=== PATIENT | male | born 1950 | race Caucasian/White ===

== ENCOUNTER 2016-08-08 08:31 | Inpatient (IN) | payer MEDICARE, BC ==
[~2016-08-08] VITALS: Ht 177.8 cm; Wt 153.1 kg
[2016-08-08] MEDS ORDERED: SODIUM CHLORIDE 0.9% 1L BAG IV* STA (08:39)
[2016-08-08] MEDS ORDERED: CEFEPIME 2GM/50 ML (PMX) 50 ML IVPB STA (08:39)
[2016-08-08 08:44] VITALS: Ht 177.8 cm; Wt 153.1 kg
[2016-08-08] MEDS ORDERED: VANCOMYCIN 1 GM (PMX) 250 ML IVPB ONE (09:00)
--- NOTE | 2016-08-08 09:11 | ERA ---
ER Documentation Chief Complaint Date/Time DATE: 08/08/16 TIME: 09:07 Chief Complaint fever, hyperglycemia, and ALOC from SNF HPI Patient is a 66-year-old male who is brought from the longterm with altered level of consciousness. Unfortunately he is not able to speak at baseline. Reportedly his ability to communicate is that he looks at the staff when they talk to him. This morning he was not looking at the staff. This is the extent of the history that was sent with him this morning. They did note prior to sending him that his blood sugar was in the 300s. They did not report fever however he felt warm on arrival. The remainder of the symptoms are limited secondary to patient's inability to communicate. ROS All systems reviewed and are negative except as per history of present illness. Physical Exam Vitals Vital Signs Date Time Temp Pulse Resp B/P Pulse Ox O2 Delivery O2 Flow Rate FiO2 08/08/16 11:11 100.4 91 18 136/55 99 Room Air 08/08/16 10:21 Venti Mask 4 08/08/16 08:44 101.6 86 24 93/65 100 Physical Exam Const: [] Obese male with mild respiratory distress Head: Atraumatic normocephalic Eyes: Normal Conjunctiva ENT: Normal External Ears, Nose and Mouth, T-junction with a trach Neck: Full range of motion..~ No meningismus. Resp: Mild tachypnea with coarse inspiratory breath sounds, poor inspiratory effort Cardio: Irregular rate, not tachycardic Abd: Soft, obese, non tender, non distended. Normal bowel sounds Skin: No petechiae, skin changes of the lower extremities that appear chronic Ext: Patient contracted in both upper and lower extremities Neur: Awake Result Diagram: 08/08/16 0952 08/08/16 0952 Results 24 hrs Laboratory Tests Test 08/08/16 09:51 08/08/16 09:52 08/08/16 10:55 Bedside Glucose 256mg/dL Activated Partial Thromboplast Time 37.7Sec Alanine Aminotransferase (ALT/SGPT) 41IU/L Albumin 2.7g/dl Albumin/Globulin Ratio 0.65 Alkaline Phosphatase 158IU/L Anion Gap 19 Aspartate Amino Transf (AST/SGOT) 27IU/L Basophils # 0.010^3/ul Basophils % 0.1% Blood Urea Nitrogen 46mg/dl Calcium Level 10.1mg/dl Carbon Dioxide Level 26mmol/L Chloride Level 101mmol/L Creatinine 2.71mg/dl Direct Bilirubin 0.00mg/dl Eosinophils # 0.010^3/ul Eosinophils % 0.1% Globulin 4.10g/dl Glucose Level 252mg/dl Hematocrit 27.3% Hemoglobin 8.4g/dl INR International Normalized Ratio 1.98 Indirect Bilirubin 0.0mg/dl Lactic Acid Level 1.3mmol/L 1.4mmol/L Lymphocytes # 0.610^3/ul Lymphocytes % 3.8% Mean Corpuscular Hemoglobin 37.2pg Mean Corpuscular Hemoglobin Concent 30.8g/dl Mean Corpuscular Volume 120.8fl Mean Platelet Volume 9.5fl Monocytes # 0.710^3/ul Monocytes % 4.7% Neutrophils # 13.710^3/ul Neutrophils % 90.3% Nucleated Red Blood Cells # 0.010^3/ul Nucleated Red Blood Cells % 0.0/100WBC Platelet Count 53198^3/UL Potassium Level 3.8mmol/L Prothrombin Time 22.7Sec Prothrombin Time Ratio 1.8 Red Blood Count 2.2610^6/ul Red Cell Distribution Width 16.2% Sodium Level 142mmol/L Total Bilirubin 0.0mg/dl Total Protein 6.8g/dl Troponin I 0.091ng/ml White Blood Count 15.110^3/ul Current Medications Medications (Trade) Dose Ordered Sig/Chiquita Route PRN Reason Start Time Stop Time Status Last Admin Dose Admin Sodium Chloride 4610 ml 4,610 ml BOLUS OVER 2 HOURS STAT IV* 08/08/16 08:39 08/08/16 08:44 DC 08/08/16 10:56 Cefepime HCl 50 ml @ 100 mls/hr ONCE STAT IVPB 08/08/16 08:39 08/08/16 09:08 DC 08/08/16 10:56 Vancomycin HCl (Vancocin) 250 ml @ 125 mls/hr ONCE ONCE IVPB 08/08/16 09:00 08/08/16 10:59 DC 08/08/16 10:57 Procedures/MDM Differential includes but is not limited to fever, sepsis, pneumonia, urinary tract infection, altered mental status, stroke EKG: Rate/Rhythm: Atrial fibrillation at a rate of 80 bpm with poor R- wave progression across the precordium, Q waves noted in lead V1, occasional PVC , no evidence for acute ischemia, no old EKG available for comparison QRS, ST, T-waves: No changes consistent w/ acute ischemia Impression: No evidence of ischemia or arrhythmia Chest x-ray shows complete opacification in the left side of the chest with right sided patchiness consistent with pneumonia CT of the chest shows a soft tissue mass within the left bronchus consistent with either neoplasm or mucous plug, patient has infiltrates of the right upper and lower lobe consistent with pneumonia he also has lymphadenopathy and small pleural effusions Patient was rolled during his visit in order to be cleaned. It was noted that he has significant decubitus ulcers of his buttocks and sacrum. The wound care nurse has been consulted for further care. 11:35 AM: Patient has had no significant change in his clinical status. I have consulted his physician to be admitted to the hospital for further antibiotic therapy. This evaluation for mucous plug/neoplasm can be performed during his treatment here in the hospital. There is no family here at this time. If they arrive while he is here in the emergency department I will update them of his test results. Critical care time of 40 minutes not to include procedures. Departure Diagnosis: Primary Impression: Fever Qualified Code: R50.81 - Fever in other diseases Additional Impressions: Pneumonia Qualified Code: J18.9 - Pneumonia of both lungs due to infectious organism, unspecified part of lung Altered mental status Qualified Code: R40.3 - Persistent vegetative state Renal failure Diabetes Qualified Code: E11.65 - Type 2 diabetes mellitus with hyperglycemia, with long-term current use of insulin Decubitus ulcer of buttock, unstageable Qualified Code: L89.300 - Decubitus ulcer of buttock, unstageable, unspecified laterality Physical deconditioning Condition: Serious (PT ALREADY IN POOR PHYSICAL CONDITION WITH BILATERAL PNEUMONIA AND SEVERE DECUBITUS ULCER OF BUTTOCKS) LEX MILAN Aug 08, 2016 09:11
--- NOTE | 2016-08-08 09:26 | RADRPT ---
PROCEDURE: Chest Radiograph. CLINICAL INDICATION: Sepsis TECHNIQUE: Single frontal chest radiograph. COMPARISON: None available FINDINGS: A tracheostomy tube and right chest wall tunneled hemodialysis catheter in place. There is complete opacification of the left hemithorax with mediastinal shift to the left. There is nonspecific patch y opacities throughout the right lung. The bones are intact. IMPRESSION: 1. Complete opacification of the left hemithorax with mediastinal shift to the left consistent with volume loss which may be related to left pleural effusion and associated compressive atelectasis. T here is likely complete collapse of the left lung. Consider CT chest for further evaluation if shannon cated. Comparison to a prior imaging would be of benefit. 2. Mild patchy air space disease throughout the right lung. 3. Tracheostomy tube and right chest wall tunneled hemodialysis catheter. RPTAT: KK .Arnold Mclain MD, Date Time Electronically viewed and signed by .Arnold Mclain MD, on 08/08/2016 09:26 .B/
[2016-08-08 10:06] LABS: ADD SCAN DIFF NO
[2016-08-08 10:08] LABS: ABNORMAL IP MESSAGE 1; BASOPHILS % 0.1 % (0.0-2.0); EOSINOPHILS % 0.1 % (0.0-7.0); HEMATOCRIT 27.3 % (42.0-52.0); HEMOGLOBIN 8.4 g/dl (14.0-18.0); LYMPHOCYTES # 0.6 10^3/ul (0.8-2.9); LYMPHOCYTES % 3.8 % (15.0-51.0); MEAN CORPUSCULAR HEMOGLOBIN 37.2 pg (29.0-33.0); MEAN CORPUSCULAR HGB CONC 30.8 g/dl (32.0-37.0); MEAN CORPUSCULAR VOLUME 120.8 fl (82.0-101.0); MEAN PLATELET VOLUME 9.5 fl (7.4-10.4); MONOCYTE # 0.7 10^3/ul (0.3-0.9); MONOCYTES % 4.7 % (0.0-11.0); NEUTROPHIL # 13.7 10^3/ul (1.6-7.5); NEUTROPHILS % 90.3 % (39.0-77.0); PLATELET COUNT 206 10^3/UL (140-415); RED BLOOD COUNT 2.26 10^6/ul (4.70-6.10); RED CELL DISTRIBUTION WIDTH 16.2 % (11.5-14.5); WHITE BLOOD COUNT 15.1 10^3/ul (4.8-10.8)
[2016-08-08 10:18] LABS: ALBUMIN 2.7 g/dl (3.3-4.9); POTASSIUM 3.8 mmol/L (3.5-5.1)
[2016-08-08 10:20] LABS: CREATININE 2.71 mg/dl (0.61-1.24)
[2016-08-08 10:21] LABS: ALBUMIN/GLOBULIN RATIO 0.65; TOTAL PROTEIN 6.8 g/dl (6.1-8.1)
[2016-08-08 10:22] LABS: CALCIUM 10.1 mg/dl (8.4-10.2); INR 1.98; PROTIME 22.7 Sec (12.2-14.2); PT RATIO 1.8
[2016-08-08 10:23] LABS: PARTIAL THROMBOPLASTIN TIME 37.7 Sec (25.0-35.0)
[2016-08-08 10:32] LABS: TROPONIN-I 0.091 ng/ml (0.00-0.12)
--- NOTE | 2016-08-08 10:50 | RADRPT ---
PROCEDURE: CT brain without contrast CLINICAL INDICATION: Altered mental status TECHNIQUE: CT of the brain without contrast performed on a multidetector CT scanner, with multiplan ar reformats. One or more of the following dose reduction techniques were used: Automated exposure control, adjustment in mA and / or kV according to patient size, use of iterative reconstructive shu hnique. CTDIvol = 45 mGy; DLP = 810 mGy-cm. COMPARISON: None available FINDINGS: No acute intracranial hemorrhage is identified. No extra-axial fluid collection is seen. There is no mass effect. No midline shift is identified. Ventricles and sulci are mild to moderately enlarged compatible with volume loss. There are mild-moderate areas of hypodensity in the periventricular - deep white matter which are no nspecific but suggestive of chronic small vessel ischemic changes. Olmedo-white differentiation is pr eserved. Atherosclerotic calcifications of the proximal intracranial arteries are noted. Osseous structures are unremarkable. Mastoid air cells are partially opacified. IMPRESSION: 1. No evidence of acute intracranial pathology. 2. Mild to moderate volume loss, with mild to moderate chronic small vessel ischemic changes. RPTAT: VV .Nakul Armenta MD, MD Date Time Electronically viewed and signed by .Nakul Armenta MD, on 08/08/2016 10:50 .O/
--- NOTE | 2016-08-08 11:15 | RADRPT ---
PROCEDURE: CT Chest Without Contrast CLINICAL INDICATION: Clear with opacification of left lung, renal failure TECHNIQUE: Volumetric acquisition of the thorax was performed without the intravenous administrati on of contrast. Radiation Dose: CTDI = 16.75 mGy; DLP = 728.06 mGy-cm. COMPARISON: Chest radiograph done earlier on the same date The previous radiograph demonstrated nearly complete opacification of the left hemithorax. FINDINGS: An endotracheal tube and a right jugular dialysis catheter are seen to be in place. Lung singh: There is high-grade atelectasis of the entire left lung. There is soft tissue density within the left mainstem bronchus and within the lower lobe bronchi which could represent mucus or n eoplasm. There is alveolar infiltrate and atelectasis involving the right upper lobe as well as the posterior right lower lobe. The pleural spaces: Small bilateral gravitating pleural fluid accumulations are evident. There is n o pneumothorax. Lymph nodes: There is a 1.5 cm in short diameter subcarinal node. There are several 1.[address] pretracheal nodes. There are several nodes seen lateral to the left pulmonary artery measuring 1 cm in diameter. Cardiovascular structures: The heart is moderately enlarged and there is coronary artery disease. A gilson is normal in caliber. There is artifact from a dialysis catheter with the tip located at the a trial caval junction. The mediastinum is shifted leftward. Thyroid: The thyroid is not adequately seen. Superior abdominal structures: There is cholelithiasis. A 2.7 cm hypodense nodule extends superiorl y off the superior pole right kidney measuring 38 HU. There are staghorn calculi within the left ki dney. Osseous structures: The osseous elements are rarefied and there is anterior osteophytic bridging iggy picious for dish. IMPRESSION: 1. Nearly complete atelectasis of the left lung. There is soft tissue density within the left main stem and lower lobe bronchi which could represent mucous or neoplasm. There is consolidation with v olume loss to the right upper lobe and to the posterior right lower lobe. 2. Small bilateral gravitating pleural fluid accumulations. 3. Mediastinal adenopathy as described. 4. The mediastinum is shifted leftward and there is mild cardiomegaly with coronary artery disease. A dialysis catheter is seen with the tip at the atrial caval junction. 5. A 2.7 cm hypodense nodule extend superiorly off the superior pole of the right kidney and there are staghorn calculi within the left renal collecting system. 6. Cholelithiasis. 7. Osteoporosis with spine changes suspicious for diffuse idiopathic skeletal hyperostosis. 8. Tracheostomy tube in place. Physician Garett Date Time Electronically viewed and signed by Diana Barrientos Physician on 08/08/2016 11:14 /
[2016-08-08] MEDS ORDERED: ACETAMINOPHEN 325 MG TAB PO PRN (12:00)
[2016-08-08] MEDS ORDERED: ONDANSETRON 4 MG INJ IV PRN (12:00)
[2016-08-08 12:17] LABS: AADO2 Arterial 153.9 mmHg (7.0-24.0); Allen Test ACCEPTAB; Arterial Base Excess -2.6 mmol/L (-3.0-3); Arterial COHb 0.3 % (0.0-3.0); Arterial Fraction of Oxyhgb 91.5 % (93.0-99.0); Arterial HCO3 27.8 mmol/L (22.0-26.0); Arterial MetHb 0.3 % (0.0-1.5); Arterial Total Hemglobin 9.5 g/dl (12.0-18.0); MODE TRACH COLLAR
[2016-08-08] MEDS ORDERED: ACET650T82 GTB (12:27)
[2016-08-08] MEDS ORDERED: hydrALAzine 20 MG INJ IV ONE ×2 (12:30→14:00)
[2016-08-08] MEDS ORDERED: DARB60VI IJ (12:31)
[2016-08-08] MEDS ORDERED: BISA1POW RECTAL (12:31)
[2016-08-08] MEDS ORDERED: BUME2TAB18 G-TUBE (12:34)
[2016-08-08] MEDS ORDERED: COU3 GTB (12:34)
[2016-08-08] MEDS ORDERED: ROSU5TAB5 GTB (12:35)
[2016-08-08] MEDS ORDERED: IPRA3AMP INH (12:39)
[2016-08-08] MEDS ORDERED: FLUT16SP17 NASAL (12:39)
[2016-08-08] MEDS ORDERED: FAMO20TA18 GTB (12:39)
[2016-08-08] MEDS ORDERED: SS SC (12:41)
[2016-08-08] MEDS ORDERED: ACETAMINOPHEN 650MG/20.3ML CUP GTB PRN (12:41)
[2016-08-08] MEDS ORDERED: LANT3I SC (12:41)
[2016-08-08] MEDS ORDERED: PROT946L GTB (12:48)
[2016-08-08] MEDS ORDERED: PARO-37 GTB (12:48)
[2016-08-08] MEDS ORDERED: CHOL20003 GTB (12:48)
[2016-08-08] MEDS ORDERED: ASCO120P GTB (12:48)
[2016-08-08] MEDS ORDERED: ONDA4SOL GTB (12:48)
[2016-08-08] MEDS ORDERED: NEPH GTB (12:48)
[2016-08-08] MEDS ORDERED: SENN-53 GTB (12:48)
[2016-08-08] MEDS ORDERED: ONDANSETRON (2 MG/2.5 ML PO SYG) GTB PRN (13:00)
[2016-08-08] MEDS ORDERED: BISACODYL 10 MG SUPP PR PRN (13:00)
[2016-08-08] MEDS ORDERED: BUMETANIDE 1 MG TAB GTB PRN (13:00)
[2016-08-08] MEDS ORDERED: NON-FORMULARY/PATIENT OWN MED (Protein Supplement (Promod) 30 ML) GTB SCH (13:00)
--- NOTE | 2016-08-08 14:01 | HP ---
DATE OF ADMISSION: 08/08/2016 CHIEF COMPLAINT: Respiratory failure, sepsis. HISTORY OF PRESENT ILLNESS: This is a 66-year-old male with a past medical history of end-stage ronnie al disease on hemodialysis, history of chronic respiratory failure, status post tracheostomy, histor y of dysphagia, status post PEG, history of encephalopathy, history of diabetes, hypertension, histo ry of AFib, who presents to [facility] for evaluation of worsening mental status. The patient apparently at baseline is nonresponsive, but is able to track and was noted this daniel moon, the patient to be altered. The patient was subsequently transferred to [facility]. In the emergency room, the patient was noted to be febrile with a temperature of 101.6. The patient in the ER had an ABG drawn, which showed a pH 7.12, pCO2 of 87. Chest x-ray was obtained which showed patchy airspace disease throughout the right lung opacificatio n of left hemithorax, slight mediastinal shift to the left. A CT scan of the chest was also obtaine d which showed atelectasis at the left lung as well as soft tissue density left mainstem, left lower lobe bronchi which could represent mucus or neoplasm and consolidation of the right upper lobe, med iastinal adenopathy, mediastinal shift, dialysis catheter, hyperdense nodule in the superior aspect of right kidney, cholelithiasis, and osteoporosis. In the emergency room, the patient was given IV antibiotics, was given 1 liter of IV fluid. Upon my evaluation of patient at this time is currently nonresponsive, does retract to deep painful stimuli. There have been no reports of hemoptysis, hemetemesis, or hematochezia. PAST MEDICAL HISTORY: As stated above, history of chronic encephalopathy, history of end-stage steve l disease, history of hypertension, history of arrhythmia, history of morbid obesity, history of aime betes, hypertension, history of CHF, dyslipidemia. PAST SURGICAL HISTORY: Status post trach, status post PEG, status post dialysis PermCath. ALLERGIES: NO KNOWN DRUG ALLERGIES. FAMILY HISTORY: Noncontributory. SOCIAL HISTORY: Lives at a subacute facility. MEDICATIONS: The patient's medications have been reviewed and reconciled. REVIEW OF SYSTEMS: Unable to do adequate review of systems as patient is obtunded. Pertinent posit zachery stated in HPI, otherwise negative. PHYSICAL EXAMINATION: VITAL SIGNS: Blood pressure 157/130, respirations 15, pulse 99, temperature 98.0. HEENT: Head is normocephalic. Pupils are reactive to light. NECK: Supple. HEART: Irregularly irregular. LUNGS: Show has diminished to no breath sounds at left base. The right base has positive rhonchi. ABDOMEN: Obese, soft, positive PEG. EXTREMITIES: Negative for clubbing, cyanosis. Trace edema. DERMATOLOGIC: No rashes. MUSCULOSKELETAL: Positive decubitus wound noted. NEUROLOGIC: The patient is obtunded, limited exam. LABORATORY DATA: Shows a sodium 142, potassium 3.9, chloride 101, BUN 46, creatinine 2.71. White c ount 15.1, hemoglobin 8.4, hematocrit 27.3, platelet count 206. ABG showed as stated above, pH 7.12 , pCO2 of 87, pO2 of 67. IMAGING STUDIES: As stated in HPI. ASSESSMENT AND PLAN: This 66-year-old male who presents with: 1. Severe sepsis. Underlying source is likely secondary to healthcare-associated pneumonia. The p guera's CT scan chest x-ray shows evidence of right upper lobe infiltrate and left lung atelectasis . Plan at this point is to check blood cultures, urine culture and will check sputum culture. The p atient's lactic acid was checked within normal limits. We will check procalcitonin level. We will continue the patient on empiric antibiotics of cefepime, vancomycin and place an ID consult for eval uation. 2. Hypercapnic hypoxemic respiratory failure. The patient has been placed back on ventilator suppo rt. We will place a pulmonary consult for evaluation. ABG was reviewed. 3. Hypertensive urgency. The patient's systolic blood pressures is greater than 200. Plan is to g george patient hydralazine 5 mg IV x1. We will also order hemodialysis for volume removal. We will mi nimize IV fluids. 4. End-stage renal disease on dialysis 3 times weekly. The patient will be dialyzed today for 3 ho urs, 3 K bath, calcium 2.5, will ultrafiltrate as tolerated. 5. Acute on chronic encephalopathy. Etiology is likely secondary to sepsis, toxic metabolic. The patient's CT scan of the brain shows no evidence of acute cerebrovascular accident. We will continu e to monitor. Consider neurologic evaluation. 6. Anemia of chronic disease. Monitor hemoglobin and hematocrit levels. We will give Epogen neede d. 7. Mineral bone disorder. Continue to monitor calcium and phosphorus levels. No need for phosphat e binders. 8. Diabetes. Continue Lantus, Accu-Cheks and sliding scale. 9. Dysphagia, status post PEG. The patient will be resumed on tube feeding. 10. Decubitus wound. Place wound care consult, consider general surgery consult for evaluation and debridement. 11. History of arrhythmia. We will continue to monitor. Continue Coumadin. INR is near goal. Co nsider cardiology evaluation. 12. Gastrointestinal and deep venous thrombosis prophylaxis. Continue proton pump inhibitor and Co umadin. Dictated By: JENNIFER TAFOYA DO NR/ODALYS Conf#: [id number] DID#: [id number]
--- NOTE | 2016-08-08 15:21 | CONS ---
Date/Time of Note Date/Time of Note DATE: 08/08/16 TIME: 15:18 Assessment/Plan Assessment/Plan Chief Complaint/Hosp Course Sepsis Acute on chronic encephalopathy Acute respiratory failure HCAP ESRD DM Dysphagia Plan: Figueroa cx, bld cx with next HD, start Vanco and Merrem, pulmonary eval Problems: Consultation Date/Type/Reason Admit Date/Time Type of Consultation: ID Referring Provider: JENNIFER TAFOYA DO Social History Smoking Status: Unknown if ever smoked Exam/Review of Systems Vital Signs Vitals Vital Signs Date Time Temp Pulse Resp B/P Pulse Ox O2 Delivery O2 Flow Rate FiO2 08/08/16 14:55 86 13 89/54 100 Mechanical Ventilator 08/08/16 12:33 98.0 08/08/16 12:30 50 08/08/16 10:21 4 Results Result Diagram: 08/08/16 0952 08/08/16 0952 Results 24 hrs Laboratory Tests Test 08/08/16 08:39 08/08/16 09:51 08/08/16 09:52 08/08/16 10:55 Arterial Blood HCO3 27.8 H Arterial Blood Base Excess -2.6 Arterial Blood Oxygen Saturation 92.1 L Morgan Test ACCEPTAB Arterial Blood Gas Puncture Site Right Radial Arterial Blood Carboxyhemoglobin 0.3 Arterial Blood Date Drawn 08/08/2016 12:10:50 PM Arterial Blood Methemoglobin 0.3 Arterial Blood pCO2 (Temp correct) 87.2 *H Arterial Blood pH (Temp corrected) 7.121 *L Arterial Blood pO2 (Temp corrected) 67.8 L Blood Gas A-a O2 Differential 153.9 H Blood Gas Critical Value Read Back Gary MILAN MD Blood Gas Modality [facility] Blood Gas Notified Time 08/08/2016 12:16:55 PM Blood Gas Notified Whom SARA Blood Gas Specimen Source Blood arterial Blood Gas Temperature 37.0 FiO2 45.0 Oxyhemoglobin Percent 91.5 L Total Hemoglobin 9.5 L Bedside Glucose 256 H Activated Partial Thromboplast Time 37.7 H Alanine Aminotransferase (ALT/SGPT) 41 Albumin 2.7 L Albumin/Globulin Ratio 0.65 Alkaline Phosphatase 158 H Anion Gap 19 H Aspartate Amino Transf (AST/SGOT) 27 Basophils # 0.0 Basophils % 0.1 Blood Urea Nitrogen 46 H Calcium Level 10.1 Carbon Dioxide Level 26 Chloride Level 101 Creatinine 2.71 H Direct Bilirubin 0.00 Eosinophils # 0.0 Eosinophils % 0.1 Globulin 4.10 H Glucose Level 252 H Hematocrit 27.3 L Hemoglobin 8.4 L INR International Normalized Ratio 1.98 Indirect Bilirubin 0.0 Lactic Acid Level 1.3 1.4 Lymphocytes # 0.6 L Lymphocytes % 3.8 L Mean Corpuscular Hemoglobin 37.2 H Mean Corpuscular Hemoglobin Concent 30.8 L Mean Corpuscular Volume 120.8 H Mean Platelet Volume 9.5 Monocytes # 0.7 Monocytes % 4.7 Neutrophils # 13.7 H Neutrophils % 90.3 H Nucleated Red Blood Cells # 0.0 Nucleated Red Blood Cells % 0.0 Platelet Count 206 Potassium Level 3.8 Prothrombin Time 22.7 H Prothrombin Time Ratio 1.8 Red Blood Count 2.26 L Red Cell Distribution Width 16.2 H Sodium Level 142 Total Bilirubin 0.0 L Total Protein 6.8 Troponin I 0.091 White Blood Count 15.1 H Test 08/08/16 13:45 Lactic Acid Level 2.0 Medications Medications Current Medications Cholecalciferol (Vitamin D) 2,000 unit DAILY GTB ; Start 08/09/16 at 09:00; Status UNV Famotidine (Pepcid) 20 mg DAILY GTB ; Start 08/09/16 at 09:00; Status UNV Fluticasone Propionate (Flonase 0.05% Nasal) 1 spray DAILY NASAL ; Start at 09:00; Status UNV Insulin Glargine (Lantus) 8 unit QHS SC ; Start 08/08/16 at 21:00; Status UNV Albuterol/ Ipratropium (Duoneb) 3 ml Q6 PRN INH SHORTNESS OF BREATH; Start at 13:00; Status UNV Multivit/Ca Carb/ B Cmplx/FA/Prenat (Magui-Cedric) 1 tab DAILY GTB ; Start at 09:00; Status UNV Ondansetron HCl (Zofran (Ped)) 4 mg Q6H PRN GTB NAUSEA AND/OR VOMITING; Start 08/08/16 at 13:00; Status UNV Paroxetine HCl (Paxil) 20 mg DAILY GTB ; Start 08/09/16 at 09:00; Status UNV Senna (Senokot) 2 tab hs GTB ; Start 08/08/16 at 21:00; Status UNV Warfarin Sodium (Coumadin) 4 mg DAILY GTB ; Start 08/09/16 at 09:00; Status UNV Miscellaneous Information 650 mg Q4 GTB ; Start 08/08/16 at 13:00; Status UNV Miscellaneous Information 250 mg DAILY GTB ; Start 08/09/16 at 09:00; Status UNV Miscellaneous Information 10 mg DAILY PRN RECTAL CONSTIPATION; Start 08/08/16 at 13:00; Status UNV Miscellaneous Information 2 mg DAILY PRN G-TUBE william; Start 08/08/16 at 13:00; Status UNV Miscellaneous Information 30 ml TID GTB ; Start 08/08/16 at 13:00; Status UNV Miscellaneous Information 5 mg QHS GTB ; Start 08/08/16 at 21:00; Status UNV Miscellaneous Information (* Miscellaneous Pharmacy Order) HYPOGLYCEMIA PROTOCOL w... ONCE ONCE XX ; Start 08/08/16 at 13:00; Stop 08/08/16 at 13:01; Status UNV Miscellaneous Information (* Miscellaneous Pharmacy Order) Discontinue Glyburide , Glipizide,... ONCE ONCE XX ; Start 08/08/16 at 13:00; Stop 08/08/16 at 13:01 ; Status UNV Miscellaneous Information (* Miscellaneous Pharmacy Order) Discontinue all previ... ONCE ONCE XX ; Start 08/08/16 at 13:00; Stop 08/08/16 at 13:01; Status UNV SLAVA CHILDRESS NP Aug 08, 2016 15:20
[2016-08-08] MEDS ORDERED: VANCOMYCIN IV PER PHARMACY XX SCH (15:30)
[2016-08-08] MEDS ORDERED: SOD CHLORIDE 0.9% 1,000 ML IV STA ×2 (16:33→18:24)
[2016-08-08] MEDS ORDERED: LIDOCAINE 1% (MDV) 20 ML INJ SC ONE (18:30)
[2016-08-08] MEDS ORDERED: NORepinephrine 8MG/250 ML (PMX 250 ML ONE (19:01)
[2016-08-08] MEDS ORDERED: NORepinephrine 8MG/250 ML (PMX 250 ML IV STA (19:01)
[2016-08-08] MEDS ORDERED: ALBUTEROL/IPRATROPIUM (NEB) 3 ML AMP INH PRN (20:00)
[2016-08-08] MEDS: SENNA TAB GTB SCH (20:54)
[2016-08-08] MEDS: INSULIN GLARGINE [LANtus] 3 ML PEN SC SCH (20:56)
[2016-08-08] MEDS ORDERED: DEXTROSE 50% 50 ML SYRINGE IV PRN ×2 (21:00)
[2016-08-08] MEDS: INSULIN ASPART [NOVOLOG] 3 ML PEN SC SCH ×2 (21:00→21:32)
[2016-08-08] MEDS ORDERED: GLUCOSE GEL 15 GRAM TUBE BUCCAL PRN (21:00)
[2016-08-08] MEDS ORDERED: GLUCAGON 1 MG INJ IM PRN (21:00)
[2016-08-08] MEDS ORDERED: GLUCOSE GEL 15 GRAM TUBE PO PRN ×2 (21:00)
[2016-08-08] MEDS: MEROPENEM 500 MG/100 ML (PMX) 100 ML IVPB SCH (21:25)
[2016-08-08] MEDS ORDERED: VANCOMYCIN 1 GM in NS 250 ML IVPB ONE (23:45)
[2016-08-09] VITALS (79 sets, daily range): BP systolic 75–136; BP diastolic 36–117; PULSE 75–100; RESP 12–34; TEMP 98.7
[2016-08-09 03:31] LABS: AADO2 Arterial 107.8 mmHg (7.0-24.0); Allen Test ACCEPTAB; Arterial Base Excess -4.9 mmol/L (-3.0-3); Arterial COHb 0.3 % (0.0-3.0); Arterial Fraction of Oxyhgb 96.6 % (93.0-99.0); Arterial HCO3 20.9 mmol/L (22.0-26.0); Arterial MetHb 0.2 % (0.0-1.5); Arterial Total Hemglobin 9.9 g/dl (12.0-18.0); MODE VENT - AC
[2016-08-09 05:43] LABS: ADD SCAN DIFF NO
[2016-08-09 05:59] LABS: HEMATOCRIT 25.6 % (42.0-52.0); HEMOGLOBIN 7.9 g/dl (14.0-18.0); MEAN CORPUSCULAR HEMOGLOBIN 36.2 pg (29.0-33.0); MEAN CORPUSCULAR HGB CONC 30.9 g/dl (32.0-37.0); MEAN CORPUSCULAR VOLUME 117.4 fl (82.0-101.0); MEAN PLATELET VOLUME 10.4 fl (7.4-10.4); RED BLOOD COUNT 2.18 10^6/ul (4.70-6.10); WHITE BLOOD COUNT 12.3 10^3/ul (4.8-10.8)
[2016-08-09 06:05] LABS: POTASSIUM 3.1 mmol/L (3.5-5.1)
[2016-08-09 06:07] LABS: CREATININE 2.94 mg/dl (0.61-1.24)
[2016-08-09 06:08] LABS: CALCIUM 10.1 mg/dl (8.4-10.2); MAGNESIUM 2.6 mg/dl (1.7-2.5); PHOSPHORUS 2.9 mg/dl (2.5-4.9)
[2016-08-09 07:11] LABS: PLATELET COUNT 161 10^3/UL (140-415)
[2016-08-09] MEDS ORDERED: POTASSIUM CHLORIDE 20 MEQ POWDER FOR ORAL SOLN GTB ONE (08:00)
--- NOTE | 2016-08-09 08:54 | PN ---
DATE: 08/09/2016 SUBJECTIVE: The patient is currently in intensive care unit on pressor support, critically ill over night, no other events noted. No hematemesis, hematochezia. The patient is mildly more alert, able to track with his eyes. No other events noted. OBJECTIVE: VITAL SIGNS: Blood pressure is 94/68, respirations 15, pulse 83, temperature 98.2. I's AND O'S: The patient 1100 in, no urinary output. HEENT: Head is normocephalic. Pupils are reactive. NECK: Shows trach. HEART: Regular rate. LUNGS: Show diminished breath sounds at base. ABDOMEN: Soft, obese, nontender to palpation. Positive PEG. EXTREMITIES: Negative for clubbing, cyanosis. Trace edema. DERMATOLOGIC: No rashes. MUSCULOSKELETAL: Positive decubitus wound. NEUROLOGIC: No change in exam. DERMATOLOGIC: No rashes. LABORATORY DATA: Shows a sodium 144, potassium 3.1, BUN 25, creatinine 2.94, magnesium 2.9, pH 7.31 , PCO2 42, pO2 92. ASSESSMENT AND PLAN: 1. Septic shock, etiology is likely multifactorial secondary to healthcare-associated pneumonia, po ssible urinary tract infection and/or decubitus wound. The patient currently is on pressor support and IV antibiotics. The patient's blood cultures and urine culture have been sent. The patient's la ctic acid levels are within normal limits. Plan at this point is to continue current treatment plan . Continue to wean off pressor support. Continue antibiotic therapy. The patient is status post 4 liters of IV fluids. Will minimize IV fluids as pressor support is being titrated off as patient i s a dialysis patient. Will follow up with Infectious Disease. 2. Hypercapnic hypoxemic respiratory failure. The patient was placed back on ventilator support. Repeat ABG has been reviewed with improvement. Continue current vent settings. We will follow up w ith pulmonary. 3. Hypertension. The patient now is in shock. Will continue to monitor. Continue treatment plan as stated above. 4. End-stage renal disease. Patient scheduled for dialysis today for 3 hours on 3 K bath, calcium 2.5. Will minimalize ultrafiltration. 5. Hypokalemia. We will replete with potassium chloride. 6. Acute on chronic encephalopathy. Etiology is likely septic, toxic metabolic. The patient's CT scan showed no acute findings. Will continue to monitor. Consider neurologic evaluation. 7. Anemia of chronic disease. Continue to monitor H and H levels. Continue Epogen. 8. Mineral bone disorder. Continue to monitor calcium and phosphorus levels. No need for phosphate binders. 9. Diabetes. Will continue Lantus, Accu-Cheks and sliding scale. 10. Dysphagia. Status post PEG. Will place a dietary consult, start tube feeds. 11. Decubitus wound. Continue wound care, offloading. Consider general surgical consult. 12. History of arrhythmia, atrial fibrillation, patient is currently rate controlled on Coumadin. INR is near goal. Follow up with cardiology. 13. GI and deep vein thrombosis prophylaxis. Continue proton pump inhibitor and Coumadin. Please note I spent over 40 minutes of critical care time with this patient. Dictated By: JENNIFER KNOWLES/ODALYS Conf#: [id number] DID#: [id number]
[2016-08-09] MEDS ORDERED: VANCOMYCIN 1 GM in NS 250 ML IVPB ONE (09:00)
--- NOTE | 2016-08-09 09:20 | CONS ---
DATE OF ADMISSION: 08/08/2016 DATE OF CONSULTATION: 08/09/2016 CARDIOLOGY CONSULTATION REFERRING PHYSICIAN: Dr. Pereyra REASON FOR CONSULTATION: Atrial fibrillation, shock. CHIEF COMPLAINT: Altered level of consciousness. HISTORY OF PRESENT ILLNESS: Thank you for this referral. History obtained from the patient's chart , review of the old chart, discussion with physician and staff including Dr. Pereyra. The patient i s unable to provide history ____ complicated medical history status post tracheostomy and chronic re spiratory failure who was brought in because after of consciousness. The patient was noted to be fe brile and in shock and septic. He has atrial fibrillation. Apparently he has been on Coumadin. Al so markedly anemic. Has been admitted to intensive care unit overnight, has been placed on Levophed drip. This morning, his blood pressure has improved on antibiotic, his Levophed is being weaned of f. He was also in respiratory acidosis on admission with pH of 7.12 and pCO2 of 87. The patient is unable to provide any history to me. His rhythm has showed atrial fibrillation, but his rate has b een under good control so far. PAST MEDICAL HISTORY: History of renal failure, on dialysis, history of chronic respiratory failure , status post tracheostomy, vent dependent, history of hypertension, history of atrial fibrillation, morbid obesity, diabetes, hypertension, CHF, dyslipidemia, possible strokes in the past as well. PAST SURGICAL HISTORY: Tracheostomy, PEG placement, dialysis access placement. ALLERGIES: NO KNOWN REPORTED ALLERGIES. FAMILY HISTORY: No reported early coronary artery disease. SOCIAL HISTORY: The patient lives in a subacute facility. At this point there is no active tobacco , alcohol, or drug abuse. Unable to obtain the old records. MEDICATIONS: As per medical reconciliation, personally reviewed. REVIEW OF SYSTEMS: Unable to obtain except for above-mentioned. PHYSICAL EXAMINATION: VITAL SIGNS: Temperature 98.1, T-max is 101.6 degrees on admission, heart rate of 83, blood pressur e 94/68, respiration rate of 17, saturating 100% on the vent, 35% oxygen. HEENT: Normocephalic, atraumatic. Morbidly obese gentleman. Status post tracheostomy, on the vent . Eyes: Pupils are equal and round. NECK: Status post tracheostomy, on the vent. CARDIOVASCULAR: Regular rate and rhythm. Distant heart sounds. Difficult to assess for murmur. PULMONARY: Mild rhonchi, diffuse. No wheezes heard. GASTROINTESTINAL: Obese, soft, nontender. Status post PEG placement. EXTREMITIES: Positive lower extremity edema. Positive hyperpigmentation of lower extremities. NEUROLOGIC: Opens his eyes; however, does not appear to be following commands. PSYCHIATRIC: Appears to be calm. LABORATORY DATA: INR was 1.98 on admission yesterday. Sodium 144, potassium 3.1, BUN of 35, creati nine 2.94, glucose of 158. WBC of 12.3, hemoglobin 7.9, platelets of 161. DIAGNOSTIC DATA: Chest x-ray done yesterday showed complete opacification of left hemithorax. CT o f the chest done yesterday shows nearly complete atelectasis of the left lung. There is soft tissue density within the left mediastinum and left lower lobe bronchi which could present mucus or neopla sm. There is a consolidation with volume loss in the right upper lobe and posterior right lower lob e. Small bilateral pleural accumulation. There is some adenopathy. Mild cardiomegaly with coronar y artery disease. Dialysis catheter was seen, 2.7 cm hyperdense nodule extends off of the superior pole of the right kidney. Cholelithiasis. EKG was personally reviewed, showed atrial fibrillation. I personally reviewed. Low voltage. Poss ible anterior infarct, age undetermined. There is a PVC noted as well. ASSESSMENT AND PLAN: 1. Septic shock. 2. Hypoxemic respiratory failure. 3. Hypercapnic respiratory failure, acute on chronic. 4. Renal failure, on dialysis. 5. History of hypertension. 6. Diabetes. 7. Electrolyte abnormalities and hypokalemia. 8. Chronic atrial fibrillation, on anticoagulation. 9. Anemia. 10. Dysphagia, status post percutaneous endoscopic gastrostomy placement. 11. History of decubitus wounds. RECOMMENDATIONS: Antibiotic is managed as per ID recommendation, follow with pulmonary recommendati ons, ____ suctioning and possibly bronchoscopy, will be deferred to pulmonary if needed. Coumadin w ill be continued. PT/INR will be checked again tomorrow and adjusted. INR currently is a 2. We di d additional antibiotic, that may need to be decreased, Coumadin. The patient will be titrated off of the Levophed as tolerated. I will also check an echocardiogram to evaluate for LV function. Ángela lysis as per renal will be continued. We will continue to follow along with you. Dictated By: THOM HUSAIN/ODALYS Conf#: [id number] DID#: [id number] CC: JENNIFER PEREYRA DO;*EndCC*
[2016-08-09 09:34] LABS: INR 2.16; PROTIME 24.3 Sec (12.2-14.2); PT RATIO 1.9
[2016-08-09] MEDS: INSULIN ASPART [NOVOLOG] 3 ML PEN SC SCH ×4 (09:56→21:00)
[2016-08-09 09:58] LABS: LYMPHOCYTES # 0.4 10^3/ul (0.8-2.9); MONOCYTE # 0.9 10^3/ul (0.3-0.9); NEUTROPHIL # 10.7 10^3/ul (1.6-7.5); PLATELETS CLUMPS RARE
--- NOTE | 2016-08-09 10:15 | CONS ---
Date/Time of Note Date/Time of Note DATE: 08/09/16 TIME: 10:09 Assessment/Plan Assessment/Plan Additional Assessment/Plan Chest x-ray was reviewed from yesterday which is showing extensive consolidation involving the left lung. There is volume loss as well and mediastinal shift towards the left. Ventilator setting; are AC of 16 tidal volume 550, PEEP of 5, 30% FiO2. Assessment recommendations; 1. Patient admitted for sepsis and healthcare associated pneumonia involving the left lung. Currently on appropriate antibiotic regimen. 2. Multiple other comorbidities as outlined above. Patient currently getting hemodialyzed at bedside. Continue current treatment. Obtain follow-up chest x-ray in 24 hours. The patient may need to have a bronchoscopy performed. Consultation Date/Type/Reason Admit Date/Time Date of Consultation: Aug 09, 2016 Type of Consultation: Pulmonary/critical care Reason for Consultation Pulmonary consultation obtained for evaluation of respiratory failure. Patient admitted for sepsis. History presenting; patient is a 66-year-old white male who was admitted [facility] for evaluation of hypoxemia upon evaluation a chest x-ray was done which is showing complete white out of the left lung. Possibly indicative of underlying extensive pneumonia versus mucus plugging. Patient currently getting hemodialysis at bedside. She was obtained from medical records. The patient is awake but unresponsive to any commands. Past medical history; 1. History of CVA. 2. History of chronic respiratory failure. It is unclear at this point where the patient is ventilator dependent orders maintained on T piece in the prison. 3. Morbid obesity. 4. Cardiac arrhythmia. 5. End-stage renal disease, on hemodialysis. 6. Hypertension. 7. Diabetes. 8. History of sacral decubitus wound. 9. History of tracheostomy and G-tube placement. 10. Based upon examination, history of right thigh surgery. Medications; were reviewed. Allergies; are none. Next Social history; family history; occupational history; the not available. Next Review of systems; not obtainable. General exam; elderly male, morbidly obese, on ventilator via tracheostomy awake but does not respond to any commands. Social History Smoking Status: Unknown if ever smoked Exam/Review of Systems Vital Signs Vitals Vital Signs Date Time Temp Pulse Resp B/P Pulse Ox O2 Delivery O2 Flow Rate FiO2 08/09/16 09:00 81 19 120/80 100 08/09/16 07:43 35 08/09/16 07:30 98.1 Mechanical Ventilator 08/08/16 10:21 4 Intake and Output 08/08/16 08/08/16 08/09/16 15:00 23:00 07:00 Intake Total 1115.00 ml 25.500 ml Balance 1115.00 ml 25.500 ml Exam HEENT exam; supple neck, JVD difficult to see because of short neck. Patient has fair dentition. Tracheostomy in place with clean insertion site. No neck masses, no thyromegaly. Chest examination; diminished breath sounds throughout. S1-S2 audible, no murmurs. Regular rhythm. Abdomen exam is; is grossly protuberant. G-tube in place. Bowel sounds audible. Extremity examination; there is a well-healed right thigh scar. Pulses 1+ bilaterally. There is trace edema. APPOINTMENT SETTER examination; patient is awake but does not follow any commands. Has contractures involving all 4 extremities. Results Result Diagram: 08/09/16 0530 08/09/16 0530 Results 24 hrs Laboratory Tests Test 08/08/16 10:55 08/08/16 13:45 08/08/16 20:54 08/08/16 23:49 Lactic Acid Level 1.4 2.0 Bedside Glucose 197 Arterial Blood HCO3 20.9 L Arterial Blood Base Excess -4.9 L Arterial Blood Oxygen Saturation 97.1 Morgan Test ACCEPTAB Arterial Blood Gas Puncture Site Right Radial Arterial Blood Carboxyhemoglobin 0.3 Arterial Blood Date Drawn 08/09/2016 3:20:58 AM Arterial Blood Methemoglobin 0.2 Arterial Blood pCO2 (Temp correct) 42.0 Arterial Blood pH (Temp corrected) 7.315 L Arterial Blood pO2 (Temp corrected) 92.9 Blood Gas A-a O2 Differential 107.8 H Blood Gas Actual Respiration Rate 18 Blood Gas Low PEEP Setting 5.0 Blood Gas Modality VENT - AC Blood Gas Notified Time 08/09/2016 3:31:44 AM Blood Gas Notified Whom MA Blood Gas Respiration Rate 16.0 Blood Gas Specimen Source Blood arterial Blood Gas Temperature 37.0 Blood Gas Tidal Volume 550.0 FiO2 35.0 Oxyhemoglobin Percent 96.6 Total Hemoglobin 9.9 L Test 08/09/16 05:30 08/09/16 08:16 08/09/16 09:10 Anion Gap 17 H Band Neutrophils % 3.0 Blood Urea Nitrogen 55 H Calcium Level 10.1 Carbon Dioxide Level 21 Chloride Level 109 Clumped Platelets RARE Creatinine 2.94 H Glucose Level 158 Hematocrit 25.6 L Hemoglobin 7.9 L Lymphocytes # 0.4 L Lymphocytes % 3.0 L Magnesium Level 2.6 H Mean Corpuscular Hemoglobin 36.2 H Mean Corpuscular Hemoglobin Concent 30.9 L Mean Corpuscular Volume 117.4 H Mean Platelet Volume 10.4 Monocytes # 0.9 Monocytes % 7.0 Neutrophils # 10.7 H Neutrophils % 87.0 H Phosphorus Level 2.9 Platelet Count 161 # Potassium Level 3.1 L Red Blood Count 2.18 L Red Cell Distribution Width 16.0 H Sodium Level 144 White Blood Count 12.3 H Bedside Glucose 165 INR International Normalized Ratio 2.16 Prothrombin Time 24.3 H Prothrombin Time Ratio 1.9 Medications Medications Current Medications Cholecalciferol (Vitamin D) 2,000 unit DAILY GTB ; Start 08/09/16 at 09:00 Famotidine (Pepcid) 20 mg DAILY GTB ; Start 08/09/16 at 09:00 Fluticasone Propionate (Flonase 0.05% Nasal) 1 spray DAILY NASAL ; Start at 09:00 Insulin Glargine (Lantus) 8 unit QHS SC ; Start 08/08/16 at 21:00 Multivit/Ca Carb/ B Cmplx/FA/Prenat (Magui-Cedric) 1 tab DAILY GTB ; Start at 09:00 Ondansetron HCl (Zofran (Ped)) 4 mg Q6H PRN GTB NAUSEA AND/OR VOMITING; Start 08/08/16 at 13:00 Paroxetine HCl (Paxil) 20 mg DAILY GTB ; Start 08/09/16 at 09:00 Senna (Senokot) 2 tab hs GTB ; Start 08/08/16 at 21:00 Warfarin Sodium (Coumadin) 4 mg DAILY@17 GTB ; Start 08/09/16 at 17:00 Miscellaneous Information 650 mg Q4 GTB ; Start 08/08/16 at 13:00; Status UNV Ascorbic Acid (Vitamin C) 250 mg DAILY GTB ; Start 08/09/16 at 09:00 Bisacodyl (Dulcolax Supp) 10 mg DAILY PRN [place] CONSTIPATION; Start 08/08/16 at 13 :00 Bumetanide (Bumex) 2 mg DAILY@06 PRN GTB EDEMA; Start 08/08/16 at 13:00 Atorvastatin Calcium 20 mg 20 mg DAILY@21 PO ; Start 08/09/16 at 21:00 Meropenem (Merrem 500 Mg/ 100 ml (Pmx)) 100 ml @ 200 mls/hr Q24H IVPB Last administered on 08/08/16 21:25; Admin Dose 200 MLS/HR; Start 08/08/16 at 21:00 Miscellaneous Information 1 ea NOTE XX ; Start 08/08/16 at 21:00 Glucose (Glutose) 15 gm Q15M PRN PO DECREASED GLUCOSE; Start 08/08/16 at 21:00 Glucose (Glutose) 22.5 gm Q15M PRN PO DECREASED GLUCOSE; Start 08/08/16 at 21: 00 Dextrose (D50w Syringe) 25 ml Q15M PRN IV DECREASED GLUCOSE; Start 08/08/16 at 21:00 Dextrose (D50w Syringe) 50 ml Q15M PRN IV DECREASED GLUCOSE; Start 08/08/16 at 21:00 Glucagon (Glucagen) 1 mg Q15M PRN IM DECREASED GLUCOSE; Start 08/08/16 at 21:00 Glucose (Glutose) 15 gm Q15M PRN BUCCAL DECREASED GLUCOSE; Start 08/08/16 at 21 :00 Insulin Aspart NOVOLOG *MILD* ALGORI... Q4 SC Last administered on 08/09/16 09 :56; Admin Dose 1 UNIT; Start 08/09/16 at 09:00 Vancomycin HCl (Vancocin) 250 ml @ 125 mls/hr ONCE ONCE IVPB ; Start 08/09/16 at 09:00; Stop 08/09/16 at 10:59 GELY FU Aug 09, 2016 10:15
[2016-08-09] MEDS: MULTIVIT/CA CARB/B CMPLX/FA TAB GTB SCH ×2 (11:50→15:08)
[2016-08-09] MEDS: FAMOTIDINE 20 MG TAB GTB SCH ×2 (11:50→15:09)
--- NOTE | 2016-08-09 14:34 | PN ---
DATE: 08/09/2016 SUBJECTIVE: No acute changes overnight. The patient is awake, noncommunicative, lying comfortably in bed. He is afebrile. OBJECTIVE: VITAL SIGNS: Temperature 98.1, pulse 90, respirations 23, blood pressure 126/61, satura tion 100 on 30 FIO2. WBC 12.3, H and H 7.9 and 25.6, platelets 161, neutrophils 87. MICROBIOLOGY: Blood cultures preliminary negative. DIAGNOSTICS: CT of the chest revealed nearly complete atelectasis of the left lung. Questionable m ucous plug versus neoplasm. Also, consolidation with volume loss to the right upper lobe and to the posterior and right lower lobe, mediastinal adenopathy, cholelithiasis, osteosclerosis of the spin e. INDWELLINGS: Trach, PEG, right chest Perm-A-Cath. ANTIMICROBIALS: The patient is on: 1. IV vancomycin. 2. Meropenem. PHYSICAL EXAMINATION: GENERAL: This is a morbidly obese, elderly white man who is lying comfortably in bed. HEENT: Head atraumatic, normocephalic. Sclerae anicteric. Buccal mucosa dry. NECK: Obese, tracheostomy present. CHEST: Rise symmetrical. Breath sounds diminished to bases. HEART: S1, S2. ABDOMEN: Soft, bowel tones present. EXTREMITIES: Without cyanosis. Bilateral trace edema. SKIN: With multiple chronic wounds. ASSESSMENT: 1. Severe sepsis status post shock. 2. Healthcare-associated pneumonia. 3. Acute on chronic respiratory failure. 4. Pxyij-oe-stbebxv encephalopathy. 5. End-stage renal disease. 6. Multiple decubitus. 7. Diabetes. PLAN: The patient remains hemodynamically stable. He is being seen by multiple consultants. Cultu res are pending. Continue present care, antibiotics, local wound care. Dictated By: SLAVA CHILDRESS BILL ADJUSTER for MEKA MATOS/NTS Conf#: [id number] DID#: [id number]
[2016-08-09] MEDS: FLUTICASONE 0.05% 16 GM NAS SPRAY NASAL SCH (15:09)
[2016-08-09] MEDS: ASCORBIC ACID 250 MG TAB GTB SCH (15:09)
[2016-08-09] MEDS: CHOLECALCIFEROL 2,000 UNIT CAP GTB SCH (15:09)
[2016-08-09] MEDS: WARFARIN 2 MG TAB GTB SCH (17:20)
[2016-08-09] MEDS: PAROXETINE 20 MG TAB GTB SCH (17:20)
[2016-08-09] MEDS: EPOETIN 10000 UNITS/1 ML INJ (ESRD) SC SCH (18:05)
[2016-08-09] MEDS ORDERED: LIDOCAINE 1% (MDV) 20 ML INJ ONE (19:46)
[2016-08-09] MEDS: SENNA TAB GTB SCH (20:45)
[2016-08-09] MEDS: ATORVASTATIN 20 MG TAB PO SCH (20:45)
[2016-08-09] MEDS: MEROPENEM 500 MG/100 ML (PMX) 100 ML IVPB SCH (20:45)
[2016-08-09] MEDS: COLLAGENASE 30 GM TUBE TOP SCH (20:46)
--- NOTE | 2016-08-09 20:56 | OPR ---
DATE OF OPERATION: PREOPERATIVE DIAGNOSIS: Respiratory failure. POSTOPERATIVE DIAGNOSIS: Respiratory failure. OPERATION PERFORMED: Left femoral central line placement. SURGEON: Octavio Gillette MD ANESTHESIA: Local. CONSENT: Risks, benefits, complications, alternative therapies explained to the patient and the [facility] nathan; consent obtained. OPERATIVE TECHNIQUE IN DETAIL: The patient was placed in supine position, prepped and draped in the usual sterile fashion. Lidocaine 1% was used throughout the operation for local anesthesia. Acces s was gained in the left femoral vein. Guidewire was advanced through without any difficulty. Subc utaneous tissues were dilated. Central line advanced over the guidewire. Guidewire secured to the skin using silk sutures. All ports of the catheter were aspirated and injected using saline solutio n. Patient tolerated procedure well. Dictated By: OCTAVIO MOCTEZUMA/ODALYS Conf#: [id number] DID#: [id number]
[2016-08-09] MEDS: INSULIN GLARGINE [LANtus] 3 ML PEN SC SCH (22:03)
[2016-08-10] VITALS (67 sets, daily range): BP systolic 73–140; BP diastolic 45–89; PULSE 74–99; RESP 17–30
[2016-08-10] MEDS: INSULIN ASPART [NOVOLOG] 3 ML PEN SC SCH ×6 (01:06→20:53)
[2016-08-10 04:37] LABS: ADD SCAN DIFF NO
[2016-08-10 04:50] LABS: BASOPHILS % 0.2 % (0.0-2.0); EOSINOPHILS # 0.1 10^3/ul (0.0-0.5); EOSINOPHILS % 0.8 % (0.0-7.0); HEMATOCRIT 26.5 % (42.0-52.0); LYMPHOCYTES % 9.8 % (15.0-51.0); MEAN CORPUSCULAR HEMOGLOBIN 34.8 pg (29.0-33.0); MEAN CORPUSCULAR HGB CONC 30.2 g/dl (32.0-37.0); MEAN CORPUSCULAR VOLUME 115.2 fl (82.0-101.0); MEAN PLATELET VOLUME 9.9 fl (7.4-10.4); MONOCYTE # 0.5 10^3/ul (0.3-0.9); MONOCYTES % 5.5 % (0.0-11.0); NEUTROPHILS % 82.7 % (39.0-77.0); NUCLEATED RED BLOOD CELLS% 0.2 /100WBC (0.0-0.0); PLATELET COUNT 213 10^3/UL (140-415); RED CELL DISTRIBUTION WIDTH 15.9 % (11.5-14.5); WHITE BLOOD COUNT 9.7 10^3/ul (4.8-10.8)
[2016-08-10 04:54] LABS: INR 3.37; PROTIME 34.6 Sec (12.2-14.2); PT RATIO 2.7
[2016-08-10 05:00] LABS: ALBUMIN 2.5 g/dl (3.3-4.9)
[2016-08-10 05:02] LABS: CREATININE 2.52 mg/dl (0.61-1.24); MAGNESIUM 2.5 mg/dl (1.7-2.5); PHOSPHORUS 2.5 mg/dl (2.5-4.9)
[2016-08-10 05:03] LABS: ALBUMIN/GLOBULIN RATIO 0.64; TOTAL PROTEIN 6.4 g/dl (6.1-8.1)
[2016-08-10 05:06] LABS: POTASSIUM 2.9 mmol/L (3.5-5.1)
[2016-08-10] MEDS ORDERED: POTASSIUM CHLORIDE (SR) 20 MEQ TAB PO ONE (05:41)
[2016-08-10] MEDS ORDERED: POTASSIUM CHLORIDE 20 MEQ POWDER FOR ORAL SOLN GTB ONE (06:00)
--- NOTE | 2016-08-10 08:03 | CONS ---
Date/Time of Note Date/Time of Note DATE: 08/10/16 TIME: 08:00 Assessment/Plan Assessment/Plan Additional Assessment/Plan Ventilator settings are AC of 16, tidal volume 550, PEEP of 5, 30% FiO2. Next Assessment recommendations; 1. Patient admitted for severe pneumonia involving the left lung. Possibly underlying mucous plug with atelectasis. 2. Chronic respiratory failure on account of extensive CVA. 3. Status post tracheostomy and G-tube placement. 4. End-stage renal disease, on hemodialysis. 5. Diabetes. 6. History of sacral decubitus ulcer. 7. Anemia. 8. Hypertension. Continue current treatment. Awaiting chest x-ray from today. If there is persistent atelectasis patient will need to have a bronchoscopy performed. Consultation Date/Type/Reason Admit Date/Time Aug 08, 2016 at 11:44 Initial Consult Date 08/09/16 Type of Consultation: Pulmonary/critical care Referring Provider: JENNIFER TAFOYA DO 24 HR Interval Summary Free Text/Dictation Patient condition remains critical. Remains ventilator dependent due to chronic respiratory failure due to underlying severe CVA. Has remained hemodynamically stable. General exam; elderly male, morbidly obese, unresponsive. Awake. Exam/Review of Systems Vital Signs Vitals Vital Signs Date Time Temp Pulse Resp B/P Pulse Ox O2 Delivery O2 Flow Rate FiO2 08/10/16 07:38 94 22 97 30 08/10/16 06:00 110/61 Mechanical Ventilator 08/10/16 04:00 100.0 08/09/16 08:00 Intake and Output 08/09/16 08/09/16 08/10/16 15:00 23:00 07:00 Intake Total 500 ml 210 ml 420 ml Output Total 6500 ml Balance -6000 ml 210 ml 420 ml Exam HEENT exam; supple neck, JVD difficult to see because of short neck. Tracheostomy in place. Midline trachea. No thyromegaly. No neck masses. No lymphadenopathy. Chest examination; diminished breath sound bilaterally. S1-S2 audible, no murmurs. Regular rhythm. Abdomen examination; protuberant, G-tube in place. Bowel is audible. Extremity examination; trace peripheral edema. There is a well-healed right thigh scar. Pulses 1+ bilaterally. Next SUPERVISOR RESIDENTIAL examination; patient remains awake but unresponsive. Results Result Diagram: 3/17/17 0400 3/17/17 0400 Results 24 hrs Laboratory Tests Test 08/09/16 08:16 08/09/16 09:10 08/09/16 15:16 08/09/16 17:18 Bedside Glucose 165 146 142 INR International Normalized Ratio 2.16 Prothrombin Time 24.3 H Prothrombin Time Ratio 1.9 Test 08/09/16 22:01 08/10/16 01:05 08/10/16 04:00 08/10/16 05:10 Bedside Glucose 140 141 166 Alanine Aminotransferase (ALT/SGPT) 20 Albumin 2.5 L Albumin/Globulin Ratio 0.64 Alkaline Phosphatase 142 H Anion Gap 16 Aspartate Amino Transf (AST/SGOT) 20 Basophils # 0.0 Basophils % 0.2 Blood Urea Nitrogen 41 #H Calcium Level 10.0 Carbon Dioxide Level 24 Chloride Level 110 Creatinine 2.52 H Digoxin Level < 0.4 L Direct Bilirubin 0.00 Eosinophils # 0.1 Eosinophils % 0.8 Globulin 3.90 H Glucose Level 153 Hematocrit 26.5 L Hemoglobin 8.0 L INR International Normalized Ratio 3.37 Indirect Bilirubin 0.0 Lymphocytes # 1.0 Lymphocytes % 9.8 L Magnesium Level 2.5 Mean Corpuscular Hemoglobin 34.8 H Mean Corpuscular Hemoglobin Concent 30.2 L Mean Corpuscular Volume 115.2 H Mean Platelet Volume 9.9 Monocytes # 0.5 Monocytes % 5.5 Neutrophils # 8.0 H Neutrophils % 82.7 H Nucleated Red Blood Cells # 0.0 Nucleated Red Blood Cells % 0.2 H Phosphorus Level 2.5 Platelet Count 213 # Potassium Level 2.9 *L Prothrombin Time 34.6 #H Prothrombin Time Ratio 2.7 Red Blood Count 2.30 L Red Cell Distribution Width 15.9 H Sodium Level 147 H Total Bilirubin 0.0 L Total Protein 6.4 White Blood Count 9.7 # Medications Medications Current Medications Cholecalciferol (Vitamin D) 2,000 unit DAILY GTB Last administered on 15:09; Admin Dose 2,000 UNIT; Start 08/09/16 at 09:00 Famotidine (Pepcid) 20 mg DAILY GTB Last administered on 08/09/16 15:09; Admin Dose 20 MG; Start 08/09/16 at 09:00 Fluticasone Propionate (Flonase 0.05% Nasal) 1 spray DAILY NASAL Last administered on 08/09/16 15:09; Admin Dose 1 SPRAY; Start 08/09/16 at 09:00 Insulin Glargine (Lantus) 8 unit QHS SC Last administered on 08/09/16 22:03; Admin Dose 8 UNIT; Start 08/08/16 at 21:00 Multivit/Ca Carb/ B Cmplx/FA/Prenat (Magui-Cedric) 1 tab DAILY GTB Last administered on 08/09/16 15:08; Admin Dose 1 TAB; Start 08/09/16 at 09:00 Ondansetron HCl (Zofran (Ped)) 4 mg Q6H PRN GTB NAUSEA AND/OR VOMITING; Start 08/08/16 at 13:00 Paroxetine HCl (Paxil) 20 mg DAILY GTB Last administered on 08/09/16 17:20; Admin Dose 20 MG; Start 08/09/16 at 09:00 Senna (Senokot) 2 tab hs GTB Last administered on 08/09/16 20:45; Admin Dose 2 TAB; Start 08/08/16 at 21:00 Warfarin Sodium (Coumadin) 4 mg DAILY@17 GTB Last administered on 08/09/16 17: 20; Admin Dose 4 MG; Start 08/09/16 at 17:00 Acetaminophen (Tylenol Liquid) 650 mg Q4H PRN GTB PAIN AND OR ELEVATED TEMP; Start 08/08/16 at 12:41 Ascorbic Acid (Vitamin C) 250 mg DAILY GTB Last administered on 08/09/16 15:09 ; Admin Dose 250 MG; Start 08/09/16 at 09:00 Bisacodyl (Dulcolax Supp) 10 mg DAILY PRN [place] CONSTIPATION; Start 08/08/16 at 13 :00 Bumetanide (Bumex) 2 mg DAILY@06 PRN GTB EDEMA; Start 08/08/16 at 13:00 Atorvastatin Calcium 20 mg 20 mg DAILY@21 PO Last administered on 08/09/16 20: 45; Admin Dose 20 MG; Start 08/09/16 at 21:00 Meropenem (Merrem 500 Mg/ 100 ml (Pmx)) 100 ml @ 200 mls/hr Q24H IVPB Last administered on 08/09/16 20:45; Admin Dose 200 MLS/HR; Start 08/08/16 at 21:00 Miscellaneous Information 1 ea NOTE XX ; Start 08/08/16 at 21:00 Glucose (Glutose) 15 gm Q15M PRN PO DECREASED GLUCOSE; Start 08/08/16 at 21:00 Glucose (Glutose) 22.5 gm Q15M PRN PO DECREASED GLUCOSE; Start 08/08/16 at 21: 00 Dextrose (D50w Syringe) 25 ml Q15M PRN IV DECREASED GLUCOSE; Start 08/08/16 at 21:00 Dextrose (D50w Syringe) 50 ml Q15M PRN IV DECREASED GLUCOSE; Start 08/08/16 at 21:00 Glucagon (Glucagen) 1 mg Q15M PRN IM DECREASED GLUCOSE; Start 08/08/16 at 21:00 Glucose (Glutose) 15 gm Q15M PRN BUCCAL DECREASED GLUCOSE; Start 08/08/16 at 21 :00 Insulin Aspart (Novolog Insulin Pen) NOVOLOG *MILD* ALGORI... Q4 SC Last administered on 08/10/16t 05:12; Admin Dose 1 UNIT; Start 08/09/16 at 09:00 Collagenase (Santyl) 1 applic DAILY TOP ; Start 08/09/16 at 21:00 GELY FU Aug 10, 2016 08:03
--- NOTE | 2016-08-10 08:37 | PN ---
DATE: 08/10/2016 SUBJECTIVE: The patient is critical, but stable. Currently off pressor support. The patient is on hemodialysis. No other acute events noted. No hemoptysis, hematemesis or hematochezia. OBJECTIVE: VITAL SIGNS: Blood pressure 110/61, respirations 22, pulse 82, temperature 100. HEENT: Head is normocephalic. NECK: Shows a trach. HEART: Regular rate. LUNGS: Showed diminished breath sounds at the base. ABDOMEN: Soft, nontender to palpation. No rebound or guarding. EXTREMITIES: Negative for clubbing or cyanosis. No edema. DERMATOLOGIC: No rashes. MUSCULOSKELETAL: Have no joint effusion. NEUROLOGIC: No change in exam. MEDICATIONS: The patient's medications have been reviewed. LABORATORY DATA: Shows sodium 147, potassium 3.9, BUN 41, creatinine 2.52, white count 9.7, hemoglo bin 8.0, hematocrit 26.5, platelet count 213. ASSESSMENT AND PLAN: 1. Sepsis, status post shock. Etiology is secondary to healthcare-associated pneumonia, urinary tr act infection and decubitus wound. The patient is currently off pressor support. Plan at this poin t is to continue antibiotic therapy. Cultures have been reviewed, negative to date. Will follow up with infectious disease for further recommendations. 2. Ventilator-dependent respiratory failure. Vent settings have been reviewed. ABG has been revie wed. Continue to monitor. 3. Hypokalemia. Replete potassium chloride, 40 mEq. 4. Hypertension. The patient is currently hypotensive. Will continue to monitor. Hold blood pres sure medications. 5. End-stage renal disease. Plan for hemodialysis today for 3 hours on a 3K bath, calcium 2.5. 6. Acute on chronic encephalopathy. Etiology is toxic metabolic. Will continue to monitor. The p atient's mental status appears to be returning back to baseline. 7. Anemia of chronic disease. Continue to monitor hemoglobin and hematocrit levels. Continue Epog en. 8. Mineral bone disorder. Continue to monitor calcium and phosphorus levels. No need for phosphat e binders. 9. Diabetes. Continue Lantus, Accu-Cheks and insulin sliding scale. 10. Dysphagia. Status post PEG. Continue tube feedings. 11. Decubitus wound. Continue offloading. Continue wound care. Consider general surgical consult . 12. History of arrhythmia and atrial fibrillation. Currently rate controlled. Continue Coumadin. INR is supratherapeutic. Will defer to cardiology for management of anticoagulation. 13. Gastrointestinal and deep venous thrombosis prophylaxis. Continue proton pump inhibitor and Co umadin. Please note, I spent over 40 minutes of critical care time with this patient. Dictated By: JENNIFER TAFOYA DO NR/NTS Conf#: [id number] DID#: [id number]
--- NOTE | 2016-08-10 09:09 | RADRPT ---
PROCEDURE: Chest 1 views. CLINICAL INDICATION: Shortness of breath TECHNIQUE: AP views of the chest was obtained. COMPARISON: August 08, 2016 FINDINGS: The heart is large. Tracheostomy tube is stable and appears in grossly appropriate location. Right- sided dialysis catheter is unchanged. Central pulmonary vascular congestion and interstitial promin ence is seen in both lungs. Improved aeration of the left upper lobe is observed. Retrocardiac opa city continues to be seen. Patchy perihilar infiltrates in the right lung are stable. The osseous structures are unchanged. IMPRESSION: Cardiomegaly . Interval improvement in the aeration of the left upper lobe. Continued central pulmonary vascular congestion and interstitial prominence in both lungs. Stable retrocardiac opacity that may reflect left lower lobe atelectasis or infiltrate combined with small pleural effusion. Stable mild perihilar infiltrates throughout the right lung. RPTAT: AA .Kwaku Aguayo MD, Date Time Electronically viewed and signed by .Kwaku Aguayo MD, on 08/10/2016 09:09 .P/
[2016-08-10] MEDS: FLUTICASONE 0.05% 16 GM NAS SPRAY NASAL SCH (10:09)
[2016-08-10] MEDS: CHOLECALCIFEROL 2,000 UNIT CAP GTB SCH (10:14)
[2016-08-10] MEDS: MULTIVIT/CA CARB/B CMPLX/FA TAB GTB SCH (10:14)
[2016-08-10] MEDS: PAROXETINE 20 MG TAB GTB SCH (10:14)
[2016-08-10] MEDS: ASCORBIC ACID 250 MG TAB GTB SCH (10:14)
--- NOTE | 2016-08-10 14:15 | CONS ---
Date/Time of Note Date/Time of Note DATE: 08/10/16 TIME: 14:14 Assessment/Plan Assessment/Plan Chief Complaint/Hosp Course SUBJECTIVE: No acute changes overnight. The patient is awake, noncommunicative , lying comfortably in bed. He is afebrile. MICROBIOLOGY: Blood cultures preliminary negative. INDWELLINGS: Trach, PEG, right chest Perm-A-Cath. ANTIMICROBIALS: The patient is on: 1. IV vancomycin. 2. Meropenem. PHYSICAL EXAMINATION: GENERAL: This is a morbidly obese, elderly white man who is lying comfortably in bed. HEENT: Head atraumatic, normocephalic. Sclerae anicteric. Buccal mucosa dry. NECK: Obese, tracheostomy present. CHEST: Rise symmetrical. Breath sounds diminished to bases. HEART: S1, S2. ABDOMEN: Soft, bowel tones present. EXTREMITIES: Without cyanosis. Bilateral trace edema. SKIN: With multiple chronic wounds. ASSESSMENT: 1. Severe sepsis status post shock. 2. Healthcare-associated pneumonia. 3. Acute on chronic respiratory failure. 4. [id number]-[id number] encephalopathy. 5. End-stage renal disease. 6. Multiple decubitus. 7. Diabetes. PLAN: The patient remains hemodynamically stable. He is being seen by multiple consultants. Cultures are pending. Continue present care, antibiotics , local wound care. staff Problems: Consultation Date/Type/Reason Admit Date/Time Aug 08, 2016 at 11:44 Initial Consult Date 08/09/16 Type of Consultation: ID Referring Provider: JENNIFER TAFOYA DO Exam/Review of Systems Vital Signs Vitals Vital Signs Date Time Temp Pulse Resp B/P Pulse Ox O2 Delivery O2 Flow Rate FiO2 08/10/16 11:35 92 19 100 30 08/10/16 08:15 91/71 Mechanical Ventilator 08/10/16 07:30 98.0 08/09/16 08:00 Intake and Output 08/09/16 08/09/16 08/10/16 15:00 23:00 07:00 Intake Total 500 ml 210 ml 420 ml Output Total 6500 ml Balance -6000 ml 210 ml 420 ml Results Result Diagram: 08/10/16 0400 08/10/16 0400 Results 24 hrs Laboratory Tests Test 08/09/16 15:16 08/09/16 17:18 08/09/16 22:01 08/10/16 01:05 Bedside Glucose 146 142 140 141 Test 08/10/16 04:00 08/10/16 05:10 08/10/16 10:07 08/10/16 13:23 Alanine Aminotransferase (ALT/SGPT) 20 Albumin 2.5 L Albumin/Globulin Ratio 0.64 Alkaline Phosphatase 142 H Anion Gap 16 Aspartate Amino Transf (AST/SGOT) 20 Basophils # 0.0 Basophils % 0.2 Blood Urea Nitrogen 41 #H Calcium Level 10.0 Carbon Dioxide Level 24 Chloride Level 110 Creatinine 2.52 H Digoxin Level < 0.4 L Direct Bilirubin 0.00 Eosinophils # 0.1 Eosinophils % 0.8 Globulin 3.90 H Glucose Level 153 Hematocrit 26.5 L Hemoglobin 8.0 L INR International Normalized Ratio 3.37 Indirect Bilirubin 0.0 Lymphocytes # 1.0 Lymphocytes % 9.8 L Magnesium Level 2.5 Mean Corpuscular Hemoglobin 34.8 H Mean Corpuscular Hemoglobin Concent 30.2 L Mean Corpuscular Volume 115.2 H Mean Platelet Volume 9.9 Monocytes # 0.5 Monocytes % 5.5 Neutrophils # 8.0 H Neutrophils % 82.7 H Nucleated Red Blood Cells # 0.0 Nucleated Red Blood Cells % 0.2 H Phosphorus Level 2.5 Platelet Count 213 # Potassium Level 2.9 *L Prothrombin Time 34.6 #H Prothrombin Time Ratio 2.7 Red Blood Count 2.30 L Red Cell Distribution Width 15.9 H Sodium Level 147 H Total Bilirubin 0.0 L Total Protein 6.4 White Blood Count 9.7 # Bedside Glucose 166 179 181 Medications Medications Current Medications Cholecalciferol (Vitamin D) 2,000 unit DAILY GTB Last administered on 10:14; Admin Dose 2,000 UNIT; Start 08/09/16 at 09:00 Famotidine (Pepcid) 20 mg DAILY GTB Last administered on 08/09/16 15:09; Admin Dose 20 MG; Start 08/09/16 at 09:00 Fluticasone Propionate (Flonase 0.05% Nasal) 1 spray DAILY NASAL Last administered on 08/10/16 10:09; Admin Dose 1 SPRAY; Start 08/09/16 at 09:00 Insulin Glargine (Lantus) 8 unit QHS SC Last administered on 08/09/16 22:03; Admin Dose 8 UNIT; Start 08/08/16 at 21:00 Multivit/Ca Carb/ B Cmplx/FA/Prenat (Magui-Cedric) 1 tab DAILY GTB Last administered on 08/10/16 10:14; Admin Dose 1 TAB; Start 08/09/16 at 09:00 Ondansetron HCl (Zofran (Ped)) 4 mg Q6H PRN GTB NAUSEA AND/OR VOMITING; Start 08/08/16 at 13:00 Paroxetine HCl (Paxil) 20 mg DAILY GTB Last administered on 08/10/16 10:14; Admin Dose 20 MG; Start 08/09/16 at 09:00 Senna (Senokot) 2 tab hs GTB Last administered on 08/09/16 20:45; Admin Dose 2 TAB; Start 08/08/16 at 21:00 Warfarin Sodium (Coumadin) 4 mg DAILY@17 GTB Last administered on 08/09/16 17: 20; Admin Dose 4 MG; Start 08/09/16 at 17:00 Acetaminophen (Tylenol Liquid) 650 mg Q4H PRN GTB PAIN AND OR ELEVATED TEMP; Start 08/08/16 at 12:41 Ascorbic Acid (Vitamin C) 250 mg DAILY GTB Last administered on 08/10/16 10:14 ; Admin Dose 250 MG; Start 08/09/16 at 09:00 Bisacodyl (Dulcolax Supp) 10 mg DAILY PRN [place] CONSTIPATION; Start 08/08/16 at 13 :00 Bumetanide (Bumex) 2 mg DAILY@06 PRN GTB EDEMA; Start 08/08/16 at 13:00 Atorvastatin Calcium 20 mg 20 mg DAILY@21 PO Last administered on 08/09/16 20: 45; Admin Dose 20 MG; Start 08/09/16 at 21:00 Meropenem (Merrem 500 Mg/ 100 ml (Pmx)) 100 ml @ 200 mls/hr Q24H IVPB Last administered on 08/09/16 20:45; Admin Dose 200 MLS/HR; Start 08/08/16 at 21:00 Miscellaneous Information 1 ea NOTE XX ; Start 08/08/16 at 21:00 Glucose (Glutose) 15 gm Q15M PRN PO DECREASED GLUCOSE; Start 08/08/16 at 21:00 Glucose (Glutose) 22.5 gm Q15M PRN PO DECREASED GLUCOSE; Start 08/08/16 at 21: 00 Dextrose (D50w Syringe) 25 ml Q15M PRN IV DECREASED GLUCOSE; Start 08/08/16 at 21:00 Dextrose (D50w Syringe) 50 ml Q15M PRN IV DECREASED GLUCOSE; Start 08/08/16 at 21:00 Glucagon (Glucagen) 1 mg Q15M PRN IM DECREASED GLUCOSE; Start 08/08/16 at 21:00 Glucose (Glutose) 15 gm Q15M PRN BUCCAL DECREASED GLUCOSE; Start 08/08/16 at 21 :00 Insulin Aspart (Novolog Insulin Pen) NOVOLOG *MILD* ALGORI... Q4 SC Last administered on 08/10/16t 13:25; Admin Dose 2 UNIT; Start 08/09/16 at 09:00 Collagenase (Santyl) 1 applic DAILY TOP ; Start 08/09/16 at 21:00 Miscellaneous Information (*Rx Drug Level Order Reminder*) VANCO RANDOM LEVEL... ONCE ONCE XX ; Start 08/11/16 at 05:00; Stop 08/11/16 at 05:01 SLAVA CHILDRESS NP Aug 10, 2016 14:15
--- NOTE | 2016-08-10 17:15 | RADRPT ---
Echocardiogram Report Patient Name: CLARITA RODARTE Gender: Male Date: 1950 Study Date: 09-Aug-2016 Road Freight Conductor: Ezequiel Christina RDCS Location: 119 Ref. Physician: THOM CHILDS Quality: Technically Difficult Study Procedures: Transthoracic echocardiogram with complete 2D, M-Mode, and doppler examination. Indications: Sepsis. 2D/M Mode Doppler Measurement Value Normal Ranges Measurement Value Normal Ranges LVIDd 2D 4.2 3.5 - 5.6 cm WILBERT Vmax 1.4 cm2 LVIDs 2D 2.3 2.1 - 4.1 cm WILBERT VTI 0.9 cm2 LVPWd 2D 1.0 0.6 - 1.1 cm LVOT Mean Wan 0.6 m/sec IVSd 2D 1.0 0.6 - 1.1 cm LVOT Mean PG 1.5 mmHg AoR Diam 2D 3.1 2.0 - 3.7 cm LVOT Peak Wan 0.8 m/sec EDV 2D 77.5 cm3 LVOT Peak PG 2.5 mmHg ESV 2D 12.1 cm3 LVOT VTI 17.3 cm LA Dimen 2D 4.6 2.3 - 4.0 cm TR Peak Wan 2.9 m/sec LVOT Diam 2.3 cm TR Peak PG 33.3 mmHg RVSP 41.0 mmHg Findings Left Ventricle: Hyperdynamic left ventricular systolic function. Normal left ventricular cavity size. Mild concentric left ventricular hypertrophy. Ejection fraction is visually estimated at 70 %. Resting left ventricular outflow tract velocity 2.33 m/sec. Resting left ventricular outflow tract gradient 22.0 mmHg. Velocity3.72 m/sec. Max PG55.00 mmHg. Right Ventricle: Normal right ventricular size. Normal right ventricular systolic function. Left Atrium: There is mild enlargement of left atrium. Right Atrium: The right atrium is normal in size. Mitral Valve: Normal appearance of the mitral valve. Mild mitral annular calcification. Trace mitral regurgitation. Aortic Valve: Aortic valve not well visualized. Moderate aortic stenosis. Aortic valve area 1.4 cm2. Aortic cusps appear mildly calcified. No aortic regurgitation. Tricuspid Valve: Normal appearance of the tricuspid valve. Estimated peak PA systolic pressure 41 mmHg. There is mild tricuspid regurgitation. Pulmonic Valve: Pulmonic valve not well visualized. Pericardium: Normal pericardium with no significant pericardial effusion. Aorta: Normal aortic root. IVC: Normal size and normal respiratory collapse consistent with normal right atrial pressure. Conclusions 1.Hyperdynamic left ventricular systolic function. Normal left ventricular cavity size. Mild concentric left ventricular hypertrophy. Ejection fraction is visually estimated at 70 %. Resting left ventricular outflow tract velocity 2.33 m/sec. Resting left ventricular outflow tract gradient 22.0 mmHg. Velocity3.72 m/sec. Max PG55.00 mmHg. 2.There is mild enlargement of left atrium. 3.Normal appearance of the mitral valve. Mild mitral annular calcification. Trace mitral regurgitation. 4.Aortic valve not well visualized. Moderate aortic stenosis. Aortic valve area 1.4 cm2. Aortic cusps appear mildly calcified. No aortic regurgitation. 5.Normal appearance of the tricuspid valve. Estimated peak PA systolic pressure 41 mmHg. There is mild tricuspid regurgitation. 6.Normal size and normal respiratory collapse consistent with normal right atrial pressure. Electronically Signed By: Thom Childs 10-Aug-2016 17:14:47 -0700 Patient Name: CLARITA RODARTE Study Date: 09-Aug-2016 [id number]
[2016-08-10] MEDS: EPOETIN 10000 UNITS/1 ML INJ (ESRD) SC SCH (17:57)
--- NOTE | 2016-08-10 18:31 | PN ---
DATE: 08/10/2016 CARDIOLOGY FOLLOWUP SUBJECTIVE: Discussed with staff. Rhythm strip was reviewed. The patient remains in atrial fibril lation with occasional PVCs. No episodes of sustained VT noted. The patient is nonverbal, tracheos klarissa on the vent. Blood pressure has been improved and off of pressors, but on the low side. The p atient also had dialysis done already as well. MEDICATIONS: Reviewed as per medication reconciliation, personally reviewed. PHYSICAL EXAMINATION: VITAL SIGNS: Temperature 98, temperature max is 100, heart rate of 85, blood pressure 91/71, respir atory rate of 24, saturating 100% on 30% oxygen. HEENT: Normocephalic, atraumatic. Obese gentleman. Pupils equal and round. NECK: Supple. Tracheostomy on the vent. CARDIOVASCULAR: Irregularly irregular, systolic murmur. PULMONARY: Anteriorly with no wheezes, mild rhonchi at the bases. GASTROINTESTINAL: Obese, soft, nontender. EXTREMITIES: Diffuse lower extremity edema. NEUROLOGIC: Eyes are open. Does not follow any commands. PSYCHIATRIC: Calm. DERMATOLOGIC: Multiple ecchymoses. LABORATORY DATA: WBC of 9.7, hemoglobin 8.0, platelets of 213. Sodium 147, potassium 2.9, BUN of 4 1, creatinine 2.52, glucose 153. Albumin is 2.1. Digoxin level is less than 0.4. INR is 3.37, yes terday was 2.16. Chest x-ray done today shows improved aeration of the upper lobe. Echocardiogram was personally rev iewed. It was a technically difficult study. Ejection fraction appears to be normal at about 70%. There is some LV gradient noted as well as aortic valve gradient. Aortic valve was not well visual ized, but appeared to be calcified with probably moderate aortic stenosis. PA pressure was estimate d about 41 mmHg. ASSESSMENT AND PLAN: 1. Hypoxemic respiratory failure, status post tracheostomy, vent-dependent. 2. Status post septic shock, currently blood pressure has improved. 3. Renal failure, on dialysis. 4. Valvular heart disease with aortic stenosis. 5. Hypertension, currently hypotensive in shock. 6. Atrial fibrillation, chronic, on anticoagulation. 7. Severe anemia. 8. Electrolyte abnormalities, hypokalemia. 9. Dysphagia, status post percutaneous endoscopic gastrostomy placement. 10. Encephalopathy. 11. Decubitus wound. RECOMMENDATIONS: Antibiotic is managed as per ID recommendation. Respiratory care and pulmonary ca re and aggressive suctioning will be continued. Statin will be continued as tolerated. Coumadin is on hold today and being adjusted. We will continue the vent support. Respiratory care will be con tinued. Diabetic management as per Dr. Pereyra and associates. Heart rate currently under good con trol, we will continue. The extra digoxin will be given as needed at a very low dose to avoid digox in toxicity. We will continue with the ICU care. More than 39 minutes of critical care time was spent in the management of this patient excluding any procedures. Dictated By: THOM DURAN MD AV/NTS Conf#: [id number] DID#: [id number] CC: JENNIFER PEREYRA DO;*EndCC*
[2016-08-10] MEDS: MEROPENEM 500 MG/100 ML (PMX) 100 ML IVPB SCH (20:45)
[2016-08-10] MEDS: ATORVASTATIN 20 MG TAB PO SCH (20:45)
[2016-08-10] MEDS: SENNA TAB GTB SCH (20:45)
[2016-08-10] MEDS: INSULIN GLARGINE [LANtus] 3 ML PEN SC SCH (20:53)
[2016-08-11] VITALS (82 sets, daily range): BP systolic 76–122; BP diastolic 41–95; PULSE 65–111; RESP 15–29
[2016-08-11] MEDS: INSULIN ASPART [NOVOLOG] 3 ML PEN SC SCH ×6 (01:28→22:17)
[2016-08-11 05:04] LABS: INR 2.44; PROTIME 26.8 Sec (12.2-14.2); PT RATIO 2.1
[2016-08-11] MEDS: CHOLECALCIFEROL 2,000 UNIT CAP GTB SCH (09:14)
[2016-08-11] MEDS: ASCORBIC ACID 250 MG TAB GTB SCH (09:14)
[2016-08-11] MEDS: PAROXETINE 20 MG TAB GTB SCH (09:14)
[2016-08-11] MEDS: FAMOTIDINE 20 MG TAB GTB SCH (09:14)
[2016-08-11] MEDS: COLLAGENASE 30 GM TUBE TOP SCH (09:23)
[2016-08-11] MEDS: FLUTICASONE 0.05% 16 GM NAS SPRAY NASAL SCH (09:23)
--- NOTE | 2016-08-11 10:12 | CONS ---
Date/Time of Note Date/Time of Note DATE: 08/11/16 TIME: 10:07 Consult Date/Type/Reason Admit Date/Time Aug 08, 2016 at 11:44 Initial Consult Date 08/09/16 Type of Consultation: ID Ordering Provider: JENNIFER TAFOYA DO Subjective patient is a 66-year-old white male who was admitted yesterday transferred over from residential to ER for evaluation of hypoxemia upon evaluation a chest x-ray was done which is showing complete white out of the left lung. Possibly indicative of underlying extensive pneumonia versus mucus plugging.The patient is critical, but stable. Currently off pressor support. The patient is sp hemodialysis yesterday. No other acute events noted. No hemoptysis, hematemesis or hematochezia. OBJECTIVE: HEENT: Head is normocephalic. NECK: Shows a trach. HEART: Regular rate. LUNGS: Showed diminished breath sounds at the base. ABDOMEN: Soft, nontender to palpation. No rebound or guarding. EXTREMITIES: Negative for clubbing or cyanosis. No edema. DERMATOLOGIC: No rashes. MUSCULOSKELETAL: Have no joint effusion. NEUROLOGIC: No change in exam. MEDICATIONS: The patient's medications have been reviewed. Objective Vital Signs Date Time Temp Pulse Resp B/P Pulse Ox O2 Delivery O2 Flow Rate FiO2 08/11/16 08:00 99 16 95/67 100 08/11/16 07:45 98.9 Mechanical Ventilator 08/11/16 05:28 30 08/09/16 08:00 Intake and Output 08/10/16 08/10/16 08/11/16 15:00 23:00 07:00 Intake Total 1080 ml 470 ml 445 ml Output Total 5500 ml Balance -4420 ml 470 ml 445 ml Results/Medications Result Diagram: 08/10/16 0400 08/10/16 0400 Results 24 hrs Laboratory Tests Test 08/10/16 13:23 08/10/16 17:16 08/10/16 20:30 08/11/16 01:22 Bedside Glucose 181 182 215 209 Test 08/11/16 04:40 08/11/16 04:48 08/11/16 09:26 INR International Normalized Ratio 2.44 Prothrombin Time 26.8 #H Prothrombin Time Ratio 2.1 Random Vancomycin Level 10.1 Bedside Glucose 180 208 Medications Current Medications Cholecalciferol (Vitamin D) 2,000 unit DAILY GTB Last administered on 09:14; Admin Dose 2,000 UNIT; Start 08/09/16 at 09:00 Famotidine (Pepcid) 20 mg DAILY GTB Last administered on 08/11/16 09:14; Admin Dose 20 MG; Start 08/09/16 at 09:00 Fluticasone Propionate (Flonase 0.05% Nasal) 1 spray DAILY NASAL Last administered on 08/11/16 09:23; Admin Dose 1 SPRAY; Start 08/09/16 at 09:00 Insulin Glargine (Lantus) 8 unit QHS SC Last administered on 08/10/16 20:53; Admin Dose 8 UNIT; Start 08/08/16 at 21:00 Multivit/Ca Carb/ B Cmplx/FA/Prenat (Magui-Cedric) 1 tab DAILY GTB Last administered on 08/10/16 10:14; Admin Dose 1 TAB; Start 08/09/16 at 09:00 Ondansetron HCl (Zofran (Ped)) 4 mg Q6H PRN GTB NAUSEA AND/OR VOMITING; Start 08/08/16 at 13:00 Paroxetine HCl (Paxil) 20 mg DAILY GTB Last administered on 08/11/16 09:14; Admin Dose 20 MG; Start 08/09/16 at 09:00 Senna (Senokot) 2 tab hs GTB Last administered on 08/10/16 20:45; Admin Dose 2 TAB; Start 08/08/16 at 21:00 Warfarin Sodium (Coumadin) 4 mg DAILY@17 GTB Last administered on 08/09/16 17: 20; Admin Dose 4 MG; Start 08/09/16 at 17:00; Status Future hold Acetaminophen (Tylenol Liquid) 650 mg Q4H PRN GTB PAIN AND OR ELEVATED TEMP; Start 08/08/16 at 12:41 Ascorbic Acid (Vitamin C) 250 mg DAILY GTB Last administered on 08/11/16 09:14 ; Admin Dose 250 MG; Start 08/09/16 at 09:00 Bisacodyl (Dulcolax Supp) 10 mg DAILY PRN [place] CONSTIPATION; Start 08/08/16 at 13 :00 Bumetanide (Bumex) 2 mg DAILY@06 PRN GTB EDEMA; Start 08/08/16 at 13:00 Atorvastatin Calcium 20 mg 20 mg DAILY@21 PO Last administered on 08/10/16 20: 45; Admin Dose 20 MG; Start 08/09/16 at 21:00 Meropenem (Merrem 500 Mg/ 100 ml (Pmx)) 100 ml @ 200 mls/hr Q24H IVPB Last administered on 08/10/16 20:45; Admin Dose 200 MLS/HR; Start 08/08/16 at 21:00 Miscellaneous Information 1 ea NOTE XX ; Start 08/08/16 at 21:00 Glucose (Glutose) 15 gm Q15M PRN PO DECREASED GLUCOSE; Start 08/08/16 at 21:00 Glucose (Glutose) 22.5 gm Q15M PRN PO DECREASED GLUCOSE; Start 08/08/16 at 21: 00 Dextrose (D50w Syringe) 25 ml Q15M PRN IV DECREASED GLUCOSE; Start 08/08/16 at 21:00 Dextrose (D50w Syringe) 50 ml Q15M PRN IV DECREASED GLUCOSE; Start 08/08/16 at 21:00 Glucagon (Glucagen) 1 mg Q15M PRN IM DECREASED GLUCOSE; Start 08/08/16 at 21:00 Glucose (Glutose) 15 gm Q15M PRN BUCCAL DECREASED GLUCOSE; Start 08/08/16 at 21 :00 Insulin Aspart (Novolog Insulin Pen) NOVOLOG *MILD* ALGORI... Q4 SC Last administered on 08/11/16 09:30; Admin Dose 2 UNIT; Start 08/09/16 at 09:00 Collagenase 1 applic 1 applic DAILY TOP Last administered on 08/11/16 09:23; Admin Dose 1 APPLIC; Start 08/09/16 at 21:00 Vancomycin HCl/ Sodium Chloride (Vancocin/NS) 250 ml @ 83.333 mls/ hr 12 IVPB ; Start 08/11/16 at 12:00; Stop 08/11/16 at 23:00 Assessment/Plan Chief Complaint/Hosp Course 1. Sepsis, status post shock. Etiology is secondary to healthcare-associated pneumonia, urinary tract infection and decubitus wound. The patient is currently off pressor support. Plan at this point is to continue antibiotic therapy. Cultures have been reviewed, negative to date. Will follow up with infectious disease for further recommendations. 2. Ventilator-dependent respiratory failure. Vent settings have been reviewed. ABG has been reviewed. Continue to monitor. 3. Hypokalemia. Replete potassium chloride, 40 mEq. 4. Hypertension. The patient is currently hypotensive. Will continue to monitor. Hold blood pressure medications. 5. End-stage renal disease. Plan for hemodialysis today for 3 hours on a 3K bath, calcium 2.5. 6. Acute on chronic encephalopathy. Etiology is toxic metabolic. Will continue to monitor. The patient's mental status appears to be returning back to baseline. 7. Anemia of chronic disease. Continue to monitor hemoglobin and hematocrit levels. Continue Epogen. 8. Mineral bone disorder. Continue to monitor calcium and phosphorus levels. No need for phosphate binders. 9. Diabetes. Continue Lantus, Accu-Cheks and insulin sliding scale. 10. Dysphagia. Status post PEG. Continue tube feedings. 11. Decubitus wound. Continue offloading. Continue wound care. Consider general surgical consult. 12. History of arrhythmia and atrial fibrillation. Currently rate controlled. Continue Coumadin. INR is supratherapeutic. Will defer to cardiology for management of anticoagulation. 13. Gastrointestinal and deep venous thrombosis prophylaxis. Continue proton pump inhibitor and Coumadin. 14. hypok- replace carefully 15. hypernatremia- adjust conductivity of hd. Problems: DON CASTELLANOS MD Aug 11, 2016 10:12
--- NOTE | 2016-08-11 11:54 | PN ---
DATE: 08/11/2016 SUBJECTIVE: The patient remains stable, on mechanical ventilation. Awake, alert, but not following commands. PHYSICAL EXAMINATION: VITAL SIGNS: Temperature 98, pulse 99, blood pressure 95/67, O2 saturation 96% on 30% FIO2. NECK: Supple. No JVD or lymphadenopathy. Tracheal site appears clean and intact. CARDIAC EXAM: S1, S2. No added sounds or murmurs. CHEST: Diminished air entry bilaterally. ABDOMEN: Soft, nontender. No guarding or rebound. EXTREMITIES: No cyanosis or clubbing. 1+ edema. NEUROLOGIC: Generalized weakness. LABORATORY DATA: White count 9.7, hemoglobin 8, platelets of 213. BUN 41, creatinine 2.52. INR 2. 44. IMPRESSION AND PLAN: 1. Vent-dependent respiratory failure. 2. History of cerebrovascular accident with encephalopathy. 3. Dysphagia with G-tube. 4. End-stage renal failure, on hemodialysis. 5. Decubitus ulcer. PLAN: 1. Continue mechanical ventilation. 2. Tube feeding. 3. Hemodialysis per nephrology. 4. DVT and GI prophylaxis. Dictated By: SHANI DEL REAL/ODALYS Conf#: [id number] DID#: [id number]
[2016-08-11] MEDS ORDERED: VANCOMYCIN 1.5 GM in SOD CHLORIDE 0.9% 250 ML IVPB SCH (12:00)
--- NOTE | 2016-08-11 15:03 | CONS ---
Date/Time of Note Date/Time of Note DATE: 08/11/16 TIME: 15:02 Assessment/Plan Assessment/Plan Chief Complaint/Hosp Course SUBJECTIVE: No acute changes overnight. The patient is noncommunicative, lying comfortably in bed. Off pressors, no fevers MICROBIOLOGY: Blood cultures negative. INDWELLINGS: Trach, PEG, right chest Perm-A-Cath. ANTIMICROBIALS: The patient is on: 1. IV vancomycin. 2. Meropenem. PHYSICAL EXAMINATION: GENERAL: This is a morbidly obese, elderly white man who is lying comfortably in bed. HEENT: Head atraumatic, normocephalic. Sclerae anicteric. Buccal mucosa dry. NECK: Obese, tracheostomy present. CHEST: Rise symmetrical. Breath sounds diminished to bases. HEART: S1, S2. ABDOMEN: Soft, bowel tones present. EXTREMITIES: Without cyanosis. Bilateral trace edema. SKIN: With multiple chronic wounds. ASSESSMENT: 1. Severe sepsis status post shock. 2. Healthcare-associated pneumonia. 3. Acute on chronic respiratory failure. 4. [id number] encephalopathy. 5. End-stage renal disease. 6. Multiple decubitus. 7. Diabetes. PLAN: The patient remains hemodynamically stable. Continue present care, antibiotics, local wound care. DW staff Problems: Consultation Date/Type/Reason Admit Date/Time Aug 08, 2016 at 11:44 Initial Consult Date 08/09/16 Type of Consultation: ID Referring Provider: JENNIFER TAFOYA DO Exam/Review of Systems Vital Signs Vitals Vital Signs Date Time Temp Pulse Resp B/P Pulse Ox O2 Delivery O2 Flow Rate FiO2 08/11/16 13:00 73 17 86/67 100 Mechanical Ventilator 08/11/16 11:45 30 08/11/16 11:00 98.7 08/09/16 08:00 Intake and Output 08/10/16 08/10/16 08/11/16 15:00 23:00 07:00 Intake Total 1080 ml 470 ml 445 ml Output Total 5500 ml Balance -4420 ml 470 ml 445 ml Results Result Diagram: 08/10/16 0400 08/10/16 0400 Results 24 hrs Laboratory Tests Test 08/10/16 17:16 08/10/16 20:30 08/11/16 01:22 08/11/16 04:40 Bedside Glucose 182 215 209 INR International Normalized Ratio 2.44 Prothrombin Time 26.8 #H Prothrombin Time Ratio 2.1 Random Vancomycin Level 10.1 Test 08/11/16 04:48 08/11/16 09:26 08/11/16 14:08 Bedside Glucose 180 208 188 Medications Medications Current Medications Cholecalciferol (Vitamin D) 2,000 unit DAILY GTB Last administered on 09:14; Admin Dose 2,000 UNIT; Start 08/09/16 at 09:00 Famotidine (Pepcid) 20 mg DAILY GTB Last administered on 08/11/16 09:14; Admin Dose 20 MG; Start 08/09/16 at 09:00 Fluticasone Propionate (Flonase 0.05% Nasal) 1 spray DAILY NASAL Last administered on 08/11/16 09:23; Admin Dose 1 SPRAY; Start 08/09/16 at 09:00 Insulin Glargine (Lantus) 8 unit QHS SC Last administered on 08/10/16 20:53; Admin Dose 8 UNIT; Start 08/08/16 at 21:00 Multivit/Ca Carb/ B Cmplx/FA/Prenat (Maugi-Cedric) 1 tab DAILY GTB Last administered on 08/10/16 10:14; Admin Dose 1 TAB; Start 08/09/16 at 09:00 Ondansetron HCl (Zofran (Ped)) 4 mg Q6H PRN GTB NAUSEA AND/OR VOMITING; Start 08/08/16 at 13:00 Paroxetine HCl (Paxil) 20 mg DAILY GTB Last administered on 08/11/16 09:14; Admin Dose 20 MG; Start 08/09/16 at 09:00 Senna (Senokot) 2 tab hs GTB Last administered on 08/10/16 20:45; Admin Dose 2 TAB; Start 08/08/16 at 21:00 Warfarin Sodium (Coumadin) 4 mg DAILY@17 GTB Last administered on 08/09/16 17: 20; Admin Dose 4 MG; Start 08/09/16 at 17:00; Status Future hold Acetaminophen (Tylenol Liquid) 650 mg Q4H PRN GTB PAIN AND OR ELEVATED TEMP; Start 08/08/16 at 12:41 Ascorbic Acid (Vitamin C) 250 mg DAILY GTB Last administered on 08/11/16 09:14 ; Admin Dose 250 MG; Start 08/09/16 at 09:00 Bisacodyl (Dulcolax Supp) 10 mg DAILY PRN [place] CONSTIPATION; Start 08/08/16 at 13 :00 Bumetanide (Bumex) 2 mg DAILY@06 PRN GTB EDEMA; Start 08/08/16 at 13:00 Atorvastatin Calcium 20 mg 20 mg DAILY@21 PO Last administered on 08/10/16 20: 45; Admin Dose 20 MG; Start 08/09/16 at 21:00 Meropenem (Merrem 500 Mg/ 100 ml (Pmx)) 100 ml @ 200 mls/hr Q24H IVPB Last administered on 08/10/16 20:45; Admin Dose 200 MLS/HR; Start 08/08/16 at 21:00 Miscellaneous Information 1 ea NOTE XX ; Start 08/08/16 at 21:00 Glucose (Glutose) 15 gm Q15M PRN PO DECREASED GLUCOSE; Start 08/08/16 at 21:00 Glucose (Glutose) 22.5 gm Q15M PRN PO DECREASED GLUCOSE; Start 08/08/16 at 21: 00 Dextrose (D50w Syringe) 25 ml Q15M PRN IV DECREASED GLUCOSE; Start 08/08/16 at 21:00 Dextrose (D50w Syringe) 50 ml Q15M PRN IV DECREASED GLUCOSE; Start 08/08/16 at 21:00 Glucagon (Glucagen) 1 mg Q15M PRN IM DECREASED GLUCOSE; Start 08/08/16 at 21:00 Glucose (Glutose) 15 gm Q15M PRN BUCCAL DECREASED GLUCOSE; Start 08/08/16 at 21 :00 Insulin Aspart (Novolog Insulin Pen) NOVOLOG *MILD* ALGORI... Q4 SC Last administered on 08/11/16 14:14; Admin Dose 2 UNIT; Start 08/09/16 at 09:00 Collagenase 1 applic 1 applic DAILY TOP Last administered on 08/11/16 09:23; Admin Dose 1 APPLIC; Start 08/09/16 at 21:00 Vancomycin HCl/ Sodium Chloride (Vancocin/NS) 250 ml @ 83.333 mls/ hr 12 IVPB Last administered on 08/11/16 12:26; Admin Dose 83.333 MLS/HR; Start 08/11/16 at 12:00; Stop 08/11/16 at 23:00 SLAVA CHILDRESS NP Aug 11, 2016 15:03
[2016-08-11] MEDS ORDERED: NORepinephrine 8MG/250 ML (PMX 250 ML IV SCH (16:00)
[2016-08-11] MEDS ORDERED: SOD CHLORIDE 0.9% 250 ML IV ONE (16:00)
[2016-08-11] MEDS: WARFARIN 2 MG TAB GTB SCH (18:19)
[2016-08-11] MEDS: SENNA TAB GTB SCH (21:25)
[2016-08-11] MEDS: MEROPENEM 500 MG/100 ML (PMX) 100 ML IVPB SCH (21:25)
[2016-08-11] MEDS: ATORVASTATIN 20 MG TAB PO SCH (21:25)
[2016-08-11] MEDS: INSULIN GLARGINE [LANtus] 3 ML PEN SC SCH (22:16)
[2016-08-11] MEDS ORDERED: POTASSIUM CHLORIDE 250 ML IVPB ONE (23:00)
[2016-08-11] MEDS ORDERED: POTASSIUM CHLORIDE 20 MEQ in SOD CHLORIDE 0.9% 100 ML IVPB PRN (23:00)
[2016-08-12] VITALS (103 sets, daily range): BP systolic 74–131; BP diastolic 47–97; PULSE 68–104; RESP 13–27
[2016-08-12] MEDS: INSULIN ASPART [NOVOLOG] 3 ML PEN SC SCH ×6 (02:08→20:46)
[2016-08-12 03:42] LABS: ADD SCAN DIFF NO
[2016-08-12 03:46] LABS: BASOPHILS % 0.2 % (0.0-2.0); EOSINOPHILS # 0.2 10^3/ul (0.0-0.5); EOSINOPHILS % 1.5 % (0.0-7.0); HEMATOCRIT 26.5 % (42.0-52.0); LYMPHOCYTES # 1.2 10^3/ul (0.8-2.9); LYMPHOCYTES % 10.3 % (15.0-51.0); MEAN CORPUSCULAR HEMOGLOBIN 35.4 pg (29.0-33.0); MEAN CORPUSCULAR HGB CONC 30.2 g/dl (32.0-37.0); MEAN CORPUSCULAR VOLUME 117.3 fl (82.0-101.0); MONOCYTE # 0.7 10^3/ul (0.3-0.9); MONOCYTES % 6.2 % (0.0-11.0); NEUTROPHIL # 9.6 10^3/ul (1.6-7.5); NEUTROPHILS % 80.3 % (39.0-77.0); NUCLEATED RED BLOOD CELLS # 0.1 10^3/ul (0.0-0.0); NUCLEATED RED BLOOD CELLS% 0.4 /100WBC (0.0-0.0); PLATELET COUNT 254 10^3/UL (140-415); RED BLOOD COUNT 2.26 10^6/ul (4.70-6.10); RED CELL DISTRIBUTION WIDTH 15.9 % (11.5-14.5); WHITE BLOOD COUNT 11.9 10^3/ul (4.8-10.8)
[2016-08-12 04:02] LABS: POTASSIUM 3.5 mmol/L (3.5-5.1)
[2016-08-12 04:04] LABS: CREATININE 3.05 mg/dl (0.61-1.24)
[2016-08-12 04:05] LABS: CALCIUM 9.6 mg/dl (8.4-10.2); MAGNESIUM 2.7 mg/dl (1.7-2.5); PHOSPHORUS 2.4 mg/dl (2.5-4.9)
[2016-08-12 05:07] LABS: INR 1.94; PROTIME 22.3 Sec (12.2-14.2); PT RATIO 1.7
[2016-08-12] MEDS: FAMOTIDINE 20 MG TAB GTB SCH (08:34)
[2016-08-12] MEDS: MULTIVIT/CA CARB/B CMPLX/FA TAB GTB SCH (08:34)
[2016-08-12] MEDS: PAROXETINE 20 MG TAB GTB SCH (08:34)
[2016-08-12] MEDS: CHOLECALCIFEROL 2,000 UNIT CAP GTB SCH (08:34)
[2016-08-12] MEDS: ASCORBIC ACID 250 MG TAB GTB SCH (08:34)
[2016-08-12] MEDS: FLUTICASONE 0.05% 16 GM NAS SPRAY NASAL SCH (08:34)
[2016-08-12] MEDS: COLLAGENASE 30 GM TUBE TOP SCH (08:35)
--- NOTE | 2016-08-12 09:21 | CONS ---
Date/Time of Note Date/Time of Note DATE: 08/12/16 TIME: 09:13 Consult Date/Type/Reason Admit Date/Time Aug 08, 2016 at 11:44 Initial Consult Date 08/09/16 Type of Consultation: neph Ordering Provider: JENNIFER TAFOYA DO Subjective patient is a 66-year-old white male who was admitted yesterday transferred over from custodial to ER for evaluation of hypoxemia upon evaluation a chest x-ray was done which is showing complete white out of the left lung. Possibly indicative of underlying extensive pneumonia versus mucus plugging.The patient is critical, but stable. Currently off pressor support. The patient is on hd today. No other acute events noted. No hemoptysis, hematemesis or hematochezia. noted positive cdiff. had ectopy overnight and required k supplement. OBJECTIVE: HEENT: Head is normocephalic. NECK: Shows a trach. HEART: Regular rate. LUNGS: Showed diminished breath sounds at the base. ABDOMEN: Soft, nontender to palpation. No rebound or guarding. EXTREMITIES: Negative for clubbing or cyanosis. No edema. DERMATOLOGIC: No rashes. MUSCULOSKELETAL: Have no joint effusion. NEUROLOGIC: No change in exam. Objective Vital Signs Date Time Temp Pulse Resp B/P Pulse Ox O2 Delivery O2 Flow Rate FiO2 08/12/16 08:00 98 08/12/16 06:45 17 96/78 100 08/12/16 05:37 30 08/12/16 04:00 98.0 Mechanical Ventilator 08/09/16 08:00 Intake and Output 08/11/16 08/11/16 08/12/16 15:00 23:00 07:00 Intake Total 580 ml 1200.55 ml 936.10 ml Balance 580 ml 1200.55 ml 936.10 ml Results/Medications Result Diagram: 08/12/16 0330 08/12/16 0330 Results 24 hrs Laboratory Tests Test 08/11/16 09:26 08/11/16 14:08 08/11/16 18:17 08/11/16 18:20 Bedside Glucose 208 188 199 Stool Occult Blood NEGATIVE Test 08/11/16 20:58 08/11/16 21:00 08/12/16 02:04 08/12/16 03:30 Bedside Glucose 184 201 Magnesium Level 2.7 H 2.7 H Potassium Level 3.0 L 3.6 Anion Gap 16 Basophils # 0.0 Basophils % 0.2 Blood Urea Nitrogen 48 H Calcium Level 9.6 Carbon Dioxide Level 26 Chloride Level 110 Creatinine 3.05 H Eosinophils # 0.2 Eosinophils % 1.5 Glucose Level 186 Hematocrit 26.5 L Hemoglobin 8.0 L Lymphocytes # 1.2 Lymphocytes % 10.3 L Mean Corpuscular Hemoglobin 35.4 H Mean Corpuscular Hemoglobin Concent 30.2 L Mean Corpuscular Volume 117.3 H Mean Platelet Volume 10.0 Monocytes # 0.7 Monocytes % 6.2 Neutrophils # 9.6 H Neutrophils % 80.3 H Nucleated Red Blood Cells # 0.1 H Nucleated Red Blood Cells % 0.4 H Phosphorus Level 2.4 L Platelet Count 254 Red Blood Count 2.26 L Red Cell Distribution Width 15.9 H Sodium Level 148 H White Blood Count 11.9 #H Test 08/12/16 04:45 08/12/16 08:21 INR International Normalized Ratio 1.94 Prothrombin Time 22.3 H Prothrombin Time Ratio 1.7 Bedside Glucose 184 Medications Current Medications Cholecalciferol (Vitamin D) 2,000 unit DAILY GTB Last administered on 08:34; Admin Dose 2,000 UNIT; Start 08/09/16 at 09:00 Famotidine (Pepcid) 20 mg DAILY GTB Last administered on 08/12/16 08:34; Admin Dose 20 MG; Start 08/09/16 at 09:00 Fluticasone Propionate (Flonase 0.05% Nasal) 1 spray DAILY NASAL Last administered on 08/12/16 08:34; Admin Dose 1 SPRAY; Start 08/09/16 at 09:00 Insulin Glargine (Lantus) 8 unit QHS SC Last administered on 08/11/16 22:16; Admin Dose 8 UNIT; Start 08/08/16 at 21:00 Multivit/Ca Carb/ B Cmplx/FA/Prenat (Magui-Cedric) 1 tab DAILY GTB Last administered on 08/12/16 08:34; Admin Dose 1 TAB; Start 08/09/16 at 09:00 Ondansetron HCl (Zofran (Ped)) 4 mg Q6H PRN GTB NAUSEA AND/OR VOMITING; Start 08/08/16 at 13:00 Paroxetine HCl (Paxil) 20 mg DAILY GTB Last administered on 08/12/16 08:34; Admin Dose 20 MG; Start 08/09/16 at 09:00 Senna (Senokot) 2 tab hs GTB Last administered on 08/11/16 21:25; Admin Dose 2 TAB; Start 08/08/16 at 21:00 Warfarin Sodium (Coumadin) 4 mg DAILY@17 GTB Last administered on 08/11/16 18: 19; Admin Dose 4 MG; Start 08/09/16 at 17:00; Status Future hold Acetaminophen (Tylenol Liquid) 650 mg Q4H PRN GTB PAIN AND OR ELEVATED TEMP; Start 08/08/16 at 12:41 Ascorbic Acid (Vitamin C) 250 mg DAILY GTB Last administered on 08/12/16 08:34 ; Admin Dose 250 MG; Start 08/09/16 at 09:00 Bisacodyl (Dulcolax Supp) 10 mg DAILY PRN [place] CONSTIPATION; Start 08/08/16 at 13 :00 Bumetanide (Bumex) 2 mg DAILY@06 PRN GTB EDEMA; Start 08/08/16 at 13:00 Atorvastatin Calcium 20 mg 20 mg DAILY@21 PO Last administered on 08/11/16 21: 25; Admin Dose 20 MG; Start 08/09/16 at 21:00 Meropenem (Merrem 500 Mg/ 100 ml (Pmx)) 100 ml @ 200 mls/hr Q24H IVPB Last administered on 08/11/16 21:25; Admin Dose 200 MLS/HR; Start 08/08/16 at 21:00 Miscellaneous Information 1 ea NOTE XX ; Start 08/08/16 at 21:00 Glucose (Glutose) 15 gm Q15M PRN PO DECREASED GLUCOSE; Start 08/08/16 at 21:00 Glucose (Glutose) 22.5 gm Q15M PRN PO DECREASED GLUCOSE; Start 08/08/16 at 21: 00 Dextrose (D50w Syringe) 25 ml Q15M PRN IV DECREASED GLUCOSE; Start 08/08/16 at 21:00 Dextrose (D50w Syringe) 50 ml Q15M PRN IV DECREASED GLUCOSE; Start 08/08/16 at 21:00 Glucagon (Glucagen) 1 mg Q15M PRN IM DECREASED GLUCOSE; Start 08/08/16 at 21:00 Glucose (Glutose) 15 gm Q15M PRN BUCCAL DECREASED GLUCOSE; Start 08/08/16 at 21 :00 Insulin Aspart (Novolog Insulin Pen) NOVOLOG *MILD* ALGORI... Q4 SC Last administered on 08/12/16 08:36; Admin Dose 2 UNIT; Start 08/09/16 at 09:00 Collagenase 1 applic 1 applic DAILY TOP Last administered on 08/12/16 08:35; Admin Dose 1 APPLIC; Start 08/09/16 at 21:00 Norepinephrine 16 mg/Dextrose 500 ml @ 1.87 mls/hr TITRATE IV ; Start 08/11/16 at 18:00 Potassium Chloride/Sodium Chloride (KCl/NS) 110 ml @ 55 mls/hr ONCE PRN IVPB if K+ <3.5 after recheck; Start 08/11/16 at 23:00; Stop 08/12/16 at 22:59 Assessment/Plan Chief Complaint/Hosp Course 1. Sepsis, status post shock. Etiology is secondary to healthcare-associated pneumonia, urinary tract infection and decubitus wound. The patient is currently off pressor support. Plan at this point is to continue antibiotic therapy. Cultures have been reviewed, negative to date. Will follow up with infectious disease for further recommendations. 2. Ventilator-dependent respiratory failure. Vent settings have been reviewed. ABG has been reviewed. Continue to monitor. 3. Hypokalemia. Replete potassium chloride, 40 mEq. 4. Hypertension. The patient is currently hypotensive. Will continue to monitor. Hold blood pressure medications. 5. End-stage renal disease. Plan for hemodialysis today for 3 hours on a 3K bath, calcium 2.5. 6. Acute on chronic encephalopathy. Etiology is toxic metabolic. Will continue to monitor. The patient's mental status appears to be returning back to baseline. 7. Anemia of chronic disease. Continue to monitor hemoglobin and hematocrit levels. Continue Epogen. 8. Mineral bone disorder. Continue to monitor calcium and phosphorus levels. No need for phosphate binders. 9. Diabetes. Continue Lantus, Accu-Cheks and insulin sliding scale. 10. Dysphagia. Status post PEG. Continue tube feedings. 11. Decubitus wound. Continue offloading. Continue wound care. Consider general surgical consult. 12. History of arrhythmia and atrial fibrillation. Currently rate controlled. Continue Coumadin. INR is supratherapeutic. Will defer to cardiology for management of anticoagulation. 13. Gastrointestinal and deep venous thrombosis prophylaxis. Continue proton pump inhibitor and Coumadin. 14. hypok- replace carefully 15. hypernatremia- adjust conductivity of hd. Problems: DON CASTELLANOS MD Aug 12, 2016 09:20
--- NOTE | 2016-08-12 10:50 | RADRPT ---
PROCEDURE: XR Chest. CLINICAL INDICATION: Pneumonia follow up TECHNIQUE: Anterior chest x-ray. COMPARISON: 08/10/2016 FINDINGS: Endotracheal tube terminates 3 cm above the marcello, unchanged. Right-sided dual lumen dialysis catheters unchanged from previous exam. The interstitial lung markings are prominent, likely pulmonary edema. Small left pleural effusion is unchanged from previous exam. Consolidation left lung base with obscured left hemidiaphragm is unchanged from previous exam. There is no evidence of pneumothorax. The heart size is large. The cardiomediastinal silhouette is otherwise unremarkable. The soft tissues are normal. Osseous structures are unremarkable. IMPRESSION: 1. Stable and satisfactory position of support lines. 2. Prominent interstitial lung markings, suggesting pulmonary edema. 3. Atelectasis versus infiltrate in left lung base, unchanged. 4. Small left pleural effusion, unchanged. 5. Cardiomegaly. RPTAT: QQ .Romeo Estrada MD, MD Date Time Electronically viewed and signed by .Romeo Estrada MD, MD on 08/12/2016 10:50 .M/
[2016-08-12] MEDS: EPOETIN 10000 UNITS/1 ML INJ (ESRD) SC SCH (13:23)
--- NOTE | 2016-08-12 15:10 | PN ---
DATE: 08/12/2016 SUBJECTIVE: Mr. Olmedo is stable this morning on mechanical ventilation, no evidence of respiratory d istress. Still requiring Levophed, however. PHYSICAL EXAMINATION: VITAL SIGNS: Temperature 98, pulse 97, blood pressure 98/70, O2 saturation 96%, FIO2 of 30%. NECK: Supple. Trach site clean and intact. CARDIAC: S1, S2, no added sounds or murmurs. CHEST: Diminished air entry bilaterally. ABDOMEN: Soft, nontender. No guarding or rebound. EXTREMITIES: No cyanosis, clubbing, edema. NEUROLOGIC: Generalized weakness. LABORATORY DATA: White count 11.9, hemoglobin 8, platelets 254. BUN 38, creatinine 3.05. INR was 1.94. IMAGING: Chest x-ray was reviewed, shows patchy bilateral infiltrates. IMPRESSION AND PLAN: 1. Status post hypoxemic respiratory failure. 2. Chronic mechanical ventilation via tracheostomy. 3. Encephalopathy. 4. Septic shock. 5. Possible aspiration pneumonia. 6. Dysphagia with G-tube. PLAN: 1. Continue vasopressors. 2. Transfusion of packed red blood cells. 3. Tube feeding. 4. Vent support. 5. DVT and GI prophylaxis. Dictated By: SHANI DEL REAL/ODALYS Conf#: [id number] DID#: [id number]
--- NOTE | 2016-08-12 16:02 | CONS ---
Date/Time of Note Date/Time of Note DATE: 08/12/16 TIME: 16:01 Assessment/Plan Assessment/Plan Chief Complaint/Hosp Course SUBJECTIVE: No acute changes overnight. The patient is noncommunicative, lying comfortably in bed. Off pressors, no fevers MICROBIOLOGY: Blood cultures negative. INDWELLINGS: Trach, PEG, right chest Perm-A-Cath. ANTIMICROBIALS: The patient is on: 1. IV vancomycin. 2. Meropenem. PHYSICAL EXAMINATION: GENERAL: This is a morbidly obese, elderly white man who is lying comfortably in bed. HEENT: Head atraumatic, normocephalic. Sclerae anicteric. Buccal mucosa dry. NECK: Obese, tracheostomy present. CHEST: Rise symmetrical. Breath sounds diminished to bases. HEART: S1, S2. ABDOMEN: Soft, bowel tones present. EXTREMITIES: Without cyanosis. Bilateral trace edema. SKIN: With multiple chronic wounds. ASSESSMENT: 1. Severe sepsis status post shock. 2. Healthcare-associated pneumonia. 3. Acute on chronic respiratory failure. 4. Vsxki-vu-omqlajl encephalopathy. 5. End-stage renal disease. 6. Multiple decubitus. 7. Diabetes. 8. C dif colitis PLAN: The patient remains hemodynamically stable. Will add PO Vanco, change Merrem to Amikacin, continue IV Vanco, local wound care. JOSE ANTONIO staff Problems: Consultation Date/Type/Reason Admit Date/Time Aug 08, 2016 at 11:44 Initial Consult Date 08/09/16 Type of Consultation: ID Referring Provider: JENNIFER TAFOYA DO Exam/Review of Systems Vital Signs Vitals Vital Signs Date Time Temp Pulse Resp B/P Pulse Ox O2 Delivery O2 Flow Rate FiO2 08/12/16 12:00 97 08/12/16 09:00 16 100 30 08/12/16 06:45 96/78 08/12/16 04:00 98.0 Mechanical Ventilator 08/09/16 08:00 Intake and Output 08/11/16 08/11/16 08/12/16 15:00 23:00 07:00 Intake Total 580 ml 1200.55 ml 936.10 ml Balance 580 ml 1200.55 ml 936.10 ml Results Result Diagram: 08/12/16 0330 08/12/16 0330 Results 24 hrs Laboratory Tests Test 08/11/16 18:17 08/11/16 18:20 08/11/16 20:58 08/11/16 21:00 Stool Occult Blood NEGATIVE Bedside Glucose 199 184 Magnesium Level 2.7 H Potassium Level 3.0 L Test 08/12/16 02:04 08/12/16 03:30 08/12/16 04:45 08/12/16 08:21 Bedside Glucose 201 184 Anion Gap 16 Basophils # 0.0 Basophils % 0.2 Blood Urea Nitrogen 48 H Calcium Level 9.6 Carbon Dioxide Level 26 Chloride Level 110 Creatinine 3.05 H Eosinophils # 0.2 Eosinophils % 1.5 Glucose Level 186 Hematocrit 26.5 L Hemoglobin 8.0 L Lymphocytes # 1.2 Lymphocytes % 10.3 L Magnesium Level 2.7 H Mean Corpuscular Hemoglobin 35.4 H Mean Corpuscular Hemoglobin Concent 30.2 L Mean Corpuscular Volume 117.3 H Mean Platelet Volume 10.0 Monocytes # 0.7 Monocytes % 6.2 Neutrophils # 9.6 H Neutrophils % 80.3 H Nucleated Red Blood Cells # 0.1 H Nucleated Red Blood Cells % 0.4 H Phosphorus Level 2.4 L Platelet Count 254 Potassium Level 3.6 Red Blood Count 2.26 L Red Cell Distribution Width 15.9 H Sodium Level 148 H White Blood Count 11.9 #H INR International Normalized Ratio 1.94 Prothrombin Time 22.3 H Prothrombin Time Ratio 1.7 Test 08/12/16 12:48 Bedside Glucose 221 H Medications Medications Current Medications Cholecalciferol (Vitamin D) 2,000 unit DAILY GTB Last administered on 08:34; Admin Dose 2,000 UNIT; Start 08/09/16 at 09:00 Famotidine (Pepcid) 20 mg DAILY GTB Last administered on 08/12/16 08:34; Admin Dose 20 MG; Start 08/09/16 at 09:00 Fluticasone Propionate (Flonase 0.05% Nasal) 1 spray DAILY NASAL Last administered on 08/12/16 08:34; Admin Dose 1 SPRAY; Start 08/09/16 at 09:00 Insulin Glargine (Lantus) 8 unit QHS SC Last administered on 08/11/16 22:16; Admin Dose 8 UNIT; Start 08/08/16 at 21:00 Multivit/Ca Carb/ B Cmplx/FA/Prenat (Magui-Cedric) 1 tab DAILY GTB Last administered on 08/12/16 08:34; Admin Dose 1 TAB; Start 08/09/16 at 09:00 Ondansetron HCl (Zofran (Ped)) 4 mg Q6H PRN GTB NAUSEA AND/OR VOMITING; Start 08/08/16 at 13:00 Paroxetine HCl (Paxil) 20 mg DAILY GTB Last administered on 08/12/16 08:34; Admin Dose 20 MG; Start 08/09/16 at 09:00 Senna (Senokot) 2 tab hs GTB Last administered on 08/11/16 21:25; Admin Dose 2 TAB; Start 08/08/16 at 21:00 Warfarin Sodium (Coumadin) 4 mg DAILY@17 GTB Last administered on 08/11/16 18: 19; Admin Dose 4 MG; Start 08/09/16 at 17:00; Status Future hold Acetaminophen (Tylenol Liquid) 650 mg Q4H PRN GTB PAIN AND OR ELEVATED TEMP; Start 08/08/16 at 12:41 Ascorbic Acid (Vitamin C) 250 mg DAILY GTB Last administered on 08/12/16 08:34 ; Admin Dose 250 MG; Start 08/09/16 at 09:00 Bisacodyl (Dulcolax Supp) 10 mg DAILY PRN [place] CONSTIPATION; Start 08/08/16 at 13 :00 Bumetanide (Bumex) 2 mg DAILY@06 PRN GTB EDEMA; Start 08/08/16 at 13:00 Atorvastatin Calcium 20 mg 20 mg DAILY@21 PO Last administered on 08/11/16 21: 25; Admin Dose 20 MG; Start 08/09/16 at 21:00 Meropenem (Merrem 500 Mg/ 100 ml (Pmx)) 100 ml @ 200 mls/hr Q24H IVPB Last administered on 08/11/16 21:25; Admin Dose 200 MLS/HR; Start 08/08/16 at 21:00 Miscellaneous Information 1 ea NOTE XX ; Start 08/08/16 at 21:00 Glucose (Glutose) 15 gm Q15M PRN PO DECREASED GLUCOSE; Start 08/08/16 at 21:00 Glucose (Glutose) 22.5 gm Q15M PRN PO DECREASED GLUCOSE; Start 08/08/16 at 21: 00 Dextrose (D50w Syringe) 25 ml Q15M PRN IV DECREASED GLUCOSE; Start 08/08/16 at 21:00 Dextrose (D50w Syringe) 50 ml Q15M PRN IV DECREASED GLUCOSE; Start 08/08/16 at 21:00 Glucagon (Glucagen) 1 mg Q15M PRN IM DECREASED GLUCOSE; Start 08/08/16 at 21:00 Glucose (Glutose) 15 gm Q15M PRN BUCCAL DECREASED GLUCOSE; Start 08/08/16 at 21 :00 Insulin Aspart (Novolog Insulin Pen) NOVOLOG *MILD* ALGORI... Q4 SC Last administered on 08/12/16 13:18; Admin Dose 2 UNIT; Start 08/09/16 at 09:00 Collagenase 1 applic 1 applic DAILY TOP Last administered on 08/12/16 08:35; Admin Dose 1 APPLIC; Start 08/09/16 at 21:00 Norepinephrine 16 mg/Dextrose 500 ml @ 1.87 mls/hr TITRATE IV ; Start 08/11/16 at 18:00 Potassium Chloride/Sodium Chloride (KCl/NS) 110 ml @ 55 mls/hr ONCE PRN IVPB if K+ <3.5 after recheck; Start 08/11/16 at 23:00; Stop 08/12/16 at 22:59 SLAVA CHILDRESS NP Aug 12, 2016 16:02
[2016-08-12] MEDS ORDERED: AMIKACIN IV PER PHARMACY XX SCH (16:30)
[2016-08-12] MEDS: WARFARIN 2 MG TAB GTB SCH (16:50)
[2016-08-12] MEDS ORDERED: AMIKACIN 750 MG in SOD CHLORIDE 0.9% 100 ML IVPB SCH (18:00)
[2016-08-12] MEDS: VANCOMYCIN HCL 250 MG/5ML POSYG PO SCH (18:03)
[2016-08-12] MEDS: ATORVASTATIN 20 MG TAB PO SCH (20:43)
[2016-08-12] MEDS: SENNA TAB GTB SCH (20:43)
[2016-08-12] MEDS: INSULIN GLARGINE [LANtus] 3 ML PEN SC SCH (20:45)
[2016-08-13] VITALS (103 sets, daily range): BP systolic 68–109; BP diastolic 44–79; PULSE 61–102; RESP 11–22
[2016-08-13] MEDS: INSULIN ASPART [NOVOLOG] 3 ML PEN SC SCH ×6 (02:06→20:14)
[2016-08-13 05:03] LABS: ADD SCAN DIFF NO
[2016-08-13 05:07] LABS: BASOPHILS % 0.2 % (0.0-2.0); EOSINOPHILS # 0.3 10^3/ul (0.0-0.5); EOSINOPHILS % 2.9 % (0.0-7.0); HEMATOCRIT 25.8 % (42.0-52.0); HEMOGLOBIN 7.8 g/dl (14.0-18.0); LYMPHOCYTES # 1.2 10^3/ul (0.8-2.9); LYMPHOCYTES % 13.4 % (15.0-51.0); MEAN CORPUSCULAR HEMOGLOBIN 35.1 pg (29.0-33.0); MEAN CORPUSCULAR HGB CONC 30.2 g/dl (32.0-37.0); MEAN CORPUSCULAR VOLUME 116.2 fl (82.0-101.0); MEAN PLATELET VOLUME 10.4 fl (7.4-10.4); MONOCYTE # 0.5 10^3/ul (0.3-0.9); NEUTROPHIL # 6.6 10^3/ul (1.6-7.5); NEUTROPHILS % 76.2 % (39.0-77.0); NUCLEATED RED BLOOD CELLS% 0.3 /100WBC (0.0-0.0); PLATELET COUNT 201 10^3/UL (140-415); RED BLOOD COUNT 2.22 10^6/ul (4.70-6.10); RED CELL DISTRIBUTION WIDTH 18.4 % (11.5-14.5); WHITE BLOOD COUNT 8.6 10^3/ul (4.8-10.8)
[2016-08-13 05:33] LABS: POTASSIUM 3.4 mmol/L (3.5-5.1)
[2016-08-13 05:36] LABS: CREATININE 2.5 mg/dl (0.61-1.24); PHOSPHORUS 2.7 mg/dl (2.5-4.9)
[2016-08-13 05:37] LABS: CALCIUM 8.9 mg/dl (8.4-10.2); MAGNESIUM 2.4 mg/dl (1.7-2.5)
[2016-08-13] MEDS: VANCOMYCIN HCL 250 MG/5ML POSYG PO SCH ×5 (05:40→23:32)
--- NOTE | 2016-08-13 07:41 | RADRPT ---
PROCEDURE: XR Chest. CLINICAL INDICATION: Shortness of breath. TECHNIQUE: Single frontal view. COMPARISON: 08/12/2016. FINDINGS: The tunneled right internal jugular vein dialysis catheter and tracheostomy tube are in satisfactory position. Pulmonary edema is unchanged. There is mild left basilar atelectasis. The lungs are ot herwise clear. The heart is enlarged. There is no pleural effusion. There is no pneumothorax. IMPRESSION: 1. Tracheostomy tube and tunneled dialysis catheter in satisfactory position. 2. Mild pulmonary edema and left basilar atelectasis. 3. Cardiomegaly. RPTAT: QQ .Heladio Farrell MD, MD Date Time Electronically viewed and signed by .Heladio Farrell MD, MD on 08/13/2016 07:40 .R/
[2016-08-13] MEDS ORDERED: POTASSIUM CHLORIDE 20 MEQ POWDER FOR ORAL SOLN GTB ONE (08:00)
[2016-08-13] MEDS: MULTIVIT/CA CARB/B CMPLX/FA TAB GTB SCH (08:29)
[2016-08-13] MEDS: ASCORBIC ACID 250 MG TAB GTB SCH (08:29)
[2016-08-13] MEDS: CHOLECALCIFEROL 2,000 UNIT CAP GTB SCH (08:29)
[2016-08-13] MEDS: FLUTICASONE 0.05% 16 GM NAS SPRAY NASAL SCH (08:29)
[2016-08-13] MEDS: PAROXETINE 20 MG TAB GTB SCH (08:29)
[2016-08-13] MEDS: FAMOTIDINE 20 MG TAB GTB SCH (08:29)
[2016-08-13] MEDS: COLLAGENASE 30 GM TUBE TOP SCH (08:32)
[2016-08-13] MEDS: ALBUMIN HUMAN 25% 100 ML IV SCH ×3 (08:36→23:33)
[2016-08-13 08:38] LABS: IRON 53 ug/dl (35-150)
[2016-08-13 08:47] LABS: TOTAL IRON BINDING CAPACITY 160 ug/dl (241-421)
--- NOTE | 2016-08-13 11:12 | PN ---
DATE: 08/13/2016 SUBJECTIVE: The patient remains critically ill on full ventilatory support, on pressor support. No other acute events noted. No hemoptysis, hematemesis or hematochezia. The patient did receive 1 u nit of blood yesterday. OBJECTIVE: VITAL SIGNS: Blood pressure 103/68, respirations 22, pulse 86, temperature 98.2. I's AND O'S: The patient had 1900 in with 300 out. HEENT: Head is normocephalic. Pupils are reactive. NECK: Shows trach. HEART: Regular rate. LUNGS: Show diminished breath sounds at base. ABDOMEN: Soft, obese, nontender to palpation. Positive PEG. EXTREMITIES: Negative for clubbing, cyanosis, no edema. DERMATOLOGIC: No rashes. MUSCULOSKELETAL: Positive decubitus wound. NEUROLOGIC: Limited exam as the patient is obtunded although able to track. LABORATORY DATA: Shows sodium 147, potassium 3.4, chloride 113, BUN 44, creatinine 2.50. White cou nt 8.6 and hemoglobin was 7.8, hematocrit 25.8, platelet count is 201. IMAGING: The patient's chest x-ray shows some mild pulmonary edema and left basilar atelectasis. The patient's C. difficile is positive. Blood cultures are negative. ASSESSMENT AND PLAN: 1. Septic shock. Etiology is multifactorial secondary to, healthcare-associated pneumonia, decubit us wound, Clostridium difficile colitis. The patient remains on pressor support. Remains on broad spectrum antibiotics and oral vancomycin. Plan at this point is to continue current treatment plan. We will give the patient IV albumin. Will attempt to wean off pressor support. We will follow up with infectious disease for further recommendations. 2. Ventilatory dependent respiratory failure. Vent settings reviewed. ABG is reviewed. Continue to monitor. Follow up with pulmonary. 3. Hypokalemia, replete potassium chloride. 4. End-stage renal disease. The patient had hemodialysis yesterday, tolerated well. Plan for dial ysis again tomorrow for 3 hours, 3K bath, calcium 2.5. 5. Anemia of chronic disease. The patient is status post blood transfusion. Continue Epogen will follow up an iron panel. Consider intensifying Epogen dose. 6. Mineral bone disorder. Monitor calcium, phosphorus levels. No need for phosphate binders. 7. Hypernatremia. We will increase free water flushes 200 mL q.4h. 8. Diabetes. Continue Lantus, Accu-Cheks and sliding scale. 9. Dysphagia status post PEG. Continue tube feed. 10. Clostridium difficile. Continue oral vancomycin. 11. Decubitus wounds. Continue offloading. Continue wound care. 12. Atrial fibrillation, currently rate controlled. Continue Coumadin. INR is near goal. We will defer to cardiology for management. 13. Acute on chronic encephalopathy. Etiology is toxic metabolic. The patient appears at baseline , which is able to track, but is nonverbal due to previous anoxic injury. 14. Gastrointestinal and deep venous thrombosis prophylaxis. Continue proton pump inhibitor and Co umadin. 15. Volume overload. The patient is currently in shock. Will therefore continue gentle IV fluids. Will monitor I's and O's closely. Please note I spent over 40 minutes of critical care time with this patient. Dictated By: JENNIFRE TAFOYA DO NR/NTS Conf#: [id number] DID#: [id number]
[2016-08-13] MEDS: WARFARIN 2 MG TAB GTB SCH (16:44)
--- NOTE | 2016-08-13 17:01 | PN ---
DATE: 08/13/2016 SUBJECTIVE: Patient remains on vasopressor support. Neurologically unchanged. PHYSICAL EXAMINATION: VITAL SIGNS: Temperature 98, pulse is 100, blood pressure 108/68, O2 saturation 96% on FIO2 of 30%. NECK: Trach site appears clean and intact. CARDIAC: S1, S2, no added sounds or murmurs. CHEST: Diminished air entry bilaterally. ABDOMEN: Soft, nontender. No guarding or rebound. EXTREMITIES: No cyanosis, clubbing, edema. NEUROLOGIC: Generalized weakness. LABORATORY DATA: White count 8.6, hemoglobin 7.8, platelets of 201. BUN 44, creatinine 2.5. IMAGING: Chest x-ray was reviewed, shows mild pulmonary edema and bibasilar atelectasis. IMPRESSION AND PLAN: 1. Chronic encephalopathy. 2. Vent dependent respiratory failure. 3. Likely aspiration pneumonia. 4. Dysphagia with G-tube. 5. Renal insufficiency. 6. Significant anemia. PLAN: 1. Continue vasopressor support. 2. Continue mechanical ventilation. 3. Transfusion of packed red blood cells, likely with hemodialysis. 4. Establish code status and goals of care. Dictated By: SHANI DEL REAL/ODALYS Conf#: [id number] DID#: [id number]
[2016-08-13] MEDS: SENNA TAB GTB SCH (20:03)
[2016-08-13] MEDS: ATORVASTATIN 20 MG TAB PO SCH (20:03)
[2016-08-13] MEDS: INSULIN GLARGINE [LANtus] 3 ML PEN SC SCH (20:14)
--- NOTE | 2016-08-13 20:41 | PN ---
DATE: 08/13/2016 SUBJECTIVE: No acute changes. The patient is comfortably in bed. Afebrile. LABORATORY DATA: WBC today 8.6, platelets 201, no shift. INDWELLINGS: Trach, PEG, right chest PermCath. DIAGNOSTICS: Chest x-ray this morning revealed mild pulmonary edema and left basilar atelectasis. ANTIMICROBIALS: The patient is on: 1. IV vancomycin. 2. PO vancomycin. 3. Also on IV amikacin. 4. Status post meropenem. PHYSICAL EXAMINATION: GENERAL: This is a morbidly obese, chronically ill-appearing, elderly man who is lying comfortably in bed. HEENT: Head atraumatic, normocephalic. Sclerae anicteric. Buccal mucosa dry. NECK: Supple. Tracheostomy present. CHEST: Rise symmetrical. Breath sounds diminished. HEART: S1, S2. ABDOMEN: Obese, soft. Bowel tones hypoactive. EXTREMITIES: Without cyanosis. ASSESSMENT: 1. Resolving sepsis. 2. Healthcare-associated pneumonia. 3. Multiple chronic wounds. 4. Clostridium difficile colitis. 5. End-stage renal disease, hemodialysis dependent. 6. Encephalopathy. PLAN: The patient remains unchanged. He is on low dose of Levophed at 1 mcg that is being titrated down. He is on appropriate antimicrobials. Continue present care. Dictated By: SLAVA CHILDRESS [employer] MARKETING SPECIALIST for MEKA MATOS/ODALYS Conf#: [id number] DID#: [id number]
[2016-08-14] VITALS (104 sets, daily range): BP systolic 77–125; BP diastolic 38–105; PULSE 83–118; RESP 12–27
[2016-08-14] MEDS: INSULIN ASPART [NOVOLOG] 3 ML PEN SC SCH ×6 (01:26→21:51)
[2016-08-14 05:51] LABS: ADD SCAN DIFF NO
[2016-08-14 06:15] LABS: INR 1.93; PROTIME 22.2 Sec (12.2-14.2); PT RATIO 1.7
[2016-08-14 06:17] LABS: BASOPHILS % 0.2 % (0.0-2.0); EOSINOPHILS # 0.3 10^3/ul (0.0-0.5); EOSINOPHILS % 2.4 % (0.0-7.0); HEMATOCRIT 27.3 % (42.0-52.0); LYMPHOCYTES # 1.4 10^3/ul (0.8-2.9); MEAN CORPUSCULAR HEMOGLOBIN 34.6 pg (29.0-33.0); MEAN CORPUSCULAR HGB CONC 29.3 g/dl (32.0-37.0); MEAN CORPUSCULAR VOLUME 118.2 fl (82.0-101.0); MEAN PLATELET VOLUME 10.2 fl (7.4-10.4); MONOCYTE # 0.8 10^3/ul (0.3-0.9); MONOCYTES % 6.2 % (0.0-11.0); NEUTROPHIL # 9.9 10^3/ul (1.6-7.5); NUCLEATED RED BLOOD CELLS% 0.2 /100WBC (0.0-0.0); PLATELET COUNT 249 10^3/UL (140-415); RED BLOOD COUNT 2.31 10^6/ul (4.70-6.10); RED CELL DISTRIBUTION WIDTH 18.2 % (11.5-14.5); WHITE BLOOD COUNT 12.5 10^3/ul (4.8-10.8)
[2016-08-14 06:24] LABS: POTASSIUM 3.1 mmol/L (3.5-5.1)
[2016-08-14 06:26] LABS: CREATININE 3.3 mg/dl (0.61-1.24)
[2016-08-14 06:27] LABS: CALCIUM 9.5 mg/dl (8.4-10.2); MAGNESIUM 2.7 mg/dl (1.7-2.5); PHOSPHORUS 2.7 mg/dl (2.5-4.9)
[2016-08-14] MEDS: VANCOMYCIN HCL 250 MG/5ML POSYG PO SCH ×3 (07:03→17:41)
--- NOTE | 2016-08-14 07:57 | PN ---
DATE: 08/13/2016 CARDIOLOGY FOLLOWUP SUBJECTIVE: Discussed with the staff. Rhythm strip was reviewed. The patient remains in atrial fi brillation. Still in the ICU on the vent with full support. Also, still on Levophed drip. Unable to wean off yet. Blood pressure on the low side but has been stable. Received a unit of bloo d yesterday as well. The patient remains nonverbal. MEDICATIONS: Reviewed as per medical reconciliation, personally reviewed. PHYSICAL EXAMINATION: VITAL SIGNS: Temperature 99.9, heart rate of 90, blood pressure of 95/60, respiratory rate of 18, s aturating 100%. HEENT: Normocephalic, atraumatic. Status post tracheostomy, on the vent. Obese gentleman. Eyes: Pupils equal and round. CARDIOVASCULAR: Irregularly irregular. Systolic murmur. PULMONARY: Mild rhonchi, diffuse. GASTROINTESTINAL: Obese, soft, nontender. EXTREMITIES: Positive edema. NEUROLOGIC: Eyes open; however, does not appear to be following commands though. LABORATORY: WBC of 8.6, hemoglobin 7.8, platelets of 201. Sodium 147, potassium 3.4, BUN of 44, cr eatinine 2.5, glucose of 149. Most recent chest x-ray from this morning showed tracheostomy in plac e. Mild pulmonary edema. ASSESSMENT AND PLAN: 1. Septic shock, currently remains on Levophed, unable to wean off so far. 2. Hypoxemic respiratory failure, status post tracheostomy, vent dependent. 3. Renal failure on dialysis. 4. History of valvular heart disease with aortic stenosis. 5. Coronary hypotension and shock. 6. Atrial fibrillation, chronic. 7. History of severe anemia, electrolyte abnormality. 8. Hyperkalemia has been corrected. 9. Dysphagia, PEG placement. 10. Encephalopathy. 11. History of decubitus wounds. RECOMMENDATIONS: I will check the PT, INR again tomorrow and adjust the Coumadin. Continue with Le vophed as tolerated. Continue with the ICU care and vent support. Antibiotic is being managed as p er pulmonary, internal medicine, as well as by ID recommendations. We will continue with the ICU ca re. More than 39 minutes of critical care time was spent in management of this patient excluding any pro cedures. Dictated By: THOM DURAN MD AV/ODALYS Conf#: [id number] DID#: [id number] CC: JENNIFER TAFOYA DO;*[facility]*
[2016-08-14] MEDS ORDERED: POTASSIUM CHLORIDE 20 MEQ POWDER FOR ORAL SOLN GTB ONE (08:00)
[2016-08-14] MEDS: ASCORBIC ACID 250 MG TAB GTB SCH (09:00)
[2016-08-14] MEDS: CHOLECALCIFEROL 2,000 UNIT CAP GTB SCH (09:00)
[2016-08-14] MEDS: MULTIVIT/CA CARB/B CMPLX/FA TAB GTB SCH (09:00)
[2016-08-14] MEDS: PAROXETINE 20 MG TAB GTB SCH (09:00)
[2016-08-14] MEDS: FAMOTIDINE 20 MG TAB GTB SCH (09:00)
[2016-08-14] MEDS: FLUTICASONE 0.05% 16 GM NAS SPRAY NASAL SCH (09:00)
[2016-08-14] MEDS: PANTOPRAZOLE (EC) 40 MG TAB PO SCH (09:16)
[2016-08-14] MEDS: ALBUMIN HUMAN 25% 100 ML IV SCH ×3 (09:17→19:33)
[2016-08-14] MEDS: COLLAGENASE 30 GM TUBE TOP SCH (09:20)
--- NOTE | 2016-08-14 09:36 | PN ---
DATE: 08/14/2016 SUBJECTIVE: The patient remains critically ill on ventilatory support, on pressor support. No othe r acute events noted overnight. No hemoptysis, hematemesis or hematochezia. OBJECTIVE: VITAL SIGNS: Blood pressure 93/59, respirations 18, pulse 91, temperature 98.7. HEENT: Head is normocephalic. NECK: Supple. HEART: Regular rate. LUNGS: Show diminished breath sounds at base. ABDOMEN: Soft, nontender to palpation without rebound or guarding. EXTREMITIES: Negative for clubbing, cyanosis. No edema. DERMATOLOGIC: No rashes. MUSCULOSKELETAL: Positive wounds noted. No change. NEUROLOGIC: No change in exam. MEDICATIONS: The patient's medications have been reviewed. LABORATORY DATA: Shows a sodium of 146, potassium 3.1, chloride 108, BUN 53, creatinine 3.30, magne sium 2.7. White count 12.5, hemoglobin 8.0, hematocrit 27.3, platelet count 249. INR is 1.93. The patient's cultures have been reviewed, x-ray has been reviewed. ASSESSMENT AND PLAN: 1. Septic shock, etiology is multifactorial secondary to, healthcare-associated pneumonia, decubitu s wound, Clostridium difficile colitis. The patient remains on pressor support, IV fluids, receivin g IV antibiotics and oral vancomycin. We will continue current treatment plan. Continue to wean of f pressor support. 2. Ventilator dependent respiratory failure. Vent settings reviewed. ABG is reviewed. Continue t o monitor. 3. End-stage renal disease. The patient is on dialysis Saturday, and Saturday. Will have hemodialysis today for 3 hours, 4K bath, calcium 2.5, ultrafiltrate as tolerated. 4. Hypokalemia, replete potassium chloride. The patient will be dialyzed on high potassium bath. 5. Hypernatremia. Will increase free water flushes 300 mL q.4h. 6. Anemia. Will continue to monitor hemoglobin and hematocrit levels. Continue Epogen. Will calixto sfuse PRBCs as needed. 7. Mineral bone disorder. Continue to monitor calcium, phosphorus levels. No need for phosphate b inders. 8. Diabetes. Continue Accu-Cheks, insulin sliding scale. 9. Dysphagia status post PEG, continue tube feeding. 10. Clostridium difficile colitis. Continue oral vancomycin. 11. Decubitus wound. Continue wound care, offloading. 12. Atrial fibrillation, currently rate controlled. Continue Coumadin. INR is near goal. Defer t o cardiology for further management. 13. Acute on chronic encephalopathy, etiology toxic metabolic. The patient appears to be returning to baseline, able to track, is nonverbal. Continue to monitor. 14. Volume overload secondary to capillary leak IV fluids. We will continue current IV hydration a s the patient is in shock, minimize ultrafiltration dialysis. Continue to monitor closely. 15. GI/deep venous thrombosis prophylaxis. Continue proton pump inhibitor and Coumadin. Please note I spent over 40 minutes of critical care time with this patient. Dictated By: JENNIFER TAFOYA DO NR/NTS Conf#: [id number] DID#: [id number]
--- NOTE | 2016-08-14 10:45 | PN ---
DATE: 08/14/2016 SUBJECTIVE: The patient Olmedo continues mechanical ventilation, continues vasopressor support. Neur ologically unhanged. PHYSICAL EXAMINATION: VITAL SIGNS: Temperature 99, pulse 96, blood pressure 101/63, O2 saturation 96% on 30% FIO2. NECK: Trach site clean and intact. CARDIAC: S1, S2, no added sounds or murmurs. CHEST: Diminished air entry bilaterally. ABDOMEN: Soft, nontender. No guarding or rebound. EXTREMITIES: No cyanosis, clubbing, 1+ edema. NEUROLOGIC: Generalized weakness. LABORATORY DATA: White count 12.1, hemoglobin 8.0, platelets 249. Chemistry: BUN 53, creatinine 3 .3. IMPRESSION AND PLAN: 1. Chronic respiratory failure. 2. History of encephalopathy. 3. No evidence for adrenal insufficiency with a cortisol 24. 4. Dysphagia with G-tube. PLAN: 1. Continue antibiotics. 2. Vent support. 3. Tube feeding. 4. Consider addressing code status as overall prognosis is very poor. Dictated By: SHANI DEL REAL/ODALYS Conf#: [id number] DID#: [id number]
[2016-08-14] MEDS ORDERED: VANCOMYCIN 1.5 GM in SOD CHLORIDE 0.9% 250 ML IVPB ONE (12:00)
--- NOTE | 2016-08-14 14:05 | PN ---
DATE: 08/14/2016 SUBJECTIVE: No acute changes. The patient is lying comfortably in bed, no fevers. He is still on low dose of Levophed drip. Temperature max yesterday was 100.3, temperature current 99.1,. LABORATORY DATA: BUN 12.5. Platelets 249, neutrophils 79. ANTIMICROBIALS: 1. Vancomycin. 2. Amikacin. 3. Oral vancomycin. INDWELLINGS: Trach, PEG, femoral triple-lumen catheter and PermCath. PHYSICAL EXAMINATION: GENERAL: Morbidly obese, well-developed elderly man who is in no distress. HEENT: Head atraumatic, normocephalic. Sclerae anicteric. Buccal mucosa dry. NECK: Supple. Tracheostomy present. CHEST: Rise symmetrical. Breath sounds diminished. HEART: S1, S2. ABDOMEN: Soft. Bowel sounds present. EXTREMITIES: Without cyanosis. ASSESSMENT: 1. Sepsis with shock. 2. Clostridium difficile colitis. 3. Healthcare-associated pneumonia. 4. Multiple chronic decubiti. 5. End-stage renal disease, hemodialysis dependent. PLAN: The patient remains unchanged, still requires Levophed drip for blood pressure support. He i s on appropriate coverage in regards to his antibiotics. He is followed by multiple consultants. W e will continue him on current regimen. Dictated By: SLAVA CHILDRESS APPRENTICESHIP TRAINING REPRESENTATIVE for MEKA MATOS/NTS Conf#: [id number] DID#: [id number]
[2016-08-14] MEDS: AMIKACIN 500 MG in SOD CHLORIDE 0.9% 100 ML IVPB SCH (17:07)
[2016-08-14] MEDS: WARFARIN 2 MG TAB GTB SCH (17:13)
[2016-08-14] MEDS: ATORVASTATIN 20 MG TAB PO SCH (21:41)
[2016-08-14] MEDS: SENNA TAB GTB SCH (21:41)
[2016-08-14] MEDS: INSULIN GLARGINE [LANtus] 3 ML PEN SC SCH (21:52)
--- NOTE | 2016-08-14 23:54 | PN ---
DATE: 08/14/2016 CARDIOLOGY FOLLOWUP SUBJECTIVE: No new cardiac events. The patient remains in sinus rhythm, has frequent PVCs. Short runs of nonsustained VT noted from yesterday. The patient remains nonverbal status post tracheostom y. Medications reviewed. The patient is still hypotensive, required to be on pressors, still on Le vophed drip. MEDICATIONS: Reviewed as per medical reconciliation, personally reviewed. PHYSICAL EXAMINATION: VITAL SIGNS: Temperature 99.1. T-max is 100.3, heart rate of 83, blood pressure 96/72, respiration rate of 16, saturating 99% to 100%. HEENT: Normocephalic, atraumatic. Status post tracheostomy, on the vent now. EYES: Pupils are equal. Eyes are open. CARDIOVASCULAR: Regular rate and rhythm, systolic murmur. PULMONARY: Anteriorly with mild rhonchi, diffuse. GASTROINTESTINAL: Soft, nontender, obese. Status post PEG placement. EXTREMITIES: Positive lower extremity edema. DERMATOLOGIC: There are multiple ecchymoses. NEUROLOGIC: Eyes are open; however, does not appear to be following commands, though. DERMATOLOGIC: Multiple ecchymoses. PSYCHIATRIC: Appears to be calm. LABORATORY: WBC of 12.5, hemoglobin 8, platelets 249. Sodium 146, potassium 3.1, BUN of 53, creati nine of 3.3, glucose 156. INR is 1.93. ASSESSMENT AND PLAN: 1. Hypoxemic respiratory failure, status tracheostomy. 2. Septic shock, currently still on Levophed, unable to eat also. 3. Renal failure on dialysis. 4. Valvular heart disease, aortic stenosis. 5. History of hypertension, currently in shock and hypotensive. 6. Chronic atrial fibrillation. 7. Anemia. 8. Hyperkalemia. 9. Dysphagia. 10. Encephalopathy. 11. Multiple decubitus wounds. RECOMMENDATIONS: We will continue with the Coumadin and adjust it as needed. Transfusion p.r.n. D ialysis as per renal. Antibiotic is being done as per internal medicine and ID recommendations. Co ntinue with statin. Diabetic control will be continued as well. Continue with ICU care. Dictated By: THOM HUSAIN/ODALYS Conf#: [id number] DID#: [id number] CC: JENNIFER TAFOYA DO;*[facility]*
[2016-08-15] VITALS (96 sets, daily range): BP systolic 84–144; BP diastolic 38–86; PULSE 83–109; RESP 10–23
[2016-08-15] MEDS: VANCOMYCIN HCL 250 MG/5ML POSYG PO SCH ×4 (00:55→17:26)
[2016-08-15] MEDS: INSULIN ASPART [NOVOLOG] 3 ML PEN SC SCH ×6 (01:40→20:37)
[2016-08-15] MEDS: ALBUMIN HUMAN 25% 100 ML IV SCH ×3 (01:42→17:00)
[2016-08-15] MEDS: PANTOPRAZOLE (EC) 40 MG TAB PO SCH (05:26)
[2016-08-15 06:04] LABS: ADD SCAN DIFF NO
[2016-08-15 06:14] LABS: BASOPHILS % 0.2 % (0.0-2.0); EOSINOPHILS # 0.2 10^3/ul (0.0-0.5); EOSINOPHILS % 2.3 % (0.0-7.0); HEMOGLOBIN 8.2 g/dl (14.0-18.0); LYMPHOCYTES # 1.4 10^3/ul (0.8-2.9); LYMPHOCYTES % 12.9 % (15.0-51.0); MEAN CORPUSCULAR HEMOGLOBIN 35.8 pg (29.0-33.0); MEAN CORPUSCULAR HGB CONC 30.4 g/dl (32.0-37.0); MEAN CORPUSCULAR VOLUME 117.9 fl (82.0-101.0); MEAN PLATELET VOLUME 10.2 fl (7.4-10.4); MONOCYTE # 0.9 10^3/ul (0.3-0.9); MONOCYTES % 8.3 % (0.0-11.0); NEUTROPHIL # 7.9 10^3/ul (1.6-7.5); NEUTROPHILS % 74.9 % (39.0-77.0); NUCLEATED RED BLOOD CELLS% 0.2 /100WBC (0.0-0.0); PLATELET COUNT 265 10^3/UL (140-415); RED BLOOD COUNT 2.29 10^6/ul (4.70-6.10); RED CELL DISTRIBUTION WIDTH 18.3 % (11.5-14.5); WHITE BLOOD COUNT 10.6 10^3/ul (4.8-10.8)
[2016-08-15 06:22] LABS: INR 1.84; PROTIME 21.4 Sec (12.2-14.2); PT RATIO 1.7
[2016-08-15 06:25] LABS: CREATININE 2.55 mg/dl (0.61-1.24)
[2016-08-15 06:26] LABS: CALCIUM 9.7 mg/dl (8.4-10.2); MAGNESIUM 2.6 mg/dl (1.7-2.5); PHOSPHORUS 2.4 mg/dl (2.5-4.9)
[2016-08-15 06:34] LABS: POTASSIUM 2.8 mmol/L (3.5-5.1)
[2016-08-15] MEDS ORDERED: POTASSIUM CHLORIDE 20 MEQ POWDER FOR ORAL SOLN GTB ONE (08:00)
[2016-08-15] MEDS: ASCORBIC ACID 250 MG TAB GTB SCH (09:00)
[2016-08-15] MEDS: CHOLECALCIFEROL 2,000 UNIT CAP GTB SCH (09:00)
[2016-08-15] MEDS: MULTIVIT/CA CARB/B CMPLX/FA TAB GTB SCH (09:00)
[2016-08-15] MEDS: PAROXETINE 20 MG TAB GTB SCH (09:00)
[2016-08-15] MEDS: COLLAGENASE 30 GM TUBE TOP SCH (09:01)
[2016-08-15] MEDS: FLUTICASONE 0.05% 16 GM NAS SPRAY NASAL SCH (09:01)
[2016-08-15] MEDS: FAMOTIDINE 20 MG TAB GTB SCH (09:26)
--- NOTE | 2016-08-15 09:41 | PN ---
DATE: 08/15/2016 SUBJECTIVE: The patient remains critically ill on pressor support. The patient had hemodialysis ye sterday with 3 liters removed. The patient is unable to be weaned off pressors, no other events not ed. No hemoptysis, hematemesis or hematochezia. OBJECTIVE: VITAL SIGNS: Blood pressure 111/49, respirations 13, pulse 102, temperature 98.6. I'S AND O'S: The patient had 3.7 L in, 3 liters out. HEENT: Head is normocephalic. NECK: Supple. HEART: Regular rate. LUNGS: Show diminished breath sounds at the base. Positive rhonchi. ABDOMEN: Soft, nontender to palpation. Positive PEG. EXTREMITIES: Negative for clubbing, cyanosis. No edema. DERMATOLOGIC: No rashes. MUSCULOSKELETAL: Positive decubitus wound. NEUROLOGIC: No change in exam. Patient is able to track. LABORATORY DATA: Shows a sodium 145, potassium 2.8, chloride 108, BUN 35, creatinine 2.55, phosphor us 2.4, magnesium 2.6. White count 10.6, hemoglobin 9.2, hematocrit 27.0, platelet count of 265. ASSESSMENT AND PLAN: 1. Septic shock, etiology is multifactorial secondary to healthcare-associated pneumonia, decubitus wounds, Clostridium difficile colitis. The patient is on broad spectrum antibiotics oral vancomyci n. Patient's cultures have been reviewed. Blood cultures have been negative to date. We will cont inue current treatment plan. We will continue IV hydration with albumin. Follow up with Infectious Disease for further recommendations. 2. Ventilatory dependent respiratory failure. Vent settings have been reviewed. ABG is reviewed. Continue to monitor. 3. End-stage renal disease. The patient had hemodialysis yesterday, tolerated well. Plan for dial ysis again tomorrow for solute clearance. 4. Hypokalemia. The patient will be repleted with potassium chloride 60 mEq p.o. x1. We will repe at a potassium level at 1500. 5. Hypernatremia. We will increase free water flushes 400 mL q.4h. 6. Anemia of chronic disease. We will continue Epogen. The patient is status post blood transfusi on. 7. Mineral bone disorder. We will monitor calcium and phosphorus levels. If phosphorus levels re main low we will give supplementation Phos-NaK x1. 8. Diabetes. If the patient's glucose levels remain elevated we will increase Lantus to 12 units, continue insulin sliding scale. 9. Dysphagia. Status post percutaneous endoscopic gastrostomy tube. Continue tube feeding. 10. Clostridium difficile colitis. Continue oral vancomycin. 11. Decubitus wound. Continue wound care, offloading. 12. Atrial fibrillation, currently rate controlled. The patient is on Coumadin, being adjusted by cardiology. 13. Acute on chronic encephalopathy. Etiology is toxic metabolic. The patient appears to be retur anthony to baseline. 14. Volume overload secondary to sepsis, capillary leak, IV fluids. Patient remains in shock. We will minimize ultrafiltration with dialysis. We will continue to monitor closely. 15. GI and deep venous thrombosis prophylaxis. Continue proton pump inhibitor and Coumadin. Please note I spent over 40 minutes of critical care time with this patient. Dictated By: JENNIFER KNOWLES/ODALYS Conf#: [id number] DID#: [id number]
--- NOTE | 2016-08-15 09:53 | CONS ---
Date/Time of Note Date/Time of Note DATE: 08/15/16 TIME: 09:51 Consult Date/Type/Reason Admit Date/Time Aug 08, 2016 at 11:44 Initial Consult Date 08/09/16 Type of Consultation: pulmonary Ordering Provider: JENNIFER TAFOYA DO Subjective No changes patient remains on mechanical ventilation and vasopressors Neurologically unchanged Objective Vital Signs Date Time Temp Pulse Resp B/P Pulse Ox O2 Delivery O2 Flow Rate FiO2 08/15/16 08:00 89 08/15/16 06:30 13 111/49 100 08/15/16 06:15 Mechanical Ventilator 08/15/16 05:20 30 08/15/16 04:00 99.0 Intake and Output 08/14/16 08/14/16 08/15/16 15:00 23:00 07:00 Intake Total 1513.74 ml 1466.22 ml 818.09 ml Output Total 3500 ml Balance -1986.26 ml 1466.22 ml 818.09 ml PHYSICAL EXAMINATION: VITAL SIGNS: As above NECK: Trach site clean and intact. CARDIAC: S1, S2, no added sounds or murmurs. CHEST: Diminished air entry bilaterally. ABDOMEN: Soft, nontender. No guarding or rebound. EXTREMITIES: No cyanosis, clubbing, 1+ edema. NEUROLOGIC: Generalized weakness. Results/Medications Result Diagram: 08/15/16 04308/15/16 0430 Results 24 hrs Laboratory Tests Test 08/14/16 12:38 08/14/16 17:29 08/14/16 21:43 08/15/16 01:38 Bedside Glucose 187 191 247 H 184 Test 08/15/16 04:30 08/15/16 04:46 08/15/16 09:22 Anion Gap 16 Basophils # 0.0 Basophils % 0.2 Blood Urea Nitrogen 35 #H Calcium Level 9.7 Carbon Dioxide Level 27 Chloride Level 105 Creatinine 2.55 H Eosinophils # 0.2 Eosinophils % 2.3 Glucose Level 173 Hematocrit 27.0 L Hemoglobin 8.2 L INR International Normalized Ratio 1.84 Lymphocytes # 1.4 Lymphocytes % 12.9 L Magnesium Level 2.6 H Mean Corpuscular Hemoglobin 35.8 H Mean Corpuscular Hemoglobin Concent 30.4 L Mean Corpuscular Volume 117.9 H Mean Platelet Volume 10.2 Monocytes # 0.9 Monocytes % 8.3 Neutrophils # 7.9 H Neutrophils % 74.9 Nucleated Red Blood Cells # 0.0 Nucleated Red Blood Cells % 0.2 H Phosphorus Level 2.4 L Platelet Count 265 Potassium Level 2.8 *L Prothrombin Time 21.4 H Prothrombin Time Ratio 1.7 Red Blood Count 2.29 L Red Cell Distribution Width 18.3 H Sodium Level 145 H White Blood Count 10.6 Bedside Glucose 208 201 Medications Current Medications Cholecalciferol (Vitamin D) 2,000 unit DAILY GTB Last administered on 09:00; Admin Dose 2,000 UNIT; Start 08/09/16 at 09:00 Famotidine (Pepcid) 20 mg DAILY GTB Last administered on 08/15/16 09:26; Admin Dose 20 MG; Start 08/09/16 at 09:00 Fluticasone Propionate (Flonase 0.05% Nasal) 1 spray DAILY NASAL Last administered on 08/15/16 09:01; Admin Dose 1 SPRAY; Start 08/09/16 at 09:00 Multivit/Ca Carb/ B Cmplx/FA/Prenat (Magui-Cedric) 1 tab DAILY GTB Last administered on 08/15/16 09:00; Admin Dose 1 TAB; Start 08/09/16 at 09:00 Ondansetron HCl (Zofran (Ped)) 4 mg Q6H PRN GTB NAUSEA AND/OR VOMITING; Start 08/08/16 at 13:00 Paroxetine HCl (Paxil) 20 mg DAILY GTB Last administered on 08/15/16 09:00; Admin Dose 20 MG; Start 08/09/16 at 09:00 Senna (Senokot) 2 tab hs GTB Last administered on 08/14/16 21:41; Admin Dose 2 TAB; Start 08/08/16 at 21:00 Warfarin Sodium (Coumadin) 4 mg DAILY@17 GTB Last administered on 08/14/16 17: 13; Admin Dose 4 MG; Start 08/09/16 at 17:00; Status Future hold Acetaminophen (Tylenol Liquid) 650 mg Q4H PRN GTB PAIN AND OR ELEVATED TEMP; Start 08/08/16 at 12:41 Ascorbic Acid (Vitamin C) 250 mg DAILY GTB Last administered on 08/15/16 09:00 ; Admin Dose 250 MG; Start 08/09/16 at 09:00 Bisacodyl (Dulcolax Supp) 10 mg DAILY PRN [place] CONSTIPATION; Start 08/08/16 at 13 :00 Atorvastatin Calcium (Lipitor) 20 mg DAILY@21 PO Last administered on 21:41; Admin Dose 20 MG; Start 08/09/16 at 21:00 Miscellaneous Information 1 ea NOTE XX ; Start 08/08/16 at 21:00 Glucose (Glutose) 15 gm Q15M PRN PO DECREASED GLUCOSE; Start 08/08/16 at 21:00 Glucose (Glutose) 22.5 gm Q15M PRN PO DECREASED GLUCOSE; Start 08/08/16 at 21: 00 Dextrose (D50w Syringe) 25 ml Q15M PRN IV DECREASED GLUCOSE; Start 08/08/16 at 21:00 Dextrose (D50w Syringe) 50 ml Q15M PRN IV DECREASED GLUCOSE; Start 08/08/16 at 21:00 Glucagon (Glucagen) 1 mg Q15M PRN IM DECREASED GLUCOSE; Start 08/08/16 at 21:00 Glucose (Glutose) 15 gm Q15M PRN BUCCAL DECREASED GLUCOSE; Start 08/08/16 at 21 :00 Insulin Aspart (Novolog Insulin Pen) NOVOLOG *MILD* ALGORI... Q4 SC Last administered on 08/15/16 09:29; Admin Dose 2 UNIT; Start 08/09/16 at 09:00 Collagenase 1 applic 1 applic DAILY TOP Last administered on 08/15/16 09:01; Admin Dose 1 APPLIC; Start 08/09/16 at 21:00 Norepinephrine/ Dextrose (Levophed/D5W) 500 ml @ 1.87 mls/hr TITRATE IV Last administered on 08/13/16 03:38; Admin Dose 19.74 MLS/HR; Start 08/11/16 at 18: 00 Vancomycin HCl (Vancomycin Oral Syringe) 250 mg Q6 PO Last administered on 08/15 05:26; Admin Dose 250 MG; Start 08/12/16 at 18:00 Amikacin Sulfate (Amikacin Iv Per Pharmacy) AMIKACIN PER PHARMACY NOTE XX ; Start 08/12/16 at 16:30 Pantoprazole (Protonix Tab) 40 mg DAILY@06 PO Last administered on 08/15/16 05 :26; Admin Dose 40 MG; Start 08/14/16 at 09:00 Insulin Glargine (Lantus) 12 unit QHS SC ; Start 08/15/16 at 21:00 Sodium Phosphate 250 mg 250 mg BID GTB ; Start 08/15/16 at 10:00; Stop 08/15/16 at 21:01 Albumin Human (Albumin Human 25%) 100 ml @ 100 mls/hr Q8H IV Last administered on 08/15/16t 09:26; Admin Dose 100 MLS/HR; Start 08/15/16 at 08:30 ; Stop 08/16/16 at 01:29 Assessment/Plan Chief Complaint/Hosp Course IMPRESSION AND PLAN: 1. Chronic respiratory failure. 2. History of encephalopathy. 3. No evidence for adrenal insufficiency with a cortisol 24. 4. Dysphagia with G-tube. PLAN: 1. Continue antibiotics. 2. Vent support. 3. Tube feeding. 4. Consider addressing code status as overall prognosis is very poor. 5. Consider palliative care consult Problems: SHANI FAY MD, [facility] Aug 15, 2016 09:53
--- NOTE | 2016-08-15 10:06 | PN ---
DATE: 08/15/2016 CARDIOLOGY FOLLOWUP PROGRESS NOTE SUBJECTIVE: Discussed with the staff. Rhythm strip was reviewed. The patient remains in atrial fi brillation. Heart rate has remained stable overnight. Still hypotensive, still on Levophed and act ually it had to be increased overnight to 8 mcg. The patient remains nonverbal. Appears to be more responsive and follows more basic commands at this point. MEDICATIONS: Reviewed as per medication reconciliation, which was personally reviewed. PHYSICAL EXAMINATION: VITAL SIGNS: Temperature 99, T-max is 100.3, heart rate is 100, blood pressure 111/49, respiration rate of 30, saturating 100%. HEENT: Normocephalic, atraumatic. Obese gentleman. Pupils equal and round. NECK: Status post tracheostomy. CARDIOVASCULAR: Irregularly irregular. Systolic murmur. PULMONARY: Anteriorly with no wheezes, minimal rhonchi. GASTROINTESTINAL: Obese, soft, nontender. EXTREMITIES: With positive edema of lower extremity. NEUROLOGIC: Opens his eyes. He is able to close his eyes on command; however, he is not able to re spond much more than that. PSYCHIATRIC: Appears to be calm. DERM: No acute bleeding signs. LABORATORY DATA: WBC of 10.6, hemoglobin 8.2, platelets of 265. Sodium 145, potassium 2.8, BUN of 35, creatinine 2.55, glucose of 173. INR is 1.84. ASSESSMENT AND PLAN: 1. Sepsis and shock, currently is required to be on Levophed. 2. Hypoxemic respiratory failure, status post tracheostomy, vent dependent. 3. Renal failure on dialysis. 4. Aortic stenosis. 5. Atrial fibrillation. 6. History of hypertension, currently hypotensive and in shock. 7. Anemia. 8. Electrolyte abnormalities and hypokalemia. 9. Dysphagia, status post percutaneous endoscopic gastrostomy placement. 10. Encephalopathy. 11. Multiple decubitus wounds. RECOMMENDATIONS: Antibiotics will be continued and managed as per ID's recommendation. Continue th e vent support. Heart rate overall has been stable. The patient on anticoagulation with Coumadin. Will continue and adjust it as needed. Statin will be continued as tolerated. Diabetic management as per internal medicine. Electrolytes including potassium to be replaced as per nephrology team. We will continue with the ICU care and vent support. Continue with Levophed for now, will try to ti trate off if possible. Dictated By: THOM HUSAIN/ODALYS Conf#: [id number] DID#: [id number] CC: JENNIFER TAFOYA DO;*EndCC*
[2016-08-15] MEDS: NEUTRA-PHOS 250 MG PACKET GTB SCH ×2 (10:36→20:11)
--- NOTE | 2016-08-15 12:29 | PN ---
DATE: 08/15/2016 SUBJECTIVE: No changes. The patient remains on Levophed drip in no distress. He is noncommunicative, nonverbal. VITAL SIGNS: Temperature 98, pulse 98, respirations 20, blood pressure 106/53, saturation 100 on 30%. LABORATORY DATA: WBC 10.6, H and H 8.2 and 27, platelets of 265. INDWELLINGS: Trach, PEG and right IJ PermCath, femoral triple-lumen catheter. ANTIMICROBIALS: 1. IV and p.o. Vancomycin. 2. Amikacin. PHYSICAL EXAMINATION: GENERAL: This is a morbidly obese elderly man chronically ill-appearing, who is noncommunicative, in no distress. HEENT: Head atraumatic, normocephalic. Sclerae anicteric. Buccal mucosa dry. NECK: Obese. CHEST: Rise symmetrical. Breath sounds diminished. HEART: S1, S2. ABDOMEN: Soft. Bowel tones present. EXTREMITIES: Without cyanosis. Bilateral edema. SKIN: With multiple decubitus. ASSESSMENT: 1. Septic shock. 2. Clostridium difficile colitis. 3. Multiple decubitus. 4. Acute on chronic respiratory failure with resolving pneumonia. 5. Morbid obesity. 6. End-stage renal disease. 7. Encephalopathy. PLAN: The patient remains unchanged, on appropriate antimicrobials, seen by multiple consultants. Continue present care. Dictated By: SLAVA CHILDRESS BLADDER BLOWER for MEKA MATOS/ODALYS Conf#: [id number] DID#: [id number] MTDD
[2016-08-15] MEDS ORDERED: LIDOCAINE 1% (MDV) 20 ML INJ SC ONE (14:30)
[2016-08-15 15:04] LABS: POTASSIUM 3.5 mmol/L (3.5-5.1)
[2016-08-15 15:07] LABS: CALCIUM 9.9 mg/dl (8.4-10.2); CREATININE 2.95 mg/dl (0.61-1.24)
[2016-08-15] MEDS: WARFARIN 2 MG TAB GTB SCH (17:21)
[2016-08-15] MEDS: ATORVASTATIN 20 MG TAB PO SCH (20:11)
[2016-08-15] MEDS: SENNA TAB GTB SCH (20:11)
[2016-08-15] MEDS: INSULIN GLARGINE [LANtus] 3 ML PEN SC SCH (20:38)
[2016-08-16] VITALS (83 sets, daily range): BP systolic 36–145; BP diastolic 27–90; PULSE 65–97; RESP 13–24
[2016-08-16] MEDS: VANCOMYCIN HCL 250 MG/5ML POSYG PO SCH ×5 (00:09→23:39)
[2016-08-16] MEDS: ALBUMIN HUMAN 25% 100 ML IV SCH (00:10)
[2016-08-16] MEDS: INSULIN ASPART [NOVOLOG] 3 ML PEN SC SCH ×6 (01:06→21:00)
[2016-08-16 04:38] LABS: ADD SCAN DIFF NO
[2016-08-16 04:42] LABS: BASOPHILS % 0.2 % (0.0-2.0); EOSINOPHILS # 0.3 10^3/ul (0.0-0.5); EOSINOPHILS % 3.4 % (0.0-7.0); HEMOGLOBIN 7.6 g/dl (14.0-18.0); LYMPHOCYTES # 1.3 10^3/ul (0.8-2.9); LYMPHOCYTES % 15.1 % (15.0-51.0); MEAN CORPUSCULAR HEMOGLOBIN 35.5 pg (29.0-33.0); MEAN CORPUSCULAR HGB CONC 30.4 g/dl (32.0-37.0); MEAN CORPUSCULAR VOLUME 116.8 fl (82.0-101.0); MONOCYTE # 0.7 10^3/ul (0.3-0.9); NEUTROPHIL # 6.4 10^3/ul (1.6-7.5); NEUTROPHILS % 72.3 % (39.0-77.0); PLATELET COUNT 245 10^3/UL (140-415); RED BLOOD COUNT 2.14 10^6/ul (4.70-6.10); RED CELL DISTRIBUTION WIDTH 17.9 % (11.5-14.5); WHITE BLOOD COUNT 8.9 10^3/ul (4.8-10.8)
[2016-08-16 04:53] LABS: POTASSIUM 3.2 mmol/L (3.5-5.1)
[2016-08-16 04:55] LABS: CREATININE 3.15 mg/dl (0.61-1.24)
[2016-08-16 04:56] LABS: CALCIUM 9.7 mg/dl (8.4-10.2); PHOSPHORUS 3.2 mg/dl (2.5-4.9)
[2016-08-16 04:57] LABS: MAGNESIUM 2.5 mg/dl (1.7-2.5)
[2016-08-16] MEDS: PANTOPRAZOLE (EC) 40 MG TAB PO SCH (05:41)
--- NOTE | 2016-08-16 08:42 | PN ---
DATE: 08/16/2016 CARDIOLOGY FOLLOWUP SUBJECTIVE: The patient remains intubated, still remains on the trach on the vent in the ICU. Yazan neumann in atrial fibrillation. Rhythm strip was reviewed and has episodes of idioventricular rhythm/slow . The patient also continues to have diarrhea. He also still continues to be hypotensive and is still on a Levophed drip. Patient is nonverbal. MEDICATIONS: Reviewed, as per medication reconciliation, personally reviewed. PHYSICAL EXAMINATION: VITAL SIGNS: Temperature 98.7, T-max is 99.2, heart rate of 87, blood pressure of 95/59, respirator y rate of 19. HEENT: Normocephalic, atraumatic. Pupils are equal. Obese gentleman. NECK: Supple. Tracheostomy, on the vent. CARDIOVASCULAR: Irregularly irregular, a systolic murmur. PULMONARY: Mild rhonchi. GASTROINTESTINAL: Obese, soft. Status post PEG placement. EXTREMITIES: Positive for diffuse lower extremity edema. NEUROLOGIC: Awake. Follows basic commands and closed eyes per request. PSYCHIATRIC: Appears to be calm now. DERMATOLOGIC: No active bleeding site. LABORATORY: WBC of 8.9, hemoglobin 7.6, platelets of 245. Sodium 143, potassium 3.2, BUN 43, creat inine 3.15, glucose of 171, magnesium is 2.5. ASSESSMENT AND PLAN: 1. Hypoxemia respiratory failure, status post tracheostomy. 2. Pneumonia, sepsis, shock. 3. Renal failure, on dialysis. 4. Atrial fibrillation. 5. Aortic stenosis. 6. History of hypertension, currently hypotensive. 7. Anemia. 8. Coagulopathy. 9. Dysphagia. 10. Diarrhea. 11. abnormality. 12. Hyperkalemia. 13. Multiple decubitus ulcers. RECOMMENDATIONS: Antibiotic is managed as per internal medicine and ID recommendations. Continue w ith vent support. Continue with heart rate control. Follow up on the INR and adjust the Coumadin a s needed. Electrolytes, including potassium, will be replaced. Will continue with the ICU care. L evophed to be continued, but try to titrate off if possible. Dictated By: THOM DURAN MD AV/ODALYS Conf#: [id number] DID#: [id number]
[2016-08-16] MEDS: COLLAGENASE 30 GM TUBE TOP SCH (09:00)
[2016-08-16] MEDS ORDERED: POTASSIUM CHLORIDE 20 MEQ POWDER FOR ORAL SOLN GTB ONE (09:00)
[2016-08-16] MEDS: PAROXETINE 20 MG TAB GTB SCH (09:48)
[2016-08-16] MEDS: FAMOTIDINE 20 MG TAB GTB SCH (09:48)
[2016-08-16] MEDS: CHOLECALCIFEROL 2,000 UNIT CAP GTB SCH (09:48)
[2016-08-16] MEDS: MULTIVIT/CA CARB/B CMPLX/FA TAB GTB SCH (09:48)
[2016-08-16] MEDS: ASCORBIC ACID 250 MG TAB GTB SCH (09:48)
[2016-08-16] MEDS: FLUTICASONE 0.05% 16 GM NAS SPRAY NASAL SCH (09:50)
--- NOTE | 2016-08-16 09:53 | PN ---
DATE: 08/16/2016 SUBJECTIVE: The patient is critically ill, on pressor support. The patient also continues to have a significant decubitus wound, without improvement. No other events noted. No hemoptysis, hemateme sis or hematochezia. OBJECTIVE: VITAL SIGNS: Blood pressure 106/58, respirations 16, pulse 66, temperature 98.7. I's and O's were reviewed. HEENT: Head is normocephalic. NECK: Supple. HEART: Regular rate. LUNGS: Showed diminished breath sounds at the base. ABDOMEN: Soft, positive PEG. EXTREMITIES: Negative for clubbing or cyanosis. No edema. DERMATOLOGIC: No rashes. MUSCULOSKELETAL: Positive decubitus wound. NEUROLOGIC: No change in exam. MEDICATIONS: Patient's medications were reviewed. LABORATORY DATA: Shows sodium 143, potassium 3.2, chloride 104, BUN 43, creatinine 3.15. White cou nt 8.9, hemoglobin 7.6, hematocrit 25.0, platelet count 245. The patient's blood cultures with gram -positive cocci in clusters noted. ASSESSMENT AND PLAN: 1. Septic shock. Etiology is multifactorial secondary to healthcare-associated pneumonia, decubitu s wound and C. difficile colitis. The patient is currently on antibiotics, oral vancomycin. Will c ontinue the current treatment plan, continue IV hydration with albumin. Follow up with infectious d isrobert. 2. Ventilator-dependent respiratory failure. Vent settings have been reviewed. ABG has been revie wed. Continue to monitor. 3. End-stage renal disease. Plan for hemodialysis today for 3 hours on a 4K bath, calcium 2.5. 4. Hypokalemia. Replete with potassium chloride 40 mEq p.o. x1. Will dialyze the patient with a h igh potassium bath. 5. Hyponatremia. Improved. Continue free water flushes. 6. Anemia of chronic disease. Continue to monitor hemoglobin and hematocrit levels. Continue Epog en. Will transfuse as needed. 7. Mineral bone disorder. Continue to monitor calcium and phosphorus levels. 8. Diabetes. Continue Accu-Cheks and insulin sliding scale. 9. Dysphagia. Status post PEG. Continue tube feeding. 10. C. difficile colitis. Continue oral vancomycin. 11. Decubitus wound. Will place a general surgical consult with Dr. Dietrich for evaluation. Viviana nue offloading and wound care. 12. Atrial fibrillation. Rate controlled. Continue the current medical management. Continue Coum rika. 13. Acute on chronic encephalopathy. Etiology is toxic metabolic. 14. Volume overload secondary to sepsis, capillary leak, and end-stage renal disease. The patient remains in shock. Will continue to minimize with ultrafiltration dialysis. Monitor closely. 15. Gastrointestinal and deep venous thrombosis prophylaxis. Continue PPI and Coumadin. Please note, I spent over 40 minutes of critical care time with this patient. Dictated By: JENNIFER TAFOYA DO NR/ODALYS Conf#: [id number] DID#: [id number]
--- NOTE | 2016-08-16 10:35 | CONS ---
Date/Time of Note Date/Time of Note DATE: 08/16/16 TIME: 10:33 Consult Date/Type/Reason Admit Date/Time Aug 08, 2016 at 11:44 Initial Consult Date 08/09/16 Type of Consultation: pulmonary Ordering Provider: JENNIFER TAFOYA DO Subjective Patient continues mechanical ventilation no significant changes Continues vasopressor support Remains largely somnolent Objective Vital Signs Date Time Temp Pulse Resp B/P Pulse Ox O2 Delivery O2 Flow Rate FiO2 08/16/16 10:00 17 91/61 100 08/16/16 09:00 Mechanical Ventilator 08/16/16 08:30 30 08/16/16 08:00 98.2 08/16/16 05:17 87 Intake and Output 08/15/16 08/15/16 08/16/16 15:00 23:00 07:00 Intake Total 1478.19 ml 1389.14 ml 1059.98 ml Balance 1478.19 ml 1389.14 ml 1059.98 ml Exam PHYSICAL EXAMINATION GENERAL: Elderly gentleman, tracheostomy on mechanical ventilation VITAL SIGNS: see below. HEENT: Pupils equal, round, and reactive to light. Tracheostomy site clean and intact. CARDIAC: S1, S2, distant heart sounds CHEST: Diminished air entry bilaterally. ABDOMEN: Mildly distended. Pulses present no guarding or rebound EXTREMITIES: No cyanosis, clubbing edema +2 NEUROLOGIC: Unable to assess Results/Medications Result Diagram: 08/16/16 0330 08/16/16 0330 Results 24 hrs Laboratory Tests Test 08/15/16 12:40 08/15/16 14:50 08/15/16 17:15 08/15/16 20:34 Bedside Glucose 217 200 173 Sodium Level 143 Potassium Level 3.5 Chloride Level 106 Carbon Dioxide Level 25 Anion Gap 16 Blood Urea Nitrogen 39 H Creatinine 2.95 H Glucose Level 173 Calcium Level 9.9 Test 08/16/16 01:02 08/16/16 03:30 08/16/16 05:41 08/16/16 09:51 Bedside Glucose 178 190 158 White Blood Count 8.9 Red Blood Count 2.14 L Hemoglobin 7.6 L Hematocrit 25.0 L Mean Corpuscular Volume 116.8 H Mean Corpuscular Hemoglobin 35.5 H Mean Corpuscular Hemoglobin Concent 30.4 L Red Cell Distribution Width 17.9 H Platelet Count 245 Mean Platelet Volume 10.0 Neutrophils % 72.3 Lymphocytes % 15.1 Monocytes % 8.0 Eosinophils % 3.4 Basophils % 0.2 Nucleated Red Blood Cells % 0.0 Neutrophils # 6.4 Lymphocytes # 1.3 Monocytes # 0.7 Eosinophils # 0.3 Basophils # 0.0 Nucleated Red Blood Cells # 0.0 Sodium Level 143 Potassium Level 3.2 L Chloride Level 104 Carbon Dioxide Level 26 Anion Gap 16 Blood Urea Nitrogen 43 H Creatinine 3.15 H Glucose Level 171 Calcium Level 9.7 Phosphorus Level 3.2 Magnesium Level 2.5 Random Vancomycin Level 15.9 Medications Current Medications Cholecalciferol (Vitamin D) 2,000 unit DAILY GTB Last administered on 09:48; Admin Dose 2,000 UNIT; Start 08/09/16 at 09:00 Famotidine (Pepcid) 20 mg DAILY GTB Last administered on 08/16/16 09:48; Admin Dose 20 MG; Start 08/09/16 at 09:00 Fluticasone Propionate (Flonase 0.05% Nasal) 1 spray DAILY NASAL Last administered on 08/16/16 09:50; Admin Dose 1 SPRAY; Start 08/09/16 at 09:00 Multivit/Ca Carb/ B Cmplx/FA/Prenat (Magui-Cedric) 1 tab DAILY GTB Last administered on 08/16/16 09:48; Admin Dose 1 TAB; Start 08/09/16 at 09:00 Ondansetron HCl (Zofran (Ped)) 4 mg Q6H PRN GTB NAUSEA AND/OR VOMITING; Start 08/08/16 at 13:00 Paroxetine HCl (Paxil) 20 mg DAILY GTB Last administered on 08/16/16 09:48; Admin Dose 20 MG; Start 08/09/16 at 09:00 Senna (Senokot) 2 tab hs GTB Last administered on 08/15/16 20:11; Admin Dose 2 TAB; Start 08/08/16 at 21:00 Warfarin Sodium (Coumadin) 4 mg DAILY@17 GTB Last administered on 08/15/16 17: 21; Admin Dose 4 MG; Start 08/09/16 at 17:00; Status Future hold Acetaminophen (Tylenol Liquid) 650 mg Q4H PRN GTB PAIN AND OR ELEVATED TEMP; Start 08/08/16 at 12:41 Ascorbic Acid (Vitamin C) 250 mg DAILY GTB Last administered on 08/16/16 09:48 ; Admin Dose 250 MG; Start 08/09/16 at 09:00 Bisacodyl (Dulcolax Supp) 10 mg DAILY PRN [place] CONSTIPATION; Start 08/08/16 at 13 :00 Atorvastatin Calcium (Lipitor) 20 mg DAILY@21 PO Last administered on 20:11; Admin Dose 20 MG; Start 08/09/16 at 21:00 Miscellaneous Information 1 ea NOTE XX ; Start 08/08/16 at 21:00 Glucose (Glutose) 15 gm Q15M PRN PO DECREASED GLUCOSE; Start 08/08/16 at 21:00 Glucose (Glutose) 22.5 gm Q15M PRN PO DECREASED GLUCOSE; Start 08/08/16 at 21: 00 Dextrose (D50w Syringe) 25 ml Q15M PRN IV DECREASED GLUCOSE; Start 08/08/16 at 21:00 Dextrose (D50w Syringe) 50 ml Q15M PRN IV DECREASED GLUCOSE; Start 08/08/16 at 21:00 Glucagon (Glucagen) 1 mg Q15M PRN IM DECREASED GLUCOSE; Start 08/08/16 at 21:00 Glucose (Glutose) 15 gm Q15M PRN BUCCAL DECREASED GLUCOSE; Start 08/08/16 at 21 :00 Insulin Aspart (Novolog Insulin Pen) NOVOLOG *MILD* ALGORI... Q4 SC Last administered on 08/16/16 10:00; Admin Dose 2 UNIT; Start 08/09/16 at 09:00 Collagenase 1 applic 1 applic DAILY TOP Last administered on 08/15/16 09:01; Admin Dose 1 APPLIC; Start 08/09/16 at 21:00 Norepinephrine/ Dextrose (Levophed/D5W) 500 ml @ 1.87 mls/hr TITRATE IV Last administered on 08/15/16 19:34; Admin Dose 7.5 MLS/HR; Start 08/11/16 at 18:00 Vancomycin HCl (Vancomycin Oral Syringe) 250 mg Q6 PO Last administered on 08/16 05:41; Admin Dose 250 MG; Start 08/12/16 at 18:00 Amikacin Sulfate (Amikacin Iv Per Pharmacy) AMIKACIN PER PHARMACY NOTE XX ; Start 08/12/16 at 16:30 Pantoprazole (Protonix Tab) 40 mg DAILY@06 PO Last administered on 08/16/16 05 :41; Admin Dose 40 MG; Start 08/14/16 at 09:00 Insulin Glargine 12 unit 12 unit QHS SC Last administered on 08/15/16 20:38; Admin Dose 12 UNIT; Start 08/15/16 at 21:00 Vancomycin HCl/ Sodium Chloride (Vancocin/NS) 250 ml @ 83.333 mls/ hr ONCE ONCE IVPB ; Start 08/16/16 at 17:00; Stop 08/16/16 at 19:59 Assessment/Plan Chief Complaint/Hosp Course IMPRESSION 1. Chronic respiratory failure. 2. History of encephalopathy. 3. No evidence for adrenal insufficiency with a cortisol 24. 4. Dysphagia with G-tube. 5. Significant anemia hemoglobin 7. 6 currently no active GI bleeding 7. Septic shock still requiring vasopressor support PLAN: 1. Continue antibiotics. 2. Vent support. 3. Tube feeding. 4. Transfusion 1 unit packed red blood cells 5. Decrease vasopressors as tolerated Disposition Consider palliative care consult Problems: SHANI FAY MD, [facility] Aug 16, 2016 10:35
[2016-08-16 10:53] LABS: INR 1.89; PROTIME 21.9 Sec (12.2-14.2); PT RATIO 1.7
--- NOTE | 2016-08-16 13:06 | PN ---
DATE: 08/16/2016 SUBJECTIVE: No acute changes. The patient is lying comfortably in bed, off Levophed drip. No feve rs. MICROBIOLOGY: Blood cultures from 08/14/2016 growing staph species 1 out of 2 sets. I believe this was drawn with hemodialysis from [place]. ANTIMICROBIALS: The patient is on vancomycin IV, p.o. and amikacin. INDWELLINGS: Trach, PEG, right femoral triple lumen catheter and right IJ Perm-A-Cath. LABORATORY DATA: WBC 8.9, H and H 7.6 and 25, platelets 245. PHYSICAL EXAMINATION: GENERAL: Morbidly obese, well-developed elderly man who is lying comfortably in bed. HEENT: Head atraumatic, normocephalic. Sclerae anicteric. Buccal mucosa dry. NECK: Obese. CHEST: Rise symmetrical. Breath sounds diminished to bases. HEART: S1, S2. ABDOMEN: Obese, bowel tones present. EXTREMITIES: No cyanosis. Bilateral edema. ASSESSMENT: 1. Septic shock with possible line sepsis. 2. Staph bacteremia. 3. Clostridium difficile colitis. 4. Multiple chronic wounds. 5. End-stage renal disease, hemodialysis dependent. 6. Status post pneumonia. PLAN: The patient remains unchanged on appropriate antimicrobials. He is FULL CODE. We will isreal nue him on current regimen and consider Perm-A-Cath change. Dictated By: SLAVA CHILDRESS WARDROBE MANAGER for MEKA MATOS/NTS Conf#: [id number] DID#: [id number]
[2016-08-16] MEDS ORDERED: VANCOMYCIN 1.5 GM in SOD CHLORIDE 0.9% 250 ML IVPB ONE (17:00)
--- NOTE | 2016-08-16 17:27 | RADRPT ---
PROCEDURE: Ultrasound guidance for placement of needle in left upper extremity vein. CLINICAL INDICATION: Venous access. TECHNIQUE: Limited sonography of the left upper extremity was performed. Ultrasound images were recorded and s tored in the patient's medical record. COMPARISON: None. FINDINGS: The ultrasound images demonstrate a patent left upper extremity vein. The PICC line was inserted by the PICC line nurse. IMPRESSION: 1. Ultrasound guidance for a needle placement in a left upper extremity vein. 2. The left upper extremity vein is patent. RPTAT: QQ .Heladio Farrell MD, MD Date Time Electronically viewed and signed by .Heladio Farrell MD, MD on 08/16/2016 17:27 .R/
[2016-08-16] MEDS ORDERED: SOD CHLORIDE 0.9% 100 ML ONE (17:42)
[2016-08-16] MEDS: AMIKACIN 500 MG in SOD CHLORIDE 0.9% 100 ML IVPB SCH (18:45)
[2016-08-16] MEDS: WARFARIN 2 MG TAB GTB SCH (18:46)
[2016-08-16] MEDS ORDERED: ALTEPLASE (CATHFLO) 2 MG INJ CATHETER PRN (19:00)
[2016-08-16] MEDS: ATORVASTATIN 20 MG TAB PO SCH (20:57)
[2016-08-16] MEDS: SENNA TAB GTB SCH (20:57)
[2016-08-16] MEDS: INSULIN GLARGINE [LANtus] 3 ML PEN SC SCH (21:01)
[2016-08-17] VITALS (38 sets, daily range): BP systolic 80–166; BP diastolic 10–140; PULSE 56–75; RESP 12–22
[2016-08-17] MEDS: INSULIN ASPART [NOVOLOG] 3 ML PEN SC SCH ×6 (00:34→21:00)
[2016-08-17] MEDS: PANTOPRAZOLE (EC) 40 MG TAB PO SCH (05:53)
[2016-08-17] MEDS: VANCOMYCIN HCL 250 MG/5ML POSYG PO SCH ×3 (05:53→17:44)
[2016-08-17 06:38] LABS: ADD SCAN DIFF NO
[2016-08-17 06:54] LABS: ALBUMIN 3.1 g/dl (3.3-4.9); POTASSIUM 3.5 mmol/L (3.5-5.1)
[2016-08-17 06:56] LABS: BILIRUBIN,INDIRECT 0.1 mg/dl (0-1.1); BILIRUBIN,TOTAL 0.1 mg/dl (0.2-1.3); CREATININE 2.54 mg/dl (0.61-1.24)
[2016-08-17 06:57] LABS: ALBUMIN/GLOBULIN RATIO 1.06; CALCIUM 9.6 mg/dl (8.4-10.2); INR 1.76; MAGNESIUM 2.3 mg/dl (1.7-2.5); PROTIME 20.7 Sec (12.2-14.2); PT RATIO 1.6
[2016-08-17 07:07] LABS: BASOPHILS % 0.3 % (0.0-2.0); EOSINOPHILS # 0.1 10^3/ul (0.0-0.5); EOSINOPHILS % 1.5 % (0.0-7.0); HEMOGLOBIN 8.6 g/dl (14.0-18.0); LYMPHOCYTES # 1.1 10^3/ul (0.8-2.9); LYMPHOCYTES % 12.3 % (15.0-51.0); MEAN CORPUSCULAR HGB CONC 30.7 g/dl (32.0-37.0); MEAN CORPUSCULAR VOLUME 117.2 fl (82.0-101.0); MEAN PLATELET VOLUME 10.5 fl (7.4-10.4); MONOCYTE # 0.7 10^3/ul (0.3-0.9); MONOCYTES % 7.7 % (0.0-11.0); NEUTROPHIL # 6.9 10^3/ul (1.6-7.5); NEUTROPHILS % 77.4 % (39.0-77.0); PLATELET COUNT 228 10^3/UL (140-415); RED BLOOD COUNT 2.39 10^6/ul (4.70-6.10); RED CELL DISTRIBUTION WIDTH 17.3 % (11.5-14.5); WHITE BLOOD COUNT 8.9 10^3/ul (4.8-10.8)
--- NOTE | 2016-08-17 08:52 | PN ---
DATE: 08/17/2016 SUBJECTIVE: The patient is stable. No acute events overnight. The patient was taken off pressor s upport. No other acute events. No hemoptysis, hematemesis or hematochezia. OBJECTIVE: VITAL SIGNS: Blood pressure is 114/62, respirations 18, pulse 71, temperature 97.4. HEENT: Head is normocephalic. NECK: Supple. HEART: Regular rate. LUNGS: Showed diminished breath sounds at the base. ABDOMEN: Soft, nontender to palpation. No rebound or guarding. EXTREMITIES: Negative for clubbing or cyanosis. No edema. DERMATOLOGIC: No rashes. MUSCULOSKELETAL: Have no joint effusion. NEUROLOGIC: No change in exam. MEDICATIONS: The patient's medications have been reviewed. LABORATORY DATA: Shows sodium 146, potassium 3.5, chloride 107, BUN 32, creatinine 2.54. White cou nt 8.9, hemoglobin 8.6, hematocrit 28.0, platelet count 228. ASSESSMENT AND PLAN: 1. Sepsis status post shock. Etiology is multifactorial secondary to healthcare-associated pneumon ia, Clostridium difficile colitis, and possible line sepsis. The patient's cultures from his PermCa th apparently grew out Staph aureus. The patient, however, has clinically responded to antibiotic t herapy, is currently off pressor support. At this point, continue the current treatment plan, isreal nue antibiotics. Will follow up cultures. Will discuss with infectious disease if the patient's Pe rmCath needs to be removed or if the line can be salvaged. 2. Ventilatory-dependent respiratory failure. Vent settings have been reviewed. ABG has been revi ewed. Continue to monitor. 3. End-stage renal disease. The patient has dialysis on Saturday, , Saturday. The patient h ad hemodialysis yesterday and tolerated it well. Anticipate dialysis tomorrow. 6. Hyperkalemia. Improved. Continue to monitor. 7. Hypernatremia. Will increase free water flushes to 400 mL q.4h. and monitor closely. 8. Anemia of chronic disease. Continue to monitor H and H levels. Continue Epogen with dialysis. 9. Mineral bone disorder. Continue to monitor calcium and phosphorus levels. 10. Diabetes. Continue Accu-Cheks and insulin sliding scale. 11. Dysphagia. Status post PEG. Continue tube feeding. 12. Clostridium difficile colitis. Continue oral vancomycin. 13. Decubitus wound. General surgery consult was completed with Dr. Pierre Dietrich for evaluation. C ontinue offloading. Continue wound care. 14. Atrial fibrillation, rate controlled. Continue the current medical management. Continue Couma din, being adjusted by cardiology. 15. Volume overload secondary to sepsis and capillary leak. Improving. Continue ultrafiltration d ialysis. 16. Gastrointestinal and deep venous thrombosis prophylaxis. Continue proton pump inhibitor and Co umadin. Dictated By: JENNIFER TAFOYA DO NR/NTS Conf#: [id number] DID#: [id number]
[2016-08-17] MEDS: CHOLECALCIFEROL 2,000 UNIT CAP GTB SCH (08:53)
[2016-08-17] MEDS: ASCORBIC ACID 250 MG TAB GTB SCH (08:53)
[2016-08-17] MEDS: MULTIVIT/CA CARB/B CMPLX/FA TAB GTB SCH (08:53)
[2016-08-17] MEDS: PAROXETINE 20 MG TAB GTB SCH (08:53)
[2016-08-17] MEDS: FAMOTIDINE 20 MG TAB GTB SCH (08:53)
[2016-08-17] MEDS: FLUTICASONE 0.05% 16 GM NAS SPRAY NASAL SCH (08:53)
--- NOTE | 2016-08-17 10:17 | PN ---
DATE: 08/17/2016 CARDIOLOGY FOLLOWUP SUBJECTIVE: Discussed with the staff. Rhythm strip was reviewed. The patient remains in atrial fi brillation. Heart rate has remained stable, under good control. The patient is more responsive. S tatus post trach, on the vent. Currently off Levophed now. MEDICATIONS: Reviewed. PHYSICAL EXAMINATION: VITAL SIGNS: Temperature 98, heart rate of 64, blood pressure 114/65, respiratory rate of 18. HEENT: Normocephalic, atraumatic. Pupils are equal. An obese gentleman. Pupils are equal and rou nd. NECK: Status post tracheostomy, on the vent. CARDIOVASCULAR: Irregularly irregular, systolic murmur. PULMONARY: Anteriorly with mild rhonchi, diffuse. GASTROINTESTINAL: Obese, soft, status post PEG placement. No rebound or guarding. EXTREMITIES: Positive for diffuse lower extremity edema. NEUROLOGIC: He is awake, opens his eyes. Follows commands with his eyes. LABORATORY DATA: WBC of 8.9, hemoglobin 8.6, platelets of 228. INR this morning is 1.74. WBC of 8 .9, hemoglobin 8.6, platelets of 228. Sodium 146, potassium 3.5, BUN of 32, creatinine 2.54, glucos e of 159. ASSESSMENT AND PLAN: 1. Status post septic shock. Currently blood pressure has improved, off pressors now. 2. Hypoxemic respiratory failure, status post tracheostomy, vent dependent. 3. Atrial fibrillation. Anticoagulation, heart rate controlled. 4. Pneumonia. 5. History of aortic stenosis. 6. Hypertension. 7. Anemia. 8. Dysphagia. 9. Diarrhea. 10. Electrolyte abnormalities and hypokalemia. RECOMMENDATIONS: Antibiotics managed as per ID's recommendations. Coumadin to be adjusted to keep INR between 2 and 3 for now, as long as there is no bleeding. Respiratory care will be continued. Currently the patient is off pressors. Electrolytes and potassium will be replaced as needed. Dictated By: THOM HUSAIN/ODALYS Conf#: [id number] DID#: [id number] CC: JENNIFER TAFOYA DO;*EndCC*
--- NOTE | 2016-08-17 10:48 | CONS ---
Date/Time of Note Date/Time of Note DATE: 08/17/16 TIME: 10:43 Assessment/Plan Assessment/Plan Additional Assessment/Plan Ventilator settings are AC of 16, tidal volume 550, PEEP of 5, 30% FiO2. Assessment recommendations; 1. Patient admitted for sepsis and hypotension with interval improvement. 2. End-stage renal disease, on hemodialysis. 3. Anemia. 4. History of anoxic brain injury. Patient remains ventilator dependent. Continue current supportive care. Overall prognosis remains poor. Consultation Date/Type/Reason Admit Date/Time Aug 08, 2016 at 11:44 Initial Consult Date 08/09/16 Type of Consultation: pulmonary Referring Provider: JENNIFER TAFOYA DO 24 HR Interval Summary Free Text/Dictation Patient condition remains stable. He is off pressor support. Because of advanced anoxic brain injury patient is awake but unresponsive to any commands. Has remained hemodynamically stable. General exam; elderly male, morbidly obese, on ventilator via tracheostomy awake but unresponsive. Currently in no distress. Exam/Review of Systems Vital Signs Vitals Vital Signs Date Time Temp Pulse Resp B/P Pulse Ox O2 Delivery O2 Flow Rate FiO2 08/17/16 10:00 66 18 124/81 100 08/17/16 08:00 Mechanical Ventilator 08/17/16 08:00 30 08/17/16 07:30 98.0 Intake and Output 08/16/16 08/16/16 08/17/16 15:00 23:00 07:00 Intake Total 1195 ml 1531.999 ml 628.333 ml Output Total 1800 ml Balance 1195 ml -268.001 ml 628.333 ml Exam HEENT exam; supple neck, JVD difficult to see because of short neck, tracheostomy in place. It was a equal bilaterally and reactive to light. Dentition is fair. Chest examination; diminished breath sounds throughout. S1-S2 audible, no murmurs. Regular rhythm. Abdomen exam is; is protuberant, G-tube in place. Bowel sounds audible. Extremity examination; no peripheral edema. Patient has chronic appearing skin changes in both lower extremities. GARLAND MAKER examination of Oleg[place] which is awake but does not follow any commands. Results Result Diagram: 08/17/16 0520 08/17/16 0520 Results 24 hrs Laboratory Tests Test 08/16/16 12:06 08/16/16 17:50 08/16/16 20:58 08/17/16 00:30 Bedside Glucose 159 178 187 145 Test 08/17/16 05:20 08/17/16 05:49 08/17/16 09:06 White Blood Count 8.9 Red Blood Count 2.39 L Hemoglobin 8.6 L Hematocrit 28.0 L Mean Corpuscular Volume 117.2 H Mean Corpuscular Hemoglobin 36.0 H Mean Corpuscular Hemoglobin Concent 30.7 L Red Cell Distribution Width 17.3 H Platelet Count 228 Mean Platelet Volume 10.5 H Neutrophils % 77.4 H Lymphocytes % 12.3 L Monocytes % 7.7 Eosinophils % 1.5 Basophils % 0.3 Nucleated Red Blood Cells % 0.0 Neutrophils # 6.9 Lymphocytes # 1.1 Monocytes # 0.7 Eosinophils # 0.1 Basophils # 0.0 Nucleated Red Blood Cells # 0.0 Prothrombin Time 20.7 H Prothrombin Time Ratio 1.6 INR International Normalized Ratio 1.76 Sodium Level 146 H Potassium Level 3.5 Chloride Level 107 Carbon Dioxide Level 26 Anion Gap 17 H Blood Urea Nitrogen 32 #H Creatinine 2.54 H Glucose Level 159 Calcium Level 9.6 Phosphorus Level 2.9 Magnesium Level 2.3 Total Bilirubin 0.1 L Direct Bilirubin 0.00 Indirect Bilirubin 0.1 Aspartate Amino Transf (AST/SGOT) 15 Alanine Aminotransferase (ALT/SGPT) 15 Alkaline Phosphatase 116 Total Protein 6.0 L Albumin 3.1 L Globulin 2.90 Albumin/Globulin Ratio 1.06 Bedside Glucose 153 153 Medications Medications Current Medications Cholecalciferol (Vitamin D) 2,000 unit DAILY GTB Last administered on 08:53; Admin Dose 2,000 UNIT; Start 08/09/16 at 09:00 Famotidine (Pepcid) 20 mg DAILY GTB Last administered on 08/17/16 08:53; Admin Dose 20 MG; Start 08/09/16 at 09:00 Fluticasone Propionate (Flonase 0.05% Nasal) 1 spray DAILY NASAL Last administered on 08/17/16 08:53; Admin Dose 1 SPRAY; Start 08/09/16 at 09:00 Multivit/Ca Carb/ B Cmplx/FA/Prenat (Magui-Cedric) 1 tab DAILY GTB Last administered on 08/17/16 08:53; Admin Dose 1 TAB; Start 08/09/16 at 09:00 Ondansetron HCl (Zofran (Ped)) 4 mg Q6H PRN GTB NAUSEA AND/OR VOMITING; Start 08/08/16 at 13:00 Paroxetine HCl (Paxil) 20 mg DAILY GTB Last administered on 08/17/16 08:53; Admin Dose 20 MG; Start 08/09/16 at 09:00 Senna (Senokot) 2 tab hs GTB Last administered on 08/16/16 20:57; Admin Dose 2 TAB; Start 08/08/16 at 21:00 Acetaminophen (Tylenol Liquid) 650 mg Q4H PRN GTB PAIN AND OR ELEVATED TEMP; Start 08/08/16 at 12:41 Ascorbic Acid (Vitamin C) 250 mg DAILY GTB Last administered on 08/17/16 08:53 ; Admin Dose 250 MG; Start 08/09/16 at 09:00 Bisacodyl (Dulcolax Supp) [address] CONSTIPATION; Start 08/08/16 at 13 :00 Atorvastatin Calcium (Lipitor) 20 mg DAILY@21 PO Last administered on 20:57; Admin Dose 20 MG; Start 08/09/16 at 21:00 Miscellaneous Information 1 ea NOTE XX ; Start 08/08/16 at 21:00 Glucose (Glutose) 15 gm Q15M PRN PO DECREASED GLUCOSE; Start 08/08/16 at 21:00 Glucose (Glutose) 22.5 gm Q15M PRN PO DECREASED GLUCOSE; Start 08/08/16 at 21: 00 Dextrose (D50w Syringe) 25 ml Q15M PRN IV DECREASED GLUCOSE; Start 08/08/16 at 21:00 Dextrose (D50w Syringe) 50 ml Q15M PRN IV DECREASED GLUCOSE; Start 08/08/16 at 21:00 Glucagon (Glucagen) 1 mg Q15M PRN IM DECREASED GLUCOSE; Start 08/08/16 at 21:00 Glucose (Glutose) 15 gm Q15M PRN BUCCAL DECREASED GLUCOSE; Start 08/08/16 at 21 :00 Insulin Aspart (Novolog Insulin Pen) NOVOLOG *MILD* ALGORI... Q4 SC Last administered on 08/17/16 09:10; Admin Dose 1 UNIT; Start 08/09/16 at 09:00 Collagenase 1 applic 1 applic DAILY TOP Last administered on 08/15/16 09:01; Admin Dose 1 APPLIC; Start 08/09/16 at 21:00 Norepinephrine/ Dextrose (Levophed/D5W) 500 ml @ 1.87 mls/hr TITRATE IV Last administered on 08/15/16 19:34; Admin Dose 7.5 MLS/HR; Start 08/11/16 at 18:00 Vancomycin HCl (Vancomycin Oral Syringe) 250 mg Q6 PO Last administered on 08/17 05:53; Admin Dose 250 MG; Start 08/12/16 at 18:00 Amikacin Sulfate (Amikacin Iv Per Pharmacy) AMIKACIN PER PHARMACY NOTE XX ; Start 08/12/16 at 16:30 Pantoprazole (Protonix Tab) 40 mg DAILY@06 PO Last administered on 08/17/16 05 :53; Admin Dose 40 MG; Start 08/14/16 at 09:00 Insulin Glargine (Lantus) 14 unit QHS SC ; Start 08/17/16 at 21:00 Warfarin Sodium (Coumadin) 5 mg DAILY@17 GTB ; Start 08/17/16 at 17:00 GELY FU Aug 17, 2016 10:48
--- NOTE | 2016-08-17 11:17 | CONS ---
Date/Time of Note Date/Time of Note DATE: 08/17/16 TIME: 11:14 Assessment/Plan Assessment/Plan Chief Complaint/Hosp Course SUBJECTIVE: No acute changes. The patient is lying comfortably in bed, off Levophed drip. No fevers. MICROBIOLOGY: Blood cultures from 08/14/2016 growing staph species 1 out of 2 sets. I believe this was drawn with hemodialysis from [place]. ANTIMICROBIALS: The patient is on vancomycin IV, p.o. and amikacin. INDWELLINGS: Trach, PEG, right femoral triple lumen catheter and right IJ Perm- A-Cath. LABORATORY DATA: WBC 8.9, H and H 7.6 and 25, platelets 245. PHYSICAL EXAMINATION: GENERAL: Morbidly obese, well-developed elderly man who is lying comfortably in bed. HEENT: Head atraumatic, normocephalic. Sclerae anicteric. Buccal mucosa dry. NECK: Obese. CHEST: Rise symmetrical. Breath sounds diminished to bases. HEART: S1, S2. ABDOMEN: Obese, bowel tones present. EXTREMITIES: No cyanosis. Bilateral edema. ASSESSMENT: 1. Septic shock with possible line sepsis. 2. Staph bacteremia. 3. Clostridium difficile colitis. 4. Multiple chronic wounds. 5. End-stage renal disease, hemodialysis dependent. 6. Status post pneumonia. PLAN: The patient remains unchanged, stable off pressors, will dc Amikacin, continue IV and PO Vanco, local wound care, repeat bld cx with next HD DW Dr Pereyra Problems: Consultation Date/Type/Reason Admit Date/Time Aug 08, 2016 at 11:44 Initial Consult Date 08/09/16 Type of Consultation: id Referring Provider: JENNIFER PEREYRA DO Exam/Review of Systems Vital Signs Vitals Vital Signs Date Time Temp Pulse Resp B/P Pulse Ox O2 Delivery O2 Flow Rate FiO2 08/17/16 10:00 66 18 124/81 100 08/17/16 08:00 Mechanical Ventilator 08/17/16 08:00 30 08/17/16 07:30 98.0 Intake and Output 08/16/16 08/16/16 08/17/16 15:00 23:00 07:00 Intake Total 1195 ml 1531.999 ml 663.333 ml Output Total 1800 ml 0 ml Balance 1195 ml -268.001 ml 663.333 ml Results Result Diagram: 08/17/16 0520 08/17/16 0520 Results 24 hrs Laboratory Tests Test 08/16/16 12:06 08/16/16 17:50 08/16/16 20:58 08/17/16 00:30 Bedside Glucose 159 178 187 145 Test 08/17/16 05:20 08/17/16 05:49 08/17/16 09:06 White Blood Count 8.9 Red Blood Count 2.39 L Hemoglobin 8.6 L Hematocrit 28.0 L Mean Corpuscular Volume 117.2 H Mean Corpuscular Hemoglobin 36.0 H Mean Corpuscular Hemoglobin Concent 30.7 L Red Cell Distribution Width 17.3 H Platelet Count 228 Mean Platelet Volume 10.5 H Neutrophils % 77.4 H Lymphocytes % 12.3 L Monocytes % 7.7 Eosinophils % 1.5 Basophils % 0.3 Nucleated Red Blood Cells % 0.0 Neutrophils # 6.9 Lymphocytes # 1.1 Monocytes # 0.7 Eosinophils # 0.1 Basophils # 0.0 Nucleated Red Blood Cells # 0.0 Prothrombin Time 20.7 H Prothrombin Time Ratio 1.6 INR International Normalized Ratio 1.76 Sodium Level 146 H Potassium Level 3.5 Chloride Level 107 Carbon Dioxide Level 26 Anion Gap 17 H Blood Urea Nitrogen 32 #H Creatinine 2.54 H Glucose Level 159 Calcium Level 9.6 Phosphorus Level 2.9 Magnesium Level 2.3 Total Bilirubin 0.1 L Direct Bilirubin 0.00 Indirect Bilirubin 0.1 Aspartate Amino Transf (AST/SGOT) 15 Alanine Aminotransferase (ALT/SGPT) 15 Alkaline Phosphatase 116 Total Protein 6.0 L Albumin 3.1 L Globulin 2.90 Albumin/Globulin Ratio 1.06 Bedside Glucose 153 153 Medications Medications Current Medications Cholecalciferol (Vitamin D) 2,000 unit DAILY GTB Last administered on 08:53; Admin Dose 2,000 UNIT; Start 08/09/16 at 09:00 Famotidine (Pepcid) 20 mg DAILY GTB Last administered on 08/17/16 08:53; Admin Dose 20 MG; Start 08/09/16 at 09:00 Fluticasone Propionate (Flonase 0.05% Nasal) 1 spray DAILY NASAL Last administered on 08/17/16 08:53; Admin Dose 1 SPRAY; Start 08/09/16 at 09:00 Multivit/Ca Carb/ B Cmplx/FA/Prenat (Magui-Cedric) 1 tab DAILY GTB Last administered on 08/17/16 08:53; Admin Dose 1 TAB; Start 08/09/16 at 09:00 Ondansetron HCl (Zofran (Ped)) 4 mg Q6H PRN GTB NAUSEA AND/OR VOMITING; Start 08/08/16 at 13:00 Paroxetine HCl (Paxil) 20 mg DAILY GTB Last administered on 08/17/16 08:53; Admin Dose 20 MG; Start 08/09/16 at 09:00 Senna (Senokot) 2 tab hs GTB Last administered on 08/16/16 20:57; Admin Dose 2 TAB; Start 08/08/16 at 21:00 Acetaminophen (Tylenol Liquid) 650 mg Q4H PRN GTB PAIN AND OR ELEVATED TEMP; Start 08/08/16 at 12:41 Ascorbic Acid (Vitamin C) 250 mg DAILY GTB Last administered on 08/17/16 08:53 ; Admin Dose 250 MG; Start 08/09/16 at 09:00 Bisacodyl (Dulcolax Supp) 10 mg DAILY PRN [place] CONSTIPATION; Start 08/08/16 at 13 :00 Atorvastatin Calcium (Lipitor) 20 mg DAILY@21 PO Last administered on 20:57; Admin Dose 20 MG; Start 08/09/16 at 21:00 Miscellaneous Information 1 ea NOTE XX ; Start 08/08/16 at 21:00 Glucose (Glutose) 15 gm Q15M PRN PO DECREASED GLUCOSE; Start 08/08/16 at 21:00 Glucose (Glutose) 22.5 gm Q15M PRN PO DECREASED GLUCOSE; Start 08/08/16 at 21: 00 Dextrose (D50w Syringe) 25 ml Q15M PRN IV DECREASED GLUCOSE; Start 08/08/16 at 21:00 Dextrose (D50w Syringe) 50 ml Q15M PRN IV DECREASED GLUCOSE; Start 08/08/16 at 21:00 Glucagon (Glucagen) 1 mg Q15M PRN IM DECREASED GLUCOSE; Start 08/08/16 at 21:00 Glucose (Glutose) 15 gm Q15M PRN BUCCAL DECREASED GLUCOSE; Start 08/08/16 at 21 :00 Insulin Aspart (Novolog Insulin Pen) NOVOLOG *MILD* ALGORI... Q4 SC Last administered on 08/17/16 09:10; Admin Dose 1 UNIT; Start 08/09/16 at 09:00 Collagenase 1 applic 1 applic DAILY TOP Last administered on 08/15/16 09:01; Admin Dose 1 APPLIC; Start 08/09/16 at 21:00 Norepinephrine/ Dextrose (Levophed/D5W) 500 ml @ 1.87 mls/hr TITRATE IV Last administered on 08/15/16 19:34; Admin Dose 7.5 MLS/HR; Start 08/11/16 at 18:00 Vancomycin HCl (Vancomycin Oral Syringe) 250 mg Q6 PO Last administered on 08/17 05:53; Admin Dose 250 MG; Start 08/12/16 at 18:00 Amikacin Sulfate (Amikacin Iv Per Pharmacy) AMIKACIN PER PHARMACY NOTE XX ; Start 08/12/16 at 16:30 Pantoprazole (Protonix Tab) 40 mg DAILY@06 PO Last administered on 08/17/16 05 :53; Admin Dose 40 MG; Start 08/14/16 at 09:00 Insulin Glargine (Lantus) 14 unit QHS SC ; Start 08/17/16 at 21:00 Warfarin Sodium (Coumadin) 5 mg DAILY@17 GTB ; Start 08/17/16 at 17:00 SLAVA CHILDRESS NP Aug 17, 2016 11:17
[2016-08-17] MEDS: COLLAGENASE 30 GM TUBE TOP SCH (12:39)
[2016-08-17] MEDS: WARFARIN 5 MG TAB GTB SCH (17:44)
[2016-08-17] MEDS: ATORVASTATIN 20 MG TAB PO SCH (21:10)
[2016-08-17] MEDS: SENNA TAB GTB SCH (21:10)
[2016-08-17] MEDS: INSULIN GLARGINE [LANtus] 3 ML PEN SC SCH (21:12)
[2016-08-18] VITALS (52 sets, daily range): BP systolic 108–159; BP diastolic 63–90; PULSE 39–81; RESP 8–21
[2016-08-18] MEDS: INSULIN ASPART [NOVOLOG] 3 ML PEN SC SCH ×6 (01:00→21:15)
[2016-08-18 05:02] LABS: ADD SCAN DIFF NO
[2016-08-18 05:05] LABS: BASOPHILS % 0.3 % (0.0-2.0); EOSINOPHILS # 0.2 10^3/ul (0.0-0.5); EOSINOPHILS % 2.4 % (0.0-7.0); HEMATOCRIT 24.4 % (42.0-52.0); HEMOGLOBIN 7.5 g/dl (14.0-18.0); LYMPHOCYTES # 1.3 10^3/ul (0.8-2.9); LYMPHOCYTES % 17.5 % (15.0-51.0); MEAN CORPUSCULAR HEMOGLOBIN 35.7 pg (29.0-33.0); MEAN CORPUSCULAR HGB CONC 30.7 g/dl (32.0-37.0); MEAN CORPUSCULAR VOLUME 116.2 fl (82.0-101.0); MEAN PLATELET VOLUME 10.5 fl (7.4-10.4); MONOCYTE # 0.7 10^3/ul (0.3-0.9); NEUTROPHIL # 5.3 10^3/ul (1.6-7.5); NEUTROPHILS % 69.9 % (39.0-77.0); PLATELET COUNT 224 10^3/UL (140-415); RED CELL DISTRIBUTION WIDTH 17.6 % (11.5-14.5); WHITE BLOOD COUNT 7.5 10^3/ul (4.8-10.8)
[2016-08-18 05:13] LABS: INR 1.68; PROTIME 19.9 Sec (12.2-14.2); PT RATIO 1.6
[2016-08-18 05:25] LABS: CREATININE 2.89 mg/dl (0.61-1.24); PHOSPHORUS 3.3 mg/dl (2.5-4.9)
[2016-08-18 05:26] LABS: CALCIUM 9.3 mg/dl (8.4-10.2); MAGNESIUM 2.4 mg/dl (1.7-2.5)
[2016-08-18] MEDS: VANCOMYCIN HCL 250 MG/5ML POSYG PO SCH ×4 (05:52→17:43)
[2016-08-18] MEDS: PANTOPRAZOLE (EC) 40 MG TAB PO SCH (05:52)
[2016-08-18] MEDS ORDERED: POTASSIUM CHLORIDE 20 MEQ POWDER FOR ORAL SOLN GTB ONE (08:00)
--- NOTE | 2016-08-18 08:37 | PN ---
DATE: 08/18/2016 SUBJECTIVE: The patient is stable, no acute events overnight. No fevers, chills, nausea or vomitin g. OBJECTIVE: VITAL SIGNS: Blood pressure 122/72, respirations 15, pulse 59, temperature 98.1. HEENT: Head is normocephalic. NECK: Supple. HEART: Regular rate. LUNGS: Showed diminished breath sounds at the base. ABDOMEN: Soft, nontender to palpation. No rebound or guarding. EXTREMITIES: Negative for clubbing or cyanosis. No edema. DERMATOLOGIC: No rashes. MUSCULOSKELETAL: Have positive decubitus wound. NEUROLOGIC: No change in exam. MEDICATIONS: The patient's medications have been reviewed. LABORATORY DATA: Shows sodium 139, potassium 2.0, chloride 102, BUN 41, creatinine of 2.89. White count 7.5, hemoglobin 7.5, hematocrit 24.4, platelet count is 224. ASSESSMENT AND PLAN: 1. Sepsis, status post shock. Etiology is secondary to multifactorial causes, possible line sepsis , healthcare-associated pneumonia, Clostridium difficile colitis. The patient has clinically respon ded to IV antibiotics, is currently off pressor support. At this point, continue the current treatm ent plan, continue antibiotic therapy, follow up with infectious disease. 2. Ventilator-dependent respiratory failure. Vent settings have been reviewed. ABG was reviewed. Continue the current treatment plan. 3. Dysphagia. Status post PEG tube. Continue tube feedings. 4. End-stage renal disease. Plan for hemodialysis today for 3 hours, 4K bath, calcium 2.5. 5. Hypokalemia. Will replete with potassium chloride. 6. Hyponatremia. Improved. Continue free water flushes. 7. Anemia of chronic disease. Continue to monitor hemoglobin and hematocrit levels. Continue Epog en. 8. Mineral bone disorder. Continue to monitor calcium and phosphorus levels. 9. Diabetes. Continue Accu-Cheks and insulin sliding scale. 10. Clostridium difficile colitis. Continue vancomycin. 11. Decubitus wound. Continue wound care. 12. Atrial fibrillation. Rate controlled. Continue the current medical management. The patient is on Coumadin, being adjusted by cardiology. 13. Volume overload. Improving. Continue ultrafiltration dialysis. 14. Gastrointestinal and deep venous thrombosis prophylaxis. Continue proton pump inhibitor and Co umadin. Dictated By: JENNIFER KNOWLES/ODALYS Conf#: [id number] [facility]#: [id number]
[2016-08-18] MEDS: FAMOTIDINE 20 MG TAB GTB SCH (08:45)
[2016-08-18] MEDS: CHOLECALCIFEROL 2,000 UNIT CAP GTB SCH (08:45)
[2016-08-18] MEDS: ASCORBIC ACID 250 MG TAB GTB SCH (08:45)
[2016-08-18] MEDS: MULTIVIT/CA CARB/B CMPLX/FA TAB GTB SCH (08:45)
[2016-08-18] MEDS: PAROXETINE 20 MG TAB GTB SCH (08:45)
[2016-08-18] MEDS: FLUTICASONE 0.05% 16 GM NAS SPRAY NASAL SCH (09:00)
--- NOTE | 2016-08-18 09:49 | CONS ---
Date/Time of Note Date/Time of Note DATE: 08/18/16 TIME: 09:49 Assessment/Plan Assessment/Plan Chief Complaint/Hosp Course ID PROGRESS NOTE TOTAL ABX DAY # =>Vanco IV + PO s/p Amikacin 24H INTERVAL SUMMARY * Super morbid obese M - lethargic, HD in process, VSS, NAD * MICROBIOLOGY: Blood cultures from 08/14/2016 growing staph species 1 out of 2 sets. Organism 1 COAGULASE NEGATIVE STAPH CRITICAL TEST VALUE BTL 1 . PHONED TO & READ BACK BY Comfort NAYLOR 08/15/16 2100 GG CRITICAL TEST VALUE BTL 2 . PHONED TO & READ BACK BY DENISE,08/16/16.TT COAG NEG M.I.C. RX --------- --- CEFAZOLIN R CIPROFLOXACIN >=8 R CLINDAMYCIN >=8 R DOXYCYCLINE S ERYTHROMYCIN >=8 R LEVOFLOXACIN >=8 R OXACILLIN >=4 R PENICILLIN-G >=0.5 R RIFAMPIN >=32 R VANCOMYCIN 2 S TRIMETHOPRIM/SULFAMETHOXAZOLE 160 R PHYSICAL EXAMINATION: GENERAL: VSS, NAD - super morbid obese M, resting comfortably in HD session HEENT: Unremarkable NECK: Trach midline CHEST: Equal chest rise bilaterally, without dyspnea on observation HEART: Pulse RRR ABDOMEN: Soft/peg EXTREMITIES: Warm SKIN: See hard chart skin assessment ID ASSESSMENT: 66 yo M w/PMHx super morbid obesity, Afib, ESRD-HD, Bilateral Hip Decubs IV admit with: 1. Septic shock with possible line sepsis. 2. Staph bacteremia=> COAGULASE NEGATIVE STAPH 1/2 Bottles 3. Clostridium difficile colitis. 4. Multiple chronic wounds. 5. Resolving pneumonia. (-)MRSA Nares INVASIVES: Trach, PEG, right femoral triple lumen catheter and right IJ Perm-A- Cath. ABX ALLERGY: KNDA CURRENT ABX: =>Vanco IV + PO s/p Amikacin ID RECOMMENDATIONS: 1. Continue Current ABX => anticipate 14 days total Vanco IV to cover concern opportunistic line sepsis, if repeat BCx remain (-) Line Salvage is appropriate for CoagNegStaph as long as sepsis resolves . . Problems: Consultation Date/Type/Reason Admit Date/Time Aug 08, 2016 at 11:44 Initial Consult Date 08/09/16 Type of Consultation: id Referring Provider: JENNIFER TAFOYA DO Exam/Review of Systems Vital Signs Vitals Vital Signs Date Time Temp Pulse Resp B/P Pulse Ox O2 Delivery O2 Flow Rate FiO2 08/18/16 09:00 67 16 131/71 100 08/18/16 08:00 30 08/18/16 07:30 98.0 08/17/16 08:00 Mechanical Ventilator Intake and Output 08/17/16 08/17/16 08/18/16 15:00 23:00 07:00 Intake Total 1080 ml 610 ml 645 ml Output Total 0 ml 0 ml Balance 1080 ml 610 ml 645 ml Results Result Diagram: 08/18/16 0450 08/18/16 0450 Results 24 hrs Laboratory Tests Test 08/17/16 12:38 08/17/16 18:02 08/17/16 21:09 08/18/16 04:50 Bedside Glucose 158 138 139 White Blood Count 7.5 Red Blood Count 2.10 L Hemoglobin 7.5 L Hematocrit 24.4 L Mean Corpuscular Volume 116.2 H Mean Corpuscular Hemoglobin 35.7 H Mean Corpuscular Hemoglobin Concent 30.7 L Red Cell Distribution Width 17.6 H Platelet Count 224 Mean Platelet Volume 10.5 H Neutrophils % 69.9 Lymphocytes % 17.5 Monocytes % 9.0 Eosinophils % 2.4 Basophils % 0.3 Nucleated Red Blood Cells % 0.0 Neutrophils # 5.3 Lymphocytes # 1.3 Monocytes # 0.7 Eosinophils # 0.2 Basophils # 0.0 Nucleated Red Blood Cells # 0.0 Prothrombin Time 19.9 H Prothrombin Time Ratio 1.6 INR International Normalized Ratio 1.68 Sodium Level 139 Potassium Level 3.0 L Chloride Level 102 Carbon Dioxide Level 25 Anion Gap 15 Blood Urea Nitrogen 41 H Creatinine 2.89 H Glucose Level 127 Calcium Level 9.3 Phosphorus Level 3.3 Magnesium Level 2.4 Random Vancomycin Level 22.3 Test 08/18/16 08:43 Bedside Glucose 121 Medications Medications Current Medications Cholecalciferol (Vitamin D) 2,000 unit DAILY GTB Last administered on t 08:45; Admin Dose 2,000 UNIT; Start 08/09/16 at 09:00 Famotidine (Pepcid) 20 mg DAILY GTB Last administered on 08/18/16 08:45; Admin Dose 20 MG; Start 08/09/16 at 09:00 Fluticasone Propionate (Flonase 0.05% Nasal) 1 spray DAILY NASAL Last administered on 08/17/16 08:53; Admin Dose 1 SPRAY; Start 08/09/16 at 09:00 Multivit/Ca Carb/ B Cmplx/FA/Prenat (Magui-Cedric) 1 tab DAILY GTB Last administered on 08/18/16 08:45; Admin Dose 1 TAB; Start 08/09/16 at 09:00 Ondansetron HCl (Zofran (Ped)) 4 mg Q6H PRN GTB NAUSEA AND/OR VOMITING; Start 08/08/16 at 13:00 Paroxetine HCl (Paxil) 20 mg DAILY GTB Last administered on 08/18/16 08:45; Admin Dose 20 MG; Start 08/09/16 at 09:00 Senna (Senokot) 2 tab hs GTB Last administered on 08/17/16 21:10; Admin Dose 2 TAB; Start 08/08/16 at 21:00 Acetaminophen (Tylenol Liquid) 650 mg Q4H PRN GTB PAIN AND OR ELEVATED TEMP; Start 08/08/16 at 12:41 Ascorbic Acid (Vitamin C) 250 mg DAILY GTB Last administered on 08/18/16 08:45 ; Admin Dose 250 MG; Start 08/09/16 at 09:00 Bisacodyl (Dulcolax Supp) 10 mg DAILY PRN [place] CONSTIPATION; Start 08/08/16 at 13 :00 Atorvastatin Calcium (Lipitor) 20 mg DAILY@21 PO Last administered on 21:10; Admin Dose 20 MG; Start 08/09/16 at 21:00 Miscellaneous Information 1 ea NOTE XX ; Start 08/08/16 at 21:00 Glucose (Glutose) 15 gm Q15M PRN PO DECREASED GLUCOSE; Start 08/08/16 at 21:00 Glucose (Glutose) 22.5 gm Q15M PRN PO DECREASED GLUCOSE; Start 08/08/16 at 21: 00 Dextrose (D50w Syringe) 25 ml Q15M PRN IV DECREASED GLUCOSE; Start 08/08/16 at 21:00 Dextrose (D50w Syringe) 50 ml Q15M PRN IV DECREASED GLUCOSE; Start 08/08/16 at 21:00 Glucagon (Glucagen) 1 mg Q15M PRN IM DECREASED GLUCOSE; Start 08/08/16 at 21:00 Glucose (Glutose) 15 gm Q15M PRN BUCCAL DECREASED GLUCOSE; Start 08/08/16 at 21 :00 Insulin Aspart (Novolog Insulin Pen) NOVOLOG *MILD* ALGORI... Q4 SC Last administered on 08/17/16 12:43; Admin Dose 1 UNIT; Start 08/09/16 at 09:00 Collagenase (Santyl) 1 applic DAILY TOP Last administered on 08/17/16 12:39; Admin Dose 1 APPLIC; Start 08/09/16 at 21:00 Vancomycin HCl (Vancomycin Oral Syringe) 250 mg Q6 PO Last administered on 08/18 05:52; Admin Dose 250 MG; Start 08/12/16 at 18:00 Pantoprazole (Protonix Tab) 40 mg DAILY@06 PO Last administered on 08/18/16 05 :52; Admin Dose 40 MG; Start 08/14/16 at 09:00 Insulin Glargine (Lantus) 14 unit QHS SC Last administered on 08/17/16 21:12; Admin Dose 14 UNIT; Start 08/17/16 at 21:00 Warfarin Sodium 5 mg 5 mg DAILY@17 GTB Last administered on 08/17/16 17:44; Admin Dose 5 MG; Start 08/17/16 at 17:00 Vancomycin HCl/ Sodium Chloride (Vancocin/NS) 250 ml @ 83.333 mls/ hr Q72H IVPB ; Start 08/19/16 at 11:00 ANKUSH WRIGHT NP Aug 18, 2016 09:49
[2016-08-18] MEDS: COLLAGENASE 30 GM TUBE TOP SCH (12:30)
[2016-08-18] MEDS: EPOETIN 10000 UNITS/1 ML INJ (ESRD) SC SCH (12:50)
--- NOTE | 2016-08-18 13:29 | CONS ---
Date/Time of Note Date/Time of Note DATE: 08/18/16 TIME: 13:27 Assessment/Plan Assessment/Plan Additional Assessment/Plan Ventilator settings are AC of 16, tidal volume 550, PEEP of 5, 30% FiO2. Assessment recommendations; 1. Patient admitted for sepsis and severe hypotension with interval improvement. Off pressor support. 2. History of anoxic brain injury, patient remains ventilator dependent. With very poor mental status. 3. Chronic renal failure, on hemodialysis. 4. Anemia. Continue current supportive care. Overall prognosis remains very poor. Consultation Date/Type/Reason Admit Date/Time Aug 08, 2016 at 11:44 Initial Consult Date 08/09/16 Type of Consultation: Pulmonary/critical care Referring Provider: JENNIFER TAFOYA DO 24 HR Interval Summary Free Text/Dictation Patient condition remains stable. Remains completely unresponsive due to underlying anoxic encephalopathy. Remains ventilator dependent. General exam; elderly male, morbidly obese on ventilator via tracheostomy unresponsive. Currently in no distress. Exam/Review of Systems Vital Signs Vitals Vital Signs Date Time Temp Pulse Resp B/P Pulse Ox O2 Delivery O2 Flow Rate FiO2 08/18/16 12:00 66 08/18/16 11:10 16 100 30 08/18/16 11:00 134/76 08/18/16 07:30 98.0 08/17/16 08:00 Mechanical Ventilator Intake and Output 08/17/16 08/17/16 08/18/16 15:00 23:00 07:00 Intake Total 1080 ml 610 ml 1080 ml Output Total 0 ml 0 ml Balance 1080 ml 610 ml 1080 ml Exam HEENT exam is; supple neck, JVD difficult to see because of short neck. Tracheostomy in place. Pupils are small bilaterally. No neck masses. No thyromegaly. Chest examination; diminished breath sounds throughout. S1-S2 audible, no murmurs. Regular rhythm. Abdomen examination; soft, protuberant. G-tube in place. Bowel sounds audible. Next Extremity examination; no peripheral edema. Neck SPIRITUAL COUNSELOR examination; patient remains unresponsive. Has severe contractures involving all 4 extremities. Results Result Diagram: 08/18/16 0450 08/18/16 0450 Results 24 hrs Laboratory Tests Test 08/17/16 18:02 08/17/16 21:09 08/18/16 04:50 08/18/16 08:43 Bedside Glucose 138 139 121 White Blood Count 7.5 Red Blood Count 2.10 L Hemoglobin 7.5 L Hematocrit 24.4 L Mean Corpuscular Volume 116.2 H Mean Corpuscular Hemoglobin 35.7 H Mean Corpuscular Hemoglobin Concent 30.7 L Red Cell Distribution Width 17.6 H Platelet Count 224 Mean Platelet Volume 10.5 H Neutrophils % 69.9 Lymphocytes % 17.5 Monocytes % 9.0 Eosinophils % 2.4 Basophils % 0.3 Nucleated Red Blood Cells % 0.0 Neutrophils # 5.3 Lymphocytes # 1.3 Monocytes # 0.7 Eosinophils # 0.2 Basophils # 0.0 Nucleated Red Blood Cells # 0.0 Prothrombin Time 19.9 H Prothrombin Time Ratio 1.6 INR International Normalized Ratio 1.68 Sodium Level 139 Potassium Level 3.0 L Chloride Level 102 Carbon Dioxide Level 25 Anion Gap 15 Blood Urea Nitrogen 41 H Creatinine 2.89 H Glucose Level 127 Calcium Level 9.3 Phosphorus Level 3.3 Magnesium Level 2.4 Random Vancomycin Level 22.3 Test 08/18/16 12:43 Bedside Glucose 175 Medications Medications Current Medications Cholecalciferol (Vitamin D) 2,000 unit DAILY GTB Last administered on 08:45; Admin Dose 2,000 UNIT; Start 08/09/16 at 09:00 Famotidine (Pepcid) 20 mg DAILY GTB Last administered on 08/18/16 08:45; Admin Dose 20 MG; Start 08/09/16 at 09:00 Fluticasone Propionate (Flonase 0.05% Nasal) 1 spray DAILY NASAL Last administered on 08/18/16 09:00; Admin Dose 1 SPRAY; Start 08/09/16 at 09:00 Multivit/Ca Carb/ B Cmplx/FA/Prenat (Magui-Cedric) 1 tab DAILY GTB Last administered on 08/18/16 08:45; Admin Dose 1 TAB; Start 08/09/16 at 09:00 Ondansetron HCl (Zofran (Ped)) 4 mg Q6H PRN GTB NAUSEA AND/OR VOMITING; Start 08/08/16 at 13:00 Paroxetine HCl (Paxil) 20 mg DAILY GTB Last administered on 08/18/16 08:45; Admin Dose 20 MG; Start 08/09/16 at 09:00 Senna (Senokot) 2 tab hs GTB Last administered on 08/17/16 21:10; Admin Dose 2 TAB; Start 08/08/16 at 21:00 Acetaminophen (Tylenol Liquid) 650 mg Q4H PRN GTB PAIN AND OR ELEVATED TEMP; Start 08/08/16 at 12:41 Ascorbic Acid (Vitamin C) 250 mg DAILY GTB Last administered on 08/18/16 08:45 ; Admin Dose 250 MG; Start 08/09/16 at 09:00 Bisacodyl (Dulcolax Supp) 10 mg DAILY PRN [place] CONSTIPATION; Start 08/08/16 at 13 :00 Atorvastatin Calcium (Lipitor) 20 mg DAILY@21 PO Last administered on 21:10; Admin Dose 20 MG; Start 08/09/16 at 21:00 Miscellaneous Information 1 ea NOTE XX ; Start 08/08/16 at 21:00 Glucose (Glutose) 15 gm Q15M PRN PO DECREASED GLUCOSE; Start 08/08/16 at 21:00 Glucose (Glutose) 22.5 gm Q15M PRN PO DECREASED GLUCOSE; Start 08/08/16 at 21: 00 Dextrose (D50w Syringe) 25 ml Q15M PRN IV DECREASED GLUCOSE; Start 08/08/16 at 21:00 Dextrose (D50w Syringe) 50 ml Q15M PRN IV DECREASED GLUCOSE; Start 08/08/16 at 21:00 Glucagon (Glucagen) 1 mg Q15M PRN IM DECREASED GLUCOSE; Start 08/08/16 at 21:00 Glucose (Glutose) 15 gm Q15M PRN BUCCAL DECREASED GLUCOSE; Start 08/08/16 at 21 :00 Insulin Aspart (Novolog Insulin Pen) NOVOLOG *MILD* ALGORI... Q4 SC Last administered on 08/18/16 12:46; Admin Dose 1 UNIT; Start 08/09/16 at 09:00 Collagenase (Santyl) 1 applic DAILY TOP Last administered on 08/18/16 12:30; Admin Dose 1 APPLIC; Start 08/09/16 at 21:00 Vancomycin HCl (Vancomycin Oral Syringe) 250 mg Q6 PO Last administered on 08/18 12:18; Admin Dose 250 MG; Start 08/12/16 at 18:00 Pantoprazole (Protonix Tab) 40 mg DAILY@06 PO Last administered on 08/18/16 05 :52; Admin Dose 40 MG; Start 08/14/16 at 09:00 Insulin Glargine (Lantus) 14 unit QHS SC Last administered on 08/17/16 21:12; Admin Dose 14 UNIT; Start 08/17/16 at 21:00 Warfarin Sodium 5 mg 5 mg DAILY@17 GTB Last administered on 08/17/16 17:44; Admin Dose 5 MG; Start 08/17/16 at 17:00 Vancomycin HCl/ Sodium Chloride (Vancocin/NS) 250 ml @ 83.333 mls/ hr Q72H IVPB ; Start 08/19/16 at 11:00 GELY FU Aug 18, 2016 13:29
[2016-08-18] MEDS: WARFARIN 5 MG TAB GTB SCH (17:43)
[2016-08-18] MEDS: SENNA TAB GTB SCH (21:10)
[2016-08-18] MEDS: ATORVASTATIN 20 MG TAB PO SCH (21:10)
[2016-08-18] MEDS: INSULIN GLARGINE [LANtus] 3 ML PEN SC SCH (21:21)
[2016-08-19] VITALS (44 sets, daily range): BP systolic 68–176; BP diastolic 22–122; PULSE 42–76; RESP 9–18
[2016-08-19] MEDS: VANCOMYCIN HCL 250 MG/5ML POSYG PO SCH ×4 (00:15→17:30)
[2016-08-19] MEDS: INSULIN ASPART [NOVOLOG] 3 ML PEN SC SCH ×6 (01:10→21:06)
[2016-08-19 05:04] LABS: ADD SCAN DIFF NO
[2016-08-19 05:27] LABS: ABNORMAL IP MESSAGE 1; BASOPHILS % 0.4 % (0.0-2.0); EOSINOPHILS # 0.1 10^3/ul (0.0-0.5); HEMOGLOBIN 8.8 g/dl (14.0-18.0); LYMPHOCYTES # 1.3 10^3/ul (0.8-2.9); LYMPHOCYTES % 19.1 % (15.0-51.0); MEAN CORPUSCULAR HEMOGLOBIN 33.3 pg (29.0-33.0); MEAN CORPUSCULAR HGB CONC 30.3 g/dl (32.0-37.0); MEAN CORPUSCULAR VOLUME 109.8 fl (82.0-101.0); MEAN PLATELET VOLUME 10.4 fl (7.4-10.4); MONOCYTE # 0.8 10^3/ul (0.3-0.9); MONOCYTES % 11.7 % (0.0-11.0); NEUTROPHIL # 4.6 10^3/ul (1.6-7.5); NEUTROPHILS % 65.9 % (39.0-77.0); NUCLEATED RED BLOOD CELLS% 0.3 /100WBC (0.0-0.0); PLATELET COUNT 226 10^3/UL (140-415); RED BLOOD COUNT 2.64 10^6/ul (4.70-6.10); RED CELL DISTRIBUTION WIDTH 23.4 % (11.5-14.5)
[2016-08-19 05:32] LABS: CREATININE 2.48 mg/dl (0.61-1.24)
[2016-08-19 05:33] LABS: CALCIUM 9.5 mg/dl (8.4-10.2); MAGNESIUM 2.4 mg/dl (1.7-2.5); PHOSPHORUS 2.9 mg/dl (2.5-4.9)
[2016-08-19] MEDS: PANTOPRAZOLE (EC) 40 MG TAB PO SCH (06:24)
[2016-08-19 06:45] LABS: INR 1.53; PROTIME 18.5 Sec (12.2-14.2); PT RATIO 1.4
[2016-08-19] MEDS: POTASSIUM CHLORIDE 20 MEQ POWDER FOR ORAL SOLN GTB SCH (08:13)
[2016-08-19] MEDS: FAMOTIDINE 20 MG TAB GTB SCH (08:13)
[2016-08-19] MEDS: MULTIVIT/CA CARB/B CMPLX/FA TAB GTB SCH (08:13)
[2016-08-19] MEDS: CHOLECALCIFEROL 2,000 UNIT CAP GTB SCH (08:13)
[2016-08-19] MEDS: PAROXETINE 20 MG TAB GTB SCH (08:13)
[2016-08-19] MEDS: ASCORBIC ACID 250 MG TAB GTB SCH (08:13)
[2016-08-19] MEDS: FLUTICASONE 0.05% 16 GM NAS SPRAY NASAL SCH (08:18)
--- NOTE | 2016-08-19 08:29 | PN ---
DATE: 08/19/2016 SUBJECTIVE: The patient is stable, no acute events overnight. The patient had hemodialysis yesterd ay, tolerated well. No other events noted. No hemoptysis, hematemesis, or hematochezia. OBJECTIVE: VITAL SIGNS: Blood pressure is 104/33, respiration is 18, pulse 61, temperature 98.6. HEENT: Head is normocephalic. NECK: Supple. HEART: Regular rate. LUNGS: Show diminished breath sounds at base. ABDOMEN: Soft, nontender to palpation. No rebound or guarding. EXTREMITIES: Negative for clubbing, cyanosis, edema. DERMATOLOGIC: No rashes. MUSCULOSKELETAL: No joint effusions. NEUROLOGIC: The patient remains obtunded, no change in exam. MUSCULOSKELETAL: There is a decubitus wound, no change. LABORATORY DATA: Showed sodium 139, potassium 3.0, BUN 30, creatinine 2.48. White count is 7.0, he moglobin 8.8, hematocrit 29.0, platelet count is 226. ASSESSMENT AND PLAN: 1. Sepsis, status post shock, etiology is multifactorial, possible line sepsis, healthcare-associat ed pneumonia, Clostridium difficile colitis. The patient is clinically responding to IV antibiotics , currently off pressor support. Continue current treatment plan, supportive care, continue IV anti biotics. Follow up with infectious disease. 2. Ventilator dependent respiratory failure. Vent settings have been reviewed. ABG is reviewed. Continue current treatment plan 3. Dysphagia status post PEG. Continue tube feeding. 4. End-stage renal disease. The patient was dialyzed yesterday, tolerated well. Plan for dialysis tomorrow. 5. Hypokalemia. We will give potassium chloride. 6. Hypernatremia, improved. Continue free water flushes. 7. Anemia of chronic disease. The patient is status post blood transfusion. Continue Epogen. Mon itor hemoglobin and hematocrit levels. 8. Mineral bone disorder. Continue to monitor calcium and phosphorus levels. 9. Diabetes. Continue Accu-Cheks and sliding scale. 10. Clostridium difficile colitis. Continue oral vancomycin. 11. Decubitus wound. Continue wound care, offloading, optimize nutrition. 12. Atrial fibrillation, rate controlled. Continue medical management. The patient is on Coumadin . INR is subtherapeutic. We will increase Coumadin to 6 mg daily and check an INR in a.m. 13. Volume overload, improving. Continue ultrafiltration dialysis. 14. Gastrointestinal and deep venous thrombosis prophylaxis. Continue PPI and Coumadin. Dictated By: JENNIFER KNOWLES/ODALYS Conf#: [id number] DID#: [id number]
[2016-08-19] MEDS ORDERED: NITROGLYCERIN 2% 1 GM OINT PKT TD PRN (09:30)
--- NOTE | 2016-08-19 10:30 | CONS ---
Date/Time of Note Date/Time of Note DATE: 08/19/16 TIME: 10:27 Assessment/Plan Assessment/Plan Additional Assessment/Plan Ventilator settings are AC of 16, tidal volume 550, PEEP of 5, 30% FiO2. Assessment recommendations; 1. Patient admitted for sepsis and pneumonia with significant clinical improvement. 2. Chronic respiratory failure due to underlying severe CVA with severe anoxic brain injury. 3. Anemia. 4. Morbid obesity. 5. Sepsis with interval improvement. Continue current treatment. Prognosis remains poor. Patient can be transferred to the long term/rehab center. Consultation Date/Type/Reason Admit Date/Time Aug 08, 2016 at 11:44 Initial Consult Date 08/09/16 Type of Consultation: Pulmonary/critical care Referring Provider: JENNIFER TAFOYA DO 24 HR Interval Summary Free Text/Dictation Patient condition remains stable. Due to history of anoxic brain injury patient remains completely unresponsive. Remains ventilator dependent. General exam; elderly male appears morbidly obese. On mechanical ventilation via tracheostomy. Currently in no distress. Exam/Review of Systems Vital Signs Vitals Vital Signs Date Time Temp Pulse Resp B/P Pulse Ox O2 Delivery O2 Flow Rate FiO2 08/19/16 09:18 171/92 08/19/16 09:02 71 16 08/19/16 08:00 30 08/19/16 08:00 100 08/19/16 04:00 98.0 08/17/16 08:00 Mechanical Ventilator Intake and Output 08/18/16 08/18/16 08/19/16 14:59 22:59 06:59 Intake Total 1980 ml 480 ml 880 ml Output Total 7900 ml 0 ml 0 ml Balance -5920 ml 480 ml 880 ml Exam HEENT examination; supple neck, JVD difficult to see because of short neck. Midline trachea. No neck masses. Tracheostomy in place with clean insertion site. Pupils are small bilaterally. Chest examination; diminished but clear breath sounds. S1-S2 audible no murmurs. Regular rhythm. Abdomen examination; grossly protuberant. G-tube in place. Bowel sounds audible. Ischemic examination; no peripheral edema. TILER'S ASSISTANT examination; patient remains unresponsive has severe contractures involving all 4 extremities. Results Result Diagram: 08/19/16 0430 08/19/16 0430 Results 24 hrs Laboratory Tests Test 08/18/16 12:43 08/18/16 17:41 08/18/16 21:11 08/19/16 01:07 Bedside Glucose 175 160 172 171 Test 08/19/16 04:30 08/19/16 05:18 08/19/16 06:30 08/19/16 08:51 White Blood Count 7.0 Red Blood Count 2.64 #L Hemoglobin 8.8 L Hematocrit 29.0 L Mean Corpuscular Volume 109.8 H Mean Corpuscular Hemoglobin 33.3 H Mean Corpuscular Hemoglobin Concent 30.3 L Red Cell Distribution Width 23.4 #H Platelet Count 226 Mean Platelet Volume 10.4 Neutrophils % 65.9 Lymphocytes % 19.1 Monocytes % 11.7 H Eosinophils % 2.0 Basophils % 0.4 Nucleated Red Blood Cells % 0.3 H Neutrophils # 4.6 Lymphocytes # 1.3 Monocytes # 0.8 Eosinophils # 0.1 Basophils # 0.0 Nucleated Red Blood Cells # 0.0 Sodium Level 139 Potassium Level 3.0 L Chloride Level 103 Carbon Dioxide Level 27 Anion Gap 12 Blood Urea Nitrogen 30 #H Creatinine 2.48 H Glucose Level 138 Calcium Level 9.5 Phosphorus Level 2.9 Magnesium Level 2.4 Bedside Glucose 134 158 Prothrombin Time 18.5 H Prothrombin Time Ratio 1.4 INR International Normalized Ratio 1.53 Medications Medications Current Medications Cholecalciferol (Vitamin D) 2,000 unit DAILY GTB Last administered on 08:13; Admin Dose 2,000 UNIT; Start 08/09/16 at 09:00 Famotidine (Pepcid) 20 mg DAILY GTB Last administered on 08/19/16 08:13; Admin Dose 20 MG; Start 08/09/16 at 09:00 Fluticasone Propionate (Flonase 0.05% Nasal) 1 spray DAILY NASAL Last administered on 08/19/16 08:18; Admin Dose 1 SPRAY; Start 08/09/16 at 09:00 Multivit/Ca Carb/ B Cmplx/FA/Prenat (Magui-Cedric) 1 tab DAILY GTB Last administered on 08/19/16 08:13; Admin Dose 1 TAB; Start 08/09/16 at 09:00 Ondansetron HCl (Zofran (Ped)) 4 mg Q6H PRN GTB NAUSEA AND/OR VOMITING; Start 08/08/16 at 13:00 Paroxetine HCl (Paxil) 20 mg DAILY GTB Last administered on 08/19/16 08:13; Admin Dose 20 MG; Start 08/09/16 at 09:00 Senna (Senokot) 2 tab hs GTB Last administered on 08/18/16 21:10; Admin Dose 2 TAB; Start 08/08/16 at 21:00 Acetaminophen (Tylenol Liquid) 650 mg Q4H PRN GTB PAIN AND OR ELEVATED TEMP; Start 08/08/16 at 12:41 Ascorbic Acid (Vitamin C) 250 mg DAILY GTB Last administered on 08/19/16 08:13 ; Admin Dose 250 MG; Start 08/09/16 at 09:00 Bisacodyl (Dulcolax Supp) 10 mg DAILY PRN [place] CONSTIPATION; Start 08/08/16 at 13 :00 Atorvastatin Calcium (Lipitor) 20 mg DAILY@21 PO Last administered on 21:10; Admin Dose 20 MG; Start 08/09/16 at 21:00 Miscellaneous Information 1 ea NOTE XX ; Start 08/08/16 at 21:00 Glucose (Glutose) 15 gm Q15M PRN PO DECREASED GLUCOSE; Start 08/08/16 at 21:00 Glucose (Glutose) 22.5 gm Q15M PRN PO DECREASED GLUCOSE; Start 08/08/16 at 21: 00 Dextrose (D50w Syringe) 25 ml Q15M PRN IV DECREASED GLUCOSE; Start 08/08/16 at 21:00 Dextrose (D50w Syringe) 50 ml Q15M PRN IV DECREASED GLUCOSE; Start 08/08/16 at 21:00 Glucagon (Glucagen) 1 mg Q15M PRN IM DECREASED GLUCOSE; Start 08/08/16 at 21:00 Glucose (Glutose) 15 gm Q15M PRN BUCCAL DECREASED GLUCOSE; Start 08/08/16 at 21 :00 Insulin Aspart (Novolog Insulin Pen) NOVOLOG *MILD* ALGORI... Q4 SC Last administered on 08/19/16 08:54; Admin Dose 1 UNIT; Start 08/09/16 at 09:00 Collagenase (Santyl) 1 applic DAILY TOP Last administered on 08/18/16 12:30; Admin Dose 1 APPLIC; Start 08/09/16 at 21:00 Vancomycin HCl (Vancomycin Oral Syringe) 250 mg Q6 PO Last administered on 08/19 06:24; Admin Dose 250 MG; Start 08/12/16 at 18:00 Pantoprazole (Protonix Tab) 40 mg DAILY@06 PO Last administered on 08/19/16 06 :24; Admin Dose 40 MG; Start 08/14/16 at 09:00 Insulin Glargine 14 unit 14 unit QHS SC Last administered on 08/18/16 21:21; Admin Dose 14 UNIT; Start 08/17/16 at 21:00 Vancomycin HCl/ Sodium Chloride (Vancocin/NS) 250 ml @ 83.333 mls/ hr Q72H IVPB ; Start 08/19/16 at 11:00 Potassium Chloride (Potassium Chloride Pwd/Soln) 40 meq DAILY GTB Last administered on 08/19/16 08:13; Admin Dose 40 MEQ; Start 08/19/16 at 09:00 Warfarin Sodium (Coumadin) 6 mg DAILY@17 GTB ; Start 08/19/16 at 17:00 Nitroglycerin (Nitroglycerin 2% Oint) 1 inch Q8 PRN TD For SBP>170 Last administered on 08/19/16 09:30; Admin Dose 1 INCH; Start 08/19/16 at 09:30 GELY FU Aug 19, 2016 10:30
[2016-08-19] MEDS ORDERED: VANCOMYCIN 1.25 GM in SOD CHLORIDE 0.9% 250 ML IVPB SCH (11:00)
--- NOTE | 2016-08-19 16:26 | CONS ---
Date/Time of Note Date/Time of Note DATE: 08/19/16 TIME: 16:24 Assessment/Plan Assessment/Plan Chief Complaint/Hosp Course ID PROGRESS NOTE TOTAL ABX DAY # =>Vanco IV + PO s/p Amikacin 24H INTERVAL SUMMARY * No new issues -- resting comfortably -- VSS s/p HD yesterday * Super morbid obese M * MICROBIOLOGY: Blood cultures from 08/14/2016 growing staph species 1 out of 2 sets. Organism 1 COAGULASE NEGATIVE STAPH CRITICAL TEST VALUE BTL 1 . PHONED TO & READ BACK BY Comfort NAYLOR 08/15/16 2100 GG CRITICAL TEST VALUE BTL 2 . PHONED TO & READ BACK BY DENISE,08/16/16.TT COAG NEG M.I.C. RX --------- --- CEFAZOLIN R CIPROFLOXACIN >=8 R CLINDAMYCIN >=8 R DOXYCYCLINE S ERYTHROMYCIN >=8 R LEVOFLOXACIN >=8 R OXACILLIN >=4 R PENICILLIN-G >=0.5 R RIFAMPIN >=32 R VANCOMYCIN 2 S TRIMETHOPRIM/SULFAMETHOXAZOLE 160 R PHYSICAL EXAMINATION: GENERAL: VSS, NAD - super morbid obese M, resting comfortably in HD session HEENT: Unremarkable NECK: Trach midline CHEST: Equal chest rise bilaterally, without dyspnea on observation HEART: Pulse RRR ABDOMEN: Soft/peg EXTREMITIES: Warm SKIN: See hard chart skin assessment ID ASSESSMENT: 66 yo M w/PMHx super morbid obesity, Afib, ESRD-HD, Bilateral Hip Decubs IV admit with: 1. Septic shock with possible line sepsis. 2. Staph bacteremia=> COAGULASE NEGATIVE STAPH 1/2 Bottles 3. Clostridium difficile colitis. 4. Multiple chronic wounds. 5. Resolving pneumonia. (-)MRSA Nares INVASIVES: Trach, PEG, right femoral triple lumen catheter and right IJ Perm-A- Cath. ABX ALLERGY: KNDA CURRENT ABX: =>Vanco IV + PO s/p Amikacin ID RECOMMENDATIONS: 1. Continue Current ABX => anticipate 14 days total Vanco IV to cover concern opportunistic line sepsis=> * if repeat BCx remain (-) Line Salvage is appropriate for CoagNegStaph as long as sepsis resolves . . Problems: Consultation Date/Type/Reason Admit Date/Time Aug 08, 2016 at 11:44 Initial Consult Date 08/09/16 Type of Consultation: ID Referring Provider: JENNIFER TAFOYA DO Exam/Review of Systems Vital Signs Vitals Vital Signs Date Time Temp Pulse Resp B/P Pulse Ox O2 Delivery O2 Flow Rate FiO2 08/19/16 14:00 16 133/78 100 08/19/16 13:20 67 30 08/19/16 12:00 98.2 08/17/16 08:00 Mechanical Ventilator Intake and Output 08/18/16 08/18/16 08/19/16 15:00 23:00 07:00 Intake Total 1580 ml 480 ml 880 ml Output Total 7900 ml 0 ml 0 ml Balance -6320 ml 480 ml 880 ml Results Result Diagram: 08/19/16 0430 08/19/16 0430 Results 24 hrs Laboratory Tests Test 08/18/16 17:41 08/18/16 21:11 08/19/16 01:07 08/19/16 04:30 Bedside Glucose 160 172 171 White Blood Count 7.0 Red Blood Count 2.64 #L Hemoglobin 8.8 L Hematocrit 29.0 L Mean Corpuscular Volume 109.8 H Mean Corpuscular Hemoglobin 33.3 H Mean Corpuscular Hemoglobin Concent 30.3 L Red Cell Distribution Width 23.4 #H Platelet Count 226 Mean Platelet Volume 10.4 Neutrophils % 65.9 Lymphocytes % 19.1 Monocytes % 11.7 H Eosinophils % 2.0 Basophils % 0.4 Nucleated Red Blood Cells % 0.3 H Neutrophils # 4.6 Lymphocytes # 1.3 Monocytes # 0.8 Eosinophils # 0.1 Basophils # 0.0 Nucleated Red Blood Cells # 0.0 Sodium Level 139 Potassium Level 3.0 L Chloride Level 103 Carbon Dioxide Level 27 Anion Gap 12 Blood Urea Nitrogen 30 #H Creatinine 2.48 H Glucose Level 138 Calcium Level 9.5 Phosphorus Level 2.9 Magnesium Level 2.4 Test 08/19/16 05:18 08/19/16 06:30 08/19/16 08:51 08/19/16 13:04 Bedside Glucose 134 158 151 Prothrombin Time 18.5 H Prothrombin Time Ratio 1.4 INR International Normalized Ratio 1.53 Medications Medications Current Medications Cholecalciferol (Vitamin D) 2,000 unit DAILY GTB Last administered on 08:13; Admin Dose 2,000 UNIT; Start 08/09/16 at 09:00 Famotidine (Pepcid) 20 mg DAILY GTB Last administered on 08/19/16 08:13; Admin Dose 20 MG; Start 08/09/16 at 09:00 Fluticasone Propionate (Flonase 0.05% Nasal) 1 spray DAILY NASAL Last administered on 08/19/16 08:18; Admin Dose 1 SPRAY; Start 08/09/16 at 09:00 Multivit/Ca Carb/ B Cmplx/FA/Prenat (Magui-Cedric) 1 tab DAILY GTB Last administered on 08/19/16 08:13; Admin Dose 1 TAB; Start 08/09/16 at 09:00 Ondansetron HCl (Zofran (Ped)) 4 mg Q6H PRN GTB NAUSEA AND/OR VOMITING; Start 08/08/16 at 13:00 Paroxetine HCl (Paxil) 20 mg DAILY GTB Last administered on 08/19/16 08:13; Admin Dose 20 MG; Start 08/09/16 at 09:00 Senna (Senokot) 2 tab hs GTB Last administered on 08/18/16 21:10; Admin Dose 2 TAB; Start 08/08/16 at 21:00 Acetaminophen (Tylenol Liquid) 650 mg Q4H PRN GTB PAIN AND OR ELEVATED TEMP; Start 08/08/16 at 12:41 Ascorbic Acid (Vitamin C) 250 mg DAILY GTB Last administered on 08/19/16 08:13 ; Admin Dose 250 MG; Start 08/09/16 at 09:00 Bisacodyl (Dulcolax Supp) 10 mg DAILY PRN [place] CONSTIPATION; Start 08/08/16 at 13 :00 Atorvastatin Calcium (Lipitor) 20 mg DAILY@21 PO Last administered on 21:10; Admin Dose 20 MG; Start 08/09/16 at 21:00 Miscellaneous Information 1 ea NOTE XX ; Start 08/08/16 at 21:00 Glucose (Glutose) 15 gm Q15M PRN PO DECREASED GLUCOSE; Start 08/08/16 at 21:00 Glucose (Glutose) 22.5 gm Q15M PRN PO DECREASED GLUCOSE; Start 08/08/16 at 21: 00 Dextrose (D50w Syringe) 25 ml Q15M PRN IV DECREASED GLUCOSE; Start 08/08/16 at 21:00 Dextrose (D50w Syringe) 50 ml Q15M PRN IV DECREASED GLUCOSE; Start 08/08/16 at 21:00 Glucagon (Glucagen) 1 mg Q15M PRN IM DECREASED GLUCOSE; Start 08/08/16 at 21:00 Glucose (Glutose) 15 gm Q15M PRN BUCCAL DECREASED GLUCOSE; Start 08/08/16 at 21 :00 Insulin Aspart (Novolog Insulin Pen) NOVOLOG *MILD* ALGORI... Q4 SC Last administered on 08/19/16 13:06; Admin Dose 1 UNIT; Start 08/09/16 at 09:00 Collagenase (Santyl) 1 applic DAILY TOP Last administered on 08/18/16 12:30; Admin Dose 1 APPLIC; Start 08/09/16 at 21:00 Vancomycin HCl (Vancomycin Oral Syringe) 250 mg Q6 PO Last administered on 08/19 12:29; Admin Dose 250 MG; Start 08/12/16 at 18:00 Pantoprazole (Protonix Tab) 40 mg DAILY@06 PO Last administered on 08/19/16 06 :24; Admin Dose 40 MG; Start 08/14/16 at 09:00 Insulin Glargine 14 unit 14 unit QHS SC Last administered on 08/18/16 21:21; Admin Dose 14 UNIT; Start 08/17/16 at 21:00 Vancomycin HCl/ Sodium Chloride (Vancocin/NS) 250 ml @ 83.333 mls/ hr Q72H IVPB Last administered on 08/19/16 13:31; Admin Dose 83.333 MLS/HR; Start at 11:00 Potassium Chloride (Potassium Chloride Pwd/Soln) 40 meq DAILY GTB Last administered on 08/19/16 08:13; Admin Dose 40 MEQ; Start 08/19/16 at 09:00 Warfarin Sodium (Coumadin) 6 mg DAILY@17 GTB ; Start 08/19/16 at 17:00 Nitroglycerin (Nitroglycerin 2% Oint) 1 inch Q8 PRN TD For SBP>170 Last administered on 08/19/16t 09:30; Admin Dose 1 INCH; Start 08/19/16 at 09:30 ANKUSH WRIGHT NP Aug 19, 2016 16:26
[2016-08-19] MEDS: COLLAGENASE 30 GM TUBE TOP SCH (17:00)
[2016-08-19] MEDS: WARFARIN 3 MG TAB GTB SCH (17:22)
[2016-08-19] MEDS: INSULIN GLARGINE [LANtus] 3 ML PEN SC SCH (21:06)
[2016-08-19] MEDS: ATORVASTATIN 20 MG TAB PO SCH (21:08)
[2016-08-19] MEDS: SENNA TAB GTB SCH (21:09)
[2016-08-20] VITALS (35 sets, daily range): BP systolic 83–115; BP diastolic 42–85; PULSE 56–81; RESP 14–20
[2016-08-20] MEDS: VANCOMYCIN HCL 250 MG/5ML POSYG PO SCH ×4 (00:29→18:11)
[2016-08-20] MEDS: INSULIN ASPART [NOVOLOG] 3 ML PEN SC SCH ×5 (01:32→18:11)
[2016-08-20] MEDS: PANTOPRAZOLE (EC) 40 MG TAB PO SCH (05:35)
[2016-08-20 06:33] LABS: ADD SCAN DIFF NO
[2016-08-20 06:38] LABS: BASOPHIL # 0.1 10^3/ul (0.0-0.1); BASOPHILS % 0.7 % (0.0-2.0); EOSINOPHILS # 0.2 10^3/ul (0.0-0.5); EOSINOPHILS % 2.2 % (0.0-7.0); HEMATOCRIT 29.6 % (42.0-52.0); HEMOGLOBIN 8.9 g/dl (14.0-18.0); LYMPHOCYTES # 1.2 10^3/ul (0.8-2.9); MEAN CORPUSCULAR HEMOGLOBIN 33.1 pg (29.0-33.0); MEAN CORPUSCULAR HGB CONC 30.1 g/dl (32.0-37.0); MEAN PLATELET VOLUME 10.5 fl (7.4-10.4); MONOCYTE # 0.7 10^3/ul (0.3-0.9); MONOCYTES % 9.7 % (0.0-11.0); NEUTROPHIL # 4.7 10^3/ul (1.6-7.5); NEUTROPHILS % 68.7 % (39.0-77.0); PLATELET COUNT 205 10^3/UL (140-415); RED BLOOD COUNT 2.69 10^6/ul (4.70-6.10); WHITE BLOOD COUNT 6.9 10^3/ul (4.8-10.8)
[2016-08-20 06:53] LABS: INR 1.47; PROTIME 17.9 Sec (12.2-14.2); PT RATIO 1.4
[2016-08-20 06:56] LABS: POTASSIUM 3.7 mmol/L (3.5-5.1)
[2016-08-20 06:58] LABS: CREATININE 2.94 mg/dl (0.61-1.24)
[2016-08-20 06:59] LABS: CALCIUM 9.9 mg/dl (8.4-10.2); MAGNESIUM 2.3 mg/dl (1.7-2.5); PHOSPHORUS 3.6 mg/dl (2.5-4.9)
--- NOTE | 2016-08-20 08:56 | PN ---
DATE: 08/20/2016 SUBJECTIVE: The patient is stable, no acute events overnight. No hemoptysis, hematemesis or hemato chezia. OBJECTIVE: VITAL SIGNS: Blood pressure 90/60, respiration 14, pulse 61, temperature 98.0. HEENT: Head is normocephalic. NECK: Supple. HEART: Regular rate. LUNGS: Show diminished breath sounds at the base. ABDOMEN: Soft, nontender to palpation. No rebound or guarding. EXTREMITIES: Negative for clubbing, cyanosis, no edema. DERMATOLOGIC: No rashes. MUSCULOSKELETAL: Positive decubitus wound. NEUROLOGIC: No change in exam. MEDICATIONS: The patient's medications have been reviewed. LABORATORY DATA: Shows sodium 138, potassium 3.7, chloride 105, BUN 40, creatinine 2.94. White cou nt 6.9, hemoglobin 8.9, hematocrit 29.6, platelet count 205. ASSESSMENT AND PLAN: 1. Sepsis, status post shock, etiology is multifactorial, possible line sepsis, healthcare-associat ed pneumonia, C difficile colitis. The patient is currently off pressor support, on IV antibiotics, oral vancomycin. We will continue current treatment plan. 2. Ventilator dependent respiratory failure. Vent settings have been reviewed. ABG has been revie wed. Continue to monitor. 3. Dysphagia. Status post PEG. Continue tube feeding. 4. End-stage renal disease. Plan for hemodialysis today for 3 hours, 3K bath, calcium 2.5. 5. Hypokalemia, improved. Continue to monitor. 7. Hypernatremia, improved. Continue free water flushes. 8. Anemia of chronic disease. Continue to monitor H and H levels. Continue Epogen. The patient i s status post blood transfusion. 9. Mineral bone disorder. Continue to monitor calcium and phosphorous levels. 10. Diabetes. Continue Accu-Cheks, insulin sliding scale. 11. C difficile colitis. Continue oral vancomycin. 12. Decubitus wound. Continue wound care. 13. Atrial fibrillation, rate controlled. Continue current medical management. Coumadin to be adj usted per cardiology. INR is not yet at goal. 14. Volume overload improving with hemodialysis. 15. Gastrointestinal and deep venous thrombosis prophylaxis. Continue proton pump inhibitor Coumad in. Dictated By: JENNIFER TAFOYA DO NR/ODALYS Conf#: [id number] [facility]#: [id number]
[2016-08-20] MEDS: FAMOTIDINE 20 MG TAB GTB SCH (09:27)
[2016-08-20] MEDS: MULTIVIT/CA CARB/B CMPLX/FA TAB GTB SCH (09:27)
[2016-08-20] MEDS: PAROXETINE 20 MG TAB GTB SCH (09:27)
[2016-08-20] MEDS: CHOLECALCIFEROL 2,000 UNIT CAP GTB SCH (09:27)
[2016-08-20] MEDS: FLUTICASONE 0.05% 16 GM NAS SPRAY NASAL SCH (09:27)
[2016-08-20] MEDS: ASCORBIC ACID 250 MG TAB GTB SCH (09:27)
[2016-08-20] MEDS: POTASSIUM CHLORIDE 20 MEQ POWDER FOR ORAL SOLN GTB SCH (09:27)
[2016-08-20] MEDS: COLLAGENASE 30 GM TUBE TOP SCH (09:28)
[2016-08-20] MEDS ORDERED: METOCLOPRAMIDE 10 MG INJ IV PRN (11:00)
--- NOTE | 2016-08-20 11:24 | CONS ---
Date/Time of Note Date/Time of Note DATE: 08/20/16 TIME: 11:22 Consult Date/Type/Reason Admit Date/Time Aug 08, 2016 at 11:44 Initial Consult Date 08/09/16 Type of Consultation: pulmonary/intensive care Ordering Provider: JENNIFER TAFOYA DO Subjective Patient remains comfortable off vasopressor support this morning Somnolent not following commands appears at baseline Objective Vital Signs Date Time Temp Pulse Resp B/P Pulse Ox O2 Delivery O2 Flow Rate FiO2 08/20/16 11:00 68 16 99/73 100 Mechanical Ventilator 08/20/16 09:37 30 08/20/16 08:00 97.1 Intake and Output 08/19/16 08/19/16 08/20/16 15:00 23:00 07:00 Intake Total 715 ml 280 ml 280 ml Output Total 0 ml 0 ml Balance 715 ml 280 ml 280 ml Exam PHYSICAL EXAMINATION GENERAL: Elderly gentleman, continues mechanical ventilation via tracheostomy VITAL SIGNS: see below. HEENT: Pupils equal, round, and reactive to light. Tracheostomy site clean and intact. CARDIAC: S1, S2, 1/6 systolic ejection murmur CHEST: Diminished air entry bilaterally. Rales right base ABDOMEN: Mildly distended. No bowel sounds. EXTREMITIES: No cyanosis, clubbing edema +2 NEUROLOGIC: Unable to assess, contractures Results/Medications Result Diagram: 08/20/16 0500 08/20/16 0500 Results 24 hrs Laboratory Tests Test 08/19/16 13:04 08/19/16 17:19 08/19/16 21:04 08/20/16 01:30 Bedside Glucose 151 146 157 147 Test 08/20/16 05:00 08/20/16 05:34 08/20/16 09:23 White Blood Count 6.9 Red Blood Count 2.69 L Hemoglobin 8.9 L Hematocrit 29.6 L Mean Corpuscular Volume 110.0 H Mean Corpuscular Hemoglobin 33.1 H Mean Corpuscular Hemoglobin Concent 30.1 L Red Cell Distribution Width 22.0 H Platelet Count 205 Mean Platelet Volume 10.5 H Neutrophils % 68.7 Lymphocytes % 18.0 Monocytes % 9.7 Eosinophils % 2.2 Basophils % 0.7 Nucleated Red Blood Cells % 0.0 Neutrophils # 4.7 Lymphocytes # 1.2 Monocytes # 0.7 Eosinophils # 0.2 Basophils # 0.1 Nucleated Red Blood Cells # 0.0 Prothrombin Time 17.9 H Prothrombin Time Ratio 1.4 INR International Normalized Ratio 1.47 Sodium Level 138 Potassium Level 3.7 Chloride Level 105 Carbon Dioxide Level 23 Anion Gap 14 Blood Urea Nitrogen 40 H Creatinine 2.94 H Glucose Level 130 Calcium Level 9.9 Phosphorus Level 3.6 Magnesium Level 2.3 Bedside Glucose 130 118 Medications Current Medications Cholecalciferol (Vitamin D) 2,000 unit DAILY GTB Last administered on 09:27; Admin Dose 2,000 UNIT; Start 08/09/16 at 09:00 Famotidine (Pepcid) 20 mg DAILY GTB Last administered on 08/20/16 09:27; Admin Dose 20 MG; Start 08/09/16 at 09:00 Fluticasone Propionate (Flonase 0.05% Nasal) 1 spray DAILY NASAL Last administered on 08/20/16 09:27; Admin Dose 1 SPRAY; Start 08/09/16 at 09:00 Multivit/Ca Carb/ B Cmplx/FA/Prenat (Magui-Cedric) 1 tab DAILY GTB Last administered on 08/20/16 09:27; Admin Dose 1 TAB; Start 08/09/16 at 09:00 Ondansetron HCl (Zofran (Ped)) 4 mg Q6H PRN GTB NAUSEA AND/OR VOMITING; Start 08/08/16 at 13:00 Paroxetine HCl (Paxil) 20 mg DAILY GTB Last administered on 08/20/16 09:27; Admin Dose 20 MG; Start 08/09/16 at 09:00 Senna (Senokot) 2 tab hs GTB Last administered on 08/19/16 21:09; Admin Dose 2 TAB; Start 08/08/16 at 21:00 Acetaminophen (Tylenol Liquid) 650 mg Q4H PRN GTB PAIN AND OR ELEVATED TEMP; Start 08/08/16 at 12:41 Ascorbic Acid (Vitamin C) 250 mg DAILY GTB Last administered on 08/20/16 09:27 ; Admin Dose 250 MG; Start 08/09/16 at 09:00 Bisacodyl (Dulcolax Supp) 10 mg DAILY PRN [place] CONSTIPATION; Start 08/08/16 at 13 :00 Atorvastatin Calcium (Lipitor) 20 mg DAILY@21 PO Last administered on 21:08; Admin Dose 20 MG; Start 08/09/16 at 21:00 Miscellaneous Information 1 ea NOTE XX ; Start 08/08/16 at 21:00 Glucose (Glutose) 15 gm Q15M PRN PO DECREASED GLUCOSE; Start 08/08/16 at 21:00 Glucose (Glutose) 22.5 gm Q15M PRN PO DECREASED GLUCOSE; Start 08/08/16 at 21: 00 Dextrose (D50w Syringe) 25 ml Q15M PRN IV DECREASED GLUCOSE; Start 08/08/16 at 21:00 Dextrose (D50w Syringe) 50 ml Q15M PRN IV DECREASED GLUCOSE; Start 08/08/16 at 21:00 Glucagon (Glucagen) 1 mg Q15M PRN IM DECREASED GLUCOSE; Start 08/08/16 at 21:00 Glucose (Glutose) 15 gm Q15M PRN BUCCAL DECREASED GLUCOSE; Start 08/08/16 at 21 :00 Insulin Aspart (Novolog Insulin Pen) NOVOLOG *MILD* ALGORI... Q4 SC Last administered on 08/20/16 01:32; Admin Dose 1 UNIT; Start 08/09/16 at 09:00 Collagenase (Santyl) 1 applic DAILY TOP Last administered on 08/20/16 09:28; Admin Dose 1 APPLIC; Start 08/09/16 at 21:00 Vancomycin HCl (Vancomycin Oral Syringe) 250 mg Q6 PO Last administered on 08/20 05:35; Admin Dose 250 MG; Start 08/12/16 at 18:00 Pantoprazole (Protonix Tab) 40 mg DAILY@06 PO Last administered on 08/20/16 05 :35; Admin Dose 40 MG; Start 08/14/16 at 09:00 Insulin Glargine 14 unit 14 unit QHS SC Last administered on 08/19/16 21:06; Admin Dose 14 UNIT; Start 08/17/16 at 21:00 Vancomycin HCl/ Sodium Chloride (Vancocin/NS) 250 ml @ 83.333 mls/ hr Q72H IVPB Last administered on 08/19/16 13:31; Admin Dose 83.333 MLS/HR; Start at 11:00 Potassium Chloride (Potassium Chloride Pwd/Soln) 40 meq DAILY GTB Last administered on 08/20/16 09:27; Admin Dose 40 MEQ; Start 08/19/16 at 09:00 Warfarin Sodium (Coumadin) 6 mg DAILY@17 GTB Last administered on 08/19/16 17: 22; Admin Dose 6 MG; Start 08/19/16 at 17:00 Nitroglycerin (Nitroglycerin 2% Oint) 1 inch Q8 PRN TD For SBP>170 Last administered on 08/19/16 09:30; Admin Dose 1 INCH; Start 08/19/16 at 09:30 Metoclopramide HCl (Reglan) 5 mg Q6H PRN IV RESIDUAL >120ML; Start 08/20/16 at 11:00 Lactobacillus Acidoph/Bulgaricus (Floranex) 1 tab TID PO ; Start 08/20/16 at 13: 00 Assessment/Plan Chief Complaint/Hosp Course IMPRESSION 1. Chronic respiratory failure. On mechanical ventilation 2. History of encephalopathy. 3. No evidence for adrenal insufficiency with a cortisol 24. 4. Dysphagia with G-tube. 5. Significant anemia requiring transfusion packed red blood cells 6. Status post septic shock 7. Chronic renal insufficiency PLAN: 1. Continue antibiotics. Consider de-escalation 2. Vent support. Hold off weaning for now 3. Tube feeding. 4. DVT and GI prophylaxis Disposition Transfer to telemetry Speed evaluation Problems: [facility]AY [facility], 2016 11:24
--- NOTE | 2016-08-20 11:26 | PN ---
DATE: SUBJECTIVE: No acute events overnight. The patient is currently in hemodialysis, off pressors, loo ks comfortable. VITAL SIGNS: Temperature 97, pulse 60, respirations 16, blood pressure 95/60, saturation 100% on ve nt. WBC 6.9, H and H 8.9 and 29.6, platelets 205. INDWELLINGS: Right chest Perm-A-Cath, trach, PEG, right femoral triple lumen catheter. MICROBIOLOGY: Blood culture on 08/14/2016 grew coagulase-negative staph species. ANTIMICROBIALS: The patient is on: 1. IV vancomycin. 2. P.o. vancomycin. 3. Status post amikacin. PHYSICAL EXAMINATION: GENERAL: This is a chronically ill-appearing, morbidly obese elderly man who is lying comfortably i n bed. HEENT: Head atraumatic, normocephalic. Sclerae anicteric. Buccal mucosa dry. NECK: Obese, tracheostomy present. CHEST: Rise symmetrical. Breath sounds diminished. HEART: S1, S2. ABDOMEN: Soft. Bowel tones present. EXTREMITIES: Without cyanosis. Bilateral trace edema. SKIN: With multiple decubitus. ASSESSMENT: 1. Status post septic shock. 2. Resolving pneumonia. 3. Clostridium difficile colitis. 4. Coagulase-negative Staphylococcus bacteremia, possibly line sepsis, repeat blood culture on 07/26 negative. 5. End-stage renal disease, hemodialysis dependent. 6. Morbid obesity. 7. Multiple chronic wounds. PLAN: The patient remains stable. We are going to repeat blood cultures today with hemodialysis. Continue him on current antimicrobials. Continue local wound care. He still has diarrhea. We will keep him on oral vancomycin and probiotics. Dictated By: SLAVA CHILDRESS [employer]LINE TICKET AGENT for MEKA MATOS/ODALYS Conf#: [id number] DID#: [id number]
[2016-08-20] MEDS ORDERED: LACTOBACILLUS CHEW TAB PO SCH (13:00)
[2016-08-20] MEDS: WARFARIN 3 MG TAB GTB SCH (18:06)
--- NOTE | 2016-08-21 07:40 | PN ---
DATE: 08/20/2016 CARDIOLOGY FOLLOWUP SUBJECTIVE: The patient remains in atrial fibrillation. Heart rate has remained stable off of pres sors, still on the vent. MEDICATIONS: Reviewed. PHYSICAL EXAMINATION: VITAL SIGNS: Temperature 98.1, heart rate of 75, blood pressure 96/69, respiration rate of 16, satu rating 100%. HEENT: Normocephalic, atraumatic, morbidly obese gentleman. Status post tracheostomy, on the vent. CARDIOVASCULAR: Irregularly irregular, systolic murmur. PULMONARY: With no wheezes anteriorly. GASTROINTESTINAL: Obese, soft, nontender. EXTREMITIES: Positive edema. NEUROLOGIC: Opens his eyes. PSYCHIATRIC: Appears to be calm. LABORATORY: WBC of 6.9, hemoglobin 8.9, platelets of 205. Sodium 138, potassium 3.7, BUN of 40, cr eatinine 2.94, glucose 130. INR is 1.47. ASSESSMENT AND PLAN: 1. Hypoxemia respiratory failure, status post tracheostomy, vent dependent. 2. Atrial fibrillation, chronic anticoagulation, heart rate control. 3. Status post sepsis and shock, currently blood pressure has improved. 4. Pneumonia. 5. Clostridium difficile. 6. Severe anemia. 7. Electrolyte abnormality, hyperkalemia. 8. Renal failure on dialysis. 9. Diabetes. 10. Fluid overload/congestive heart failure with diastolic dysfunction. 11. Aortic stenosis. RECOMMENDATIONS: Heart rate currently stable. We will continue anticoagulation with Coumadin, vent support will be continued, anticoagulation will be adjusted. Antibiotic as per ID recommendation. Dictated By: THOM DURAN MD AV/ODALYS Conf#: [id number] DID#: [id number] CC: JENNIFER TAFOYA DO;*EndCC*
--- NOTE | 2016-08-21 15:28 | TS ---
DATE OF ADMISSION: 08/08/2016 DATE OF DISCHARGE: 08/20/2016 HOSPITAL COURSE: This 66-year-old male with a past medical history of end-stage renal disease on he modialysis, history of chronic respiratory failure status post tracheostomy, history of dysphagia st atus post PEG, history of encephalopathy, diabetes, hypertension, AFib, presented to [facility] for worsening mental status. The patient, in the emergency room, was found to be sept ic with a temperature of 101.6, hypoxemic. The patient had an x-ray which showed airspace disease, right lung opacification. The patient was admitted to intensive care unit for evaluation. In terms of the patient's severe sepsis, etiology was felt secondary to healthcare-associated pneumonia, pos sible line infection. The patient was on pressor support, IV fluids and antibiotics. The patient w as eventually weaned off pressors and stabilized. Currently, at this time, the patient is on antibi otic therapy will be continued for a course of 2 weeks. The patient also was seen by Infectious Dis ease, Dr. Roe, which helped in management of his sepsis. In terms of the patient's respiratory f ailure, he was seen by special education director, Dr. Pandya. The patient was placed on ventilatory support wi th improvement in his opacification and has been clinically stable on current vent settings. The angelina nielsen also had hemodynamic fluctuations during the hospital course and eventually stabilized. The p atroxane's other medical problems, including anemia, mineral and bone disorder, diabetes, dysphagia, w ere stable during the hospital course. The patient was on hemodialysis and tolerated it well. The patient also had a significant decubitus wound and was seen by wound care. The patient received wou nd care during the hospital course. Currently, at this time, the patient is stable, in no acute dis tress. Will be transferred back to skilled nurse facility for continued care and where he will do o utpatient dialysis. FINAL DIAGNOSES: 1. Sepsis, status post shock. Etiology secondary to possible line sepsis, healthcare-associated pn eumonia, Clostridium difficile colitis. 2. Clostridium difficile. 3. Ventilator-dependent respiratory failure. 4. Dysphagia. 5. End-stage renal disease. 6. Hyperkalemia. 7. Hyponatremia. 8. Anemia of chronic disease. 9. Mineral and bone disease. 10. Diabetes. 11. Decubitus wound. 12. Atrial fibrillation, currently rate controlled. 13. Volume overload, congestive heart failure. 14. Kvqgq-yu-iqdaney encephalopathy. Etiology is toxic metabolic. The patient's mental status ret urned back to baseline. FINAL MEDICATIONS: See reconciliation list. Please note I spent over 40 minutes of time preparing the patient's discharge. Dictated By: JENNIFER KNOWLES/ODALYS Conf#: [id number] DID#: [id number]
== END 2016-08-20 21:00 | DRG 314 ==
LOC: E/R 08:31 → ICU 11:44
PROVIDERS: ADMIT Internal Medicine; ATTEND Internal Medicine
PROC: 5A1955Z Respiratory Ventilation, Greater than 96 Consecutive Hours (ICD-10-PCS; principal; 2016-08-08)
PROC: 5A1D60Z (ICD-10-PCS; 2016-08-09)
PROC: 02HV33Z Insertion of Infusion Device into Superior Vena Cava, Percutaneous Approach (ICD-10-PCS; 2016-08-09)
PROC: 30233N1 Transfusion of Nonautologous Red Blood Cells into Peripheral Vein, Percutaneous Approach (ICD-10-PCS; 2016-08-12)
PROC: 02HV33Z Insertion of Infusion Device into Superior Vena Cava, Percutaneous Approach (ICD-10-PCS; 2016-08-16)
DX: T82.7XXA Infection and inflammatory reaction due to other cardiac and vascular devices, implants and grafts, initial encounter (principal); A41.1 Sepsis due to other specified staphylococcus; N18.6 End stage renal disease; J96.22 Acute and chronic respiratory failure with hypercapnia; R65.21 Severe sepsis with septic shock; G92 Toxic encephalopathy; J18.9 Pneumonia, unspecified organism; L89.214 Pressure ulcer of right hip, stage 4; G93.1 Anoxic brain damage, not elsewhere classified; I13.2 Hypertensive heart and chronic kidney disease with heart failure and with stage 5 chronic kidney disease, or end stage renal disease; L89.224 Pressure ulcer of left hip, stage 4; L89.323 Pressure ulcer of left buttock, stage 3; L89.313 Pressure ulcer of right buttock, stage 3; R40.3 Persistent vegetative state; Z99.11 Dependence on respirator [ventilator] status; N39.0 Urinary tract infection, site not specified; Z68.42 Body mass index [BMI] 45.0-49.9, adult; E87.0 Hyperosmolality and hypernatremia; A04.7 Enterocolitis due to Clostridium difficile; I50.30 Unspecified diastolic (congestive) heart failure; T80.211A Bloodstream infection due to central venous catheter, initial encounter; E11.65 Type 2 diabetes mellitus with hyperglycemia; I16.0 Hypertensive urgency; D63.8 Anemia in other chronic diseases classified elsewhere; R13.10 Dysphagia, unspecified; Z93.1 Gastrostomy status; I48.91 Unspecified atrial fibrillation; Z79.02 Long term (current) use of antithrombotics/antiplatelets; D64.9 Anemia, unspecified; Z93.0 Tracheostomy status; L89.152 Pressure ulcer of sacral region, stage 2; E66.01 Morbid (severe) obesity due to excess calories; E87.6 Hypokalemia; Z99.2 Dependence on renal dialysis
CPT/HCPCS: 36415; 36430; 36569; 36600; 70450; 71010; 71250; 76937; 80048; 80053; 80162; 80202; 82270; 82533; 82728; 82803; 82962; 83540; 83605; 83735; 84100; 84132; 84145; 84484; 85025; 85610; 85730; 86850; 86900; 86901; 86920; 87040; 87070; 87075; 87081; 90935; 93005; 93306; 94002; 94003; 96365; 96366; 96367; 96372; 96375; 96376; C1769; J0278; J0360; J0692; J0886; J1815; J2185; J2765; J2997; J3370; J3480; J7030; J7040; J7050; J7060; P9016; P9047